=== PATIENT | male | born 1955 | race Caucasian/White ===

== ENCOUNTER 2017-04-13 20:23 | Inpatient (IN) | payer OTHER ==
[~2017-04-13] VITALS: Ht 182.9 cm; Wt 76.2 kg
[~2017-04-13 20:23] MED LIST: Propofol 10 mg/mL 20 mL Inj IVPUSH ONE
--- NOTE | 2017-04-13 20:33 | ED.REPORT ---
HPI-Dyspnea / Wheezing Date of Service Apr 13, 2017 ED Provider: Dr. Choi Pt is a 61 year old male with a history of asthma who presents to the ED via EMS with concerns for respiratory distress. He was found struggling to breath, but awake and alert. He was given several albuterol treatments and epinephrine without any improvement. He remained hypoxic, and was placed on 15L of O2 as well as on CPAP. He presents responsive only to pain. Per EMS, he was recently treated for a chest cold. Nursing Notes Stated Complaint: RESPIRATORY DISTRESS Chief Complaint: Respiratory Distress Nursing Notes Reviewed: Yes Allergies: Coded Allergies: No Known Allergies (Unverified , 04/13/17) Scheduled PRN Albuterol Neb Soln (Albuterol Neb Soln) 2.5 Mg/3 Ml Vial.neb 2.5 MG INHALATION Q4H PRN PRN For Dyspepsia or Heartburn Fluticasone Propionate (Flonase Allergy Relief) 50 Mcg/Actuation [place].susp 9.9 ML NS DIRECTED PRN PRN For Congestion General Time Seen by MD: 20:32 Chief Complaint Shortness of breath Hx Obtained From: EMS Arrived By: Ambulance Sudden in Onset?: Yes Onset Occurred: Just prior to arrival Symptom Duration: Since onset Location: : None Similar Sx Previous: Yes Past Medical History Past Medical History Asthma Review of Systems Constitutional: Denies: Chills, Fever, Malaise, Weakness - generalized Respiratory: Reports: Non-productive cough, Shortness of breath, Wheezing Cardiovascular: Denies: Chest pain, Syncope Musculoskeletal: Denies: Back pain, Extremity pain, Neck pain Complete sys rev & neg: except as marked. Physical Exam Initial Vital Signs Vital Signs (First) Date Time Temp Pulse Resp B/P Pulse Ox O2 Delivery O2 Flow Rate FiO2 04/13/17 20:52 111 22 128/87 99 Room Air 04/13/17 20:52 15 See paper chart Initial VS: Reviewed, Vital signs abnormal Alertness: Positive: Disoriented Neck: Atraumatic, Supple, No meningismus Cardiovascular: Heart rate NL, Regular rhythm Interpretation & Diagnostics Interpretation & Diagnostics: pH: 6.96 pCO2: 105 pO2: 404 Bicarb: 22.5 Lab Results Interpretation Result Diagram: 04/13/17202504/13/172025 Test 04/13/17 20:26 White Blood Count 7.5th/mm3 (3.8-10.1) Red Blood Count 5.04mil/mm3 (4.40-5.80) Hemoglobin 15.3g/dL (13.8-17.2) Hematocrit 46.6% (41.0-50.0) Mean Corpuscular Volume 92.5fL (81-100) Mean Corpuscular Hemoglobin 30.4pg (27.0-35.0) Mean Corpuscular Hemoglobin Concent 32.8% (32.0-37.0) Red Cell Distribution Width 13.2% (12.3-15.4) Platelet Count 169bil/L (150-400) Neutrophils (%) (Auto) 32.7% (40-74) Lymphocytes (%) (Auto) 49.5% (14-46) Monocytes (%) (Auto) 5.5% (4-12) Eosinophils (%) (Auto) 11.8% (0-5) Basophils (%) (Auto) 0.4% (0-3) Hold Purple Top Tube Received (Received) Hold Blue Top Tube Received (Received) Sodium Level 139mEq/L (134-144) Potassium Level 4.4mEq/L (3.5-5.2) Chloride Level 104mEq/L (97-108) Carbon Dioxide Level 21mmol/L (18-29) Blood Urea Nitrogen 17mg/dL (8-27) Creatinine 0.74mg/dL (0.76-1.27) Estimat Glomerular Filtration Rate 115mL/min (>59) Glucose Level 172mg/dL (60-99) Lactic Acid Level 2.2mmol/L (0.4-2.0) Calcium Level 9.4mg/dL (8.5-10.1) Total Bilirubin 0.4mg/dL (0.0-1.2) Aspartate Amino Transf (AST/SGOT) 22U/L (0-50) Alanine Aminotransferase (ALT/SGPT) 18U/L (0-44) Alkaline Phosphatase 78U/L (25-160) Troponin T 0.010ug/L (0.0-0.011) Pro-B-Type Natriuretic Peptide 62.58pg/mL (0-210) Total Protein 7.6g/dL (6.4-8.4) Albumin 4.5g/dL (3.4-5.0) Procalcitonin 0.03ng/mL (0.00-0.08) Hold Red Top Tube Received (Received) Hold [place] Top Tube Received (Received) Hold [place] Top Tube Received (Received) Lab Results Interpretation: Markedly abnormal ABG ECG Interpretation ECG Interpretation: SR - 95 Borderline prolonged KS interval Probable left atrial enlargement Nonspecific intraventricular conduction delay Inferior infarct, acute Time: 20:25 Interpreted by: ED physician X-Ray Chest Interpretation Chest Xray Interpretation: IMPRESSION: 1. Mild atypical pneumonia. Dictated by: Anabella Hazel M.D. on 04/13/2017 at 20:50 View: Portable, 1 view Interpretation / Wet Read by: Interpret - Radiologist Procedures Intubation Intubation Procedure: Patient was initially intubated with Mac laryngoscope, but it was immediately recognized that it was an esophageal intubation and repeat intubation was done immediately with the glide scope Time: 20:15 Procedure Performed by: ED physician Consent / Setup / Site Prep: Consent from spouse (spouse told paramedics that intubation was okay if necessary), No consent - emergent, Time-out performed, Oxygen administered, Pulse oximeter applied, house shorer applied , Hand hygiene observed Patient Position: Sniff position Blade / ET Tube / Route: Mac (unsuccessful esophageal intubation immediately noted), Lynx scope (verified esophageal intubation and then reintubated expeditiously), ET tube cuffed, Route: oral Neuromuscular Agent: Succinylcholine (100 mg IV) ET Confirmation: Direct visualization, BS equal, End tidal CO2 device, CXR, Rising O2 sat Secured / Marked: ET tube device Complications: None Post-Procedure: Condition improved, Tolerated procedure well, Patient stable Re-Eval/Medical Decision Med Decision/Clinical Course 61-year-old male in acute respiratory failure secondary to status asthmaticus after receiving multiple nebulizers and CPAP by the ambulance. He was unresponsive upon arrival. Intubation was done with succinylcholine and no other sedation. He was placed on a ventilator. His sensorium improved and then he required propofol sedation. Chest x-ray showed good tube position and evidence of atypical pneumonia per the radiologist. Blood cultures were done. He was given Solu-Medrol, magnesium, and further nebulizer treatments. His ABG shortly after intubation showed a pH of 6.9 and a PCO2 of 105. He was given an amp of bicarbonate followed by a drip of sodium acetate. The case was discussed with Dr. Felix the patient will be admitted to the CCU. Source of Hx: Old records Re-Evaluation/Progress : Time of Eval: 21:12 Re-Evaluation/Progress Note: Pt family is informed of the pt's status and the need to admit him at this time. They understand and agree, all questions are addressed. Consultation : Referral / Consult Name: GavinMariano garcíaen Edgardo Consulted With: Hospitalist Call Returned at: 21:12 Manager E Learning: Will see patient, Agrees with plan, Accepts admit Counseled Regarding: Diagnosis, Lab results, Need for admission Discharge & Departure Impression: Primary Impression: Acute respiratory failure Respiratory failure complication: hypercapnia Qualified Code: J96.02 - Acute respiratory failure with hypercapnia Additional Impressions: Status asthmaticus Asthma severity: severe persistent Qualified Code: J45.52 - Severe persistent asthma with status asthmaticus Atypical pneumonia Disposition: ADMITTED TO HOSPITAL Discharge Condition All VS Reviewed: Yes Condition: Stable Crit Care Except Billable Proc Time Spent: 30-74 minutes (60 minutes) Services Performed: Patient management by me, Time spent at bedside, Reviewing test results, Reviewing imaging, Discussing patient care, Documentation in record, Time with fam/surrogate Scribe Attestation Portions of this note were transcribed by Sarah Galarza. I, Dr. Crowley personally performed the history, physical exam and medical decision-making; I reviewed and confirmed the accuracy of the information in the transcribed note. Signed by: Karen Hua, 04/13/2017 2173 Patrick Choi MD Apr 13, 2017 20:33 EMILIA GALARZA Apr 13, 2017 20:42
[2017-04-13] MEDS ORDERED: Magnesium Sulf 2 Gm/50mL Water 2 GM in IV Premix 1 EACH IV ONE (20:35)
[2017-04-13] MEDS ORDERED: MethylprednisoLONE Sodium Succinate 62.5 mg/mL 2 mL Inj IVPUSH ONE (20:35)
[2017-04-13] MEDS ORDERED: Albuterol 2.5 mg/3 mL Inhalation Solution NEB ONE (20:35)
[2017-04-13] MEDS ORDERED: Albuterol-Ipratropium 3 mL Inhalation Solution NEB ONE (20:35)
[2017-04-13] MEDS: Propofol Inj 1,000,000 MCG in IV Premix 1 EACH IV SCH ×2 (20:38→23:41)
[2017-04-13] MEDS ORDERED: Propofol 10,000 mCg/mL 100 mL Inj ONE (20:40)
[2017-04-13] MEDS ORDERED: Succinylcholine Chloride 20 mg/mL 5 mL Inj IVPUSH ONE ×2 (20:40→21:57)
[2017-04-13 20:41] LABS: BASOPHILS % (AUTO) 0.4 % (0-3); EOSINOPHILS % (AUTO) 11.8 % (0-5); MONOCYTES % (AUTO) 5.5 % (4-12); Mean Corpuscular Hemoglobin 30.4 pg (27.0-35.0); Mean Corpuscular Volume 92.5 fL (81-100); NEUTROPHILS % (AUTO) 32.7 % (40-74); Platelet Count 169 bil/L (150-400)
[2017-04-13] MEDS ORDERED: Propofol 10 mg/mL 20 mL Inj IVPUSH ONE ×2 (20:45→21:15)
[2017-04-13 20:52] VITALS: BP_SYST 128; BP_SYST 197; BP_DIAS 118; BP_DIAS 87; PULSE 111; PULSE 142; RESP 22; RESP 40; O2SAT 70; O2SAT 99
--- NOTE | 2017-04-13 20:52 | DRSVH ---
PROCEDURE: X-RAY CHEST ONE VIEW, PORTABLE ([id number]) INDICATIONS: asthma, resp failure, ETT placement TECHNIQUE: One view of the chest was acquired. COMPARISON: None. FINDINGS: Surgical changes and devices: ETT is present, tip of which is in expected location. Lungs and pleura: No pleural effusions or pneumothorax. Mild patchy bilateral perihilar opacity. Mediastinum: Mediastinal contours appear normal. Heart size is normal. Bones and chest wall: No suspicious bony lesions. Overlying soft tissues appear unremarkable. IMPRESSION: 1. Mild atypical pneumonia. Dictated by: Anabella Hazel M.D. on 04/13/2017 at 20:50 Approved by: Anabella Hazel M.D. on 04/13/2017 at 20:51
[2017-04-13 21:00] VITALS: O2SAT 100
[2017-04-13 21:05] LABS: TROPONIN T 0.01 ug/L (0.0-0.011)
[2017-04-13] MEDS ORDERED: ALBU2.5V4 INHALATION (21:05)
[2017-04-13] MEDS ORDERED: FLUT9.9S NS (21:05)
[2017-04-13] MEDS ORDERED: Azithromycin Inj 500 MG in Dextrose 5% w/Vial Mate 250 ML IV ONE (21:05)
[2017-04-13] MEDS ORDERED: cefTRIAXone Inj 2,000 MG in Dextrose 5% Minibag Plus 50 ML IV ONE (21:05)
--- NOTE | 2017-04-13 21:05 | ABG ---
DateTimeAnalyzed 20:59:00 -_ pH ____6.961 - 7.350 7.450 pCO2 105 -mmHg 35.0 45.0 pO2 405 -mmHg 69.0 116 HCO3- ___22.5__ -mmol/L 22.0 26.0 ABE __-13.6__ -mmol/L -2.0 2.0 tHb ___14.8__ -g/dL O2Hb ___98.0__ -% COHb ____0.0__ -% MetHb ____1.0__ -% sO2 ___98.7__ -% 25.0 FIO2 ___50.0__ -% Drawn By LT - Date/Time Notified____ 21:05:00 -_ Notified By LT - Notified Whom DR LEIBRAND - B 758 -mmHg tO2 ___21.3__ -Vol% Justice test _Positive -
[2017-04-13] MEDS ORDERED: Sodium Bicarb (50 mEq) 8.4% 1 mEq/mL 50 mL Syringe IVPUSH ONE (21:15)
[2017-04-13] MEDS ORDERED: Albuterol 1.25 mg/3 mL Inhalation Solution NEB PRN (21:45)
[2017-04-13] MEDS ORDERED: Propofol 10,000 mCg/mL 20 mL Inj IV ONE (21:57)
[2017-04-13 21:59] VITALS: BP 141/95; PULSE 114; RESP 22; O2SAT 99
[2017-04-13 22:00] VITALS: BP 108/82; O2SAT 99
--- NOTE | 2017-04-13 22:00 | NUR ---
Admit to CCU Pt admitted to CCU room 2010 from ED. He is intubated and extremely restless/agitated on vent. Tele shows ST 100s-110s. SpO2 high 90s on vent settings, although lungs are coarse throughout and tight/wheezy. OG and Tinsley inserted per CCU protocol. Nebulizers, ABG, and sedation to help with airway management. is at bedside and took home pt belongings. She had all questions answered. Will continue to monitor. Care ongoing
[2017-04-13] MEDS: fentaNYL 2,500 mCg/250 mL 2,500 MCG in IV Premix 1 EACH IV SCH (22:29)
[2017-04-13 22:30] VITALS: BP 108/88; PULSE 106; RESP 20; O2SAT 100
[2017-04-13] MEDS ORDERED: Albuterol 2.5 mg/3 mL Inhalation Solution NEB PRN (22:45)
--- NOTE | 2017-04-13 23:26 | ABG ---
DateTimeAnalyzed 23:19:00 -_ pH ____7.308 - 7.350 7.450 pCO2 ___37.5__ -mmHg 35.0 45.0 pO2 149 -mmHg 69.0 116 HCO3- ___18.3__ -mmol/L 22.0 26.0 ABE ___-7.0__ -mmol/L -2.0 2.0 tHb ___14.8__ -g/dL O2Hb ___96.8__ -% COHb ____0.6__ -% MetHb ____1.0__ -% sO2 ___98.4__ -% 25.0 FIO2 ___40.0__ -% PEEP ____5.0__ -cmH2O Set_RR ___20.0__ -b/min Vt __550.0__ -L Drawn By TLA - Date/Time Notified____ 23:26:00 -_ Spontaneous_RR ___20.0__ -b/min Oxygen Device 1 VENTILATOR - Notified By TLA - Notified Whom Sun RN - B 758 -mmHg tO2 ___20.4__ -Vol% Justice test _Positive -
--- NOTE | 2017-04-13 23:54 | NUR ---
ASSIST INTUBATION. PT HAS A 8.0 TUBE SECURED AT 25@TEETH. BS BILAT AND TUBE PLACEMENT CONFIRMED WITH XRAY AND ETCO2 INDICATOR
[2017-04-14] VITALS (17 sets, daily range): BP systolic 89–116; BP diastolic 49–77; PULSE 78–109; RESP 16–20; O2SAT 91–100
[2017-04-14] MEDS: Albuterol-Ipratropium 3 mL Inhalation Solution NEB SCH ×9 (00:01→17:53)
[2017-04-14] MEDS: Chlorhexidine 0.12% 15 mL Oral Solution MT SCH ×7 (01:02→23:38)
--- NOTE | 2017-04-14 01:11 | PCM.HPMED ---
Subjective Date of Service Apr 13, 2017 Primary Provider: Admitting Physician: Chloe Felix DO Primary Care Physician: Nadya Burns Attending Physician: Chloe Felix DO Admit Status: From the Emergency Department Chief Complaint: Respiratory distress History of Present Illness: Pt is a 61 year old male with a history of asthma who presents to the ED via EMS in respiratory distress. Per his , he had complained of coughing, wheezing, and shortness of breath over the last 3-4 days associated with a recent cold. She states that his coughing and wheezing worsened over the last few days, and today he began to have worsening shortness of breath. This afternoon, he suddenly told her "I can't breathe", and began to decompensate, at which point EMS was contacted. He was found struggling to breathe, but awake and alert. He was given several albuterol nebulizer treatments and epinephrine en route without any improvement. He remained hypoxic, and was placed on 15L of O2 as well as on CPAP while en route. He was found to be unresponsive on arrival , and was intubated. ABG on arrival showed pH of 6.9 and a PCO2 of 105. He was given an amp of bicarbonate followed by a drip of sodium acetate. CXR showed mild patchy bilateral perihilar opacity suspicious for atypical pneumonia. Temp was 36.2, HR 114, RR up to 40, BP 141/95, and O2 sat 99 on the ventilator. Review of Systems: Comprehensive review of systems conducted and was negative except for the pertinent positives listed above. 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 Agitated and coughing on the ventilator, trying to get out of bed and uncooperative. Head: Normocephalic, atraumatic. External ears normal. Eyes: PERRLA, EOMI. Anicteric sclerae. Mouth: Mouth normal, Mucous membranes moist/pink Neck: Neck supple with full range of motion. Chest& Lungs: Diffuse expiratory wheezing bilaterally Cardiovascular: Tachycardic, Normal S1, Normal S2, No murmurs/rubs/gallops Abdomen: Non-tender, Non-distended, No masses, Normoactive bowel tones, Soft Musculoskeletal: Normal range of motion Extremities: No cyanosis/clubbing/edema bilaterally Neurological: Agitated and uncooperative. Lab and Diagnostics Result Diagram: 04/13/17202504/13/172025 Assessment & Plan Pt is a 61 year old male with a history of asthma who presents to the ED via EMS in respiratory distress, and was intubated in the ED. Admitted for status asthmaticus. Acute hypercapnic respiratory failure. Present on admission. Resolving. - Initial ABG: pH 6.96, pCO2 105, bicarb 22.5, pO2 405. Secondary to status asthmaticus. - Repeat ABG after sedation and intubation: pH 7.308, pCO2 37.5, pO2 149, bicarb 18.3. - Mechanical ventilation with decreased I:E ratio. - Continue propofol and fentanyl gtt for sedation Acute status asthmaticus. Present on admission. - Pt presents with severe asthma exacerbation refractory to beta agonist treatment and BiPAP, intubated on admission. Likely secondary to community acquired pneumonia. Received Mg sulfate in ED. - Continue mechanical ventilation - Duoneb q4h - Albuterol neb q2h PRN - Solu Medrol 80 mg q8h Acute sepsis. Present on admission. - Secondary to CAP. Temp 36, HR 142, RR 40 on admission. - NS @ 100 ml/hr - Treat underlying pneumonia - Trend lactic acid Acute respiratory acidosis. Present on admission. Resolving. - ABG as above. Pt received 1 amp of sodium bicarb. Resolved with mechanical ventilation. - Will repeat ABG in AM. Lactic acidosis, acute. Present on admission. - Lactic acid 2.2 on admission. Secondary to infection and respiratory distress. - Trend lactic acid q2h until normal Community acquired pneumonia, acute. Present on admission. - CXR showed mild patchy bilateral perihilar opacity. - Ceftriaxone and azithromycin IV - Strep pneumo and Legionella urine antigens - Sputum and blood cultures pending - MRSA screen Hyperglycemia, acute. Present on admission. - Pt has no prior history of diabetes. BG 172 on admission. - A1c ordered. - Recheck BG in AM with CMP - Bowel regimen as needed - Antiemetic as needed - Famotidine for GI prophylaxis Patient is admitted under inpatient status with expected length of stay greater than 2 midnights due to severity of presenting symptoms, risk of adverse event, and complexity of treatment plan. GI Prophylaxis: H2 carlo VTE Prophylaxis: Sub-Q Heparin (Unfractionated) Resuscitation Status: CPR: Attempt Resuscitation Attending Statement The patient was seen and examined together with house staff on 04/13/2017 and I agree with the history, exam and plan as outlined in the note above. Fitz William Apr 13, 2017 22:52 Chloe Felix DO Apr 14, 2017 04:21
--- NOTE | 2017-04-14 01:11 | ABG ---
DateTimeAnalyzed 01:04:00 -_ pH ____7.400 - 7.350 7.450 pCO2 ___30.6__ -mmHg 35.0 45.0 pO2 133 -mmHg 69.0 116 HCO3- ___18.6__ -mmol/L 22.0 26.0 ABE ___-4.6__ -mmol/L -2.0 2.0 tHb ___14.7__ -g/dL O2Hb ___97.3__ -% COHb ____0.7__ -% MetHb ____0.8__ -% sO2 ___98.8__ -% 25.0 FIO2 ___40.0__ -% PEEP ____5.0__ -cmH2O Set_RR ___20.0__ -b/min Vt __550.0__ -L Drawn By TLA - Date/Time Notified____ 01:11:00 -_ Spontaneous_RR ___20.0__ -b/min Oxygen Device 1 VENTILATOR - Notified By TLA - Notified Whom Radha-RN - B 758 -mmHg tO2 ___20.3__ -Vol% Justice test _Positive -
[2017-04-14] MEDS ORDERED: Albuterol-Ipratropium 3 mL Inhalation Solution NEB SCH (02:30)
[2017-04-14] MEDS: Propofol Inj 1,000,000 MCG in IV Premix 1 EACH IV SCH ×6 (03:10→23:37)
[2017-04-14] MEDS: 0.9% Sodium Chloride 1,000 ML IV SCH ×3 (03:11→16:13)
[2017-04-14] MEDS: Albuterol 2.5 mg/3 mL Inhalation Solution NEB PRN ×4 (03:33→16:02)
[2017-04-14] MEDS ORDERED: Albuterol 2.5 mg/3 mL Inhalation Solution NEB PRN (06:05)
[2017-04-14] MEDS ORDERED: Albuterol 2.5 mg/3 mL Inhalation Solution NEB ONE (06:08)
[2017-04-14] MEDS ORDERED: MethylprednisoLONE Sodium Succinate 40 mg/mL Inj IVPUSH SCH ×2 (06:24→20:30)
[2017-04-14 07:20] LABS: BASOPHILS % (AUTO) 0 % (0-3); EOSINOPHILS % (AUTO) 0 % (0-5); MONOCYTES % (AUTO) 2.2 % (4-12); Mean Corpuscular Hemoglobin 30.2 pg (27.0-35.0); Mean Corpuscular Volume 90.7 fL (81-100); NEUTROPHILS % (AUTO) 93.7 % (40-74); Platelet Count 204 bil/L (150-400)
[2017-04-14] MEDS ORDERED: Pantoprazole 4 mg/mL 10 mL Inj IVPUSH SCH (07:30)
[2017-04-14] MEDS: Famotidine Inj 20 MG in IV Premix 1 EACH IV SCH ×2 (07:52→20:10)
[2017-04-14] MEDS: Heparin 5,000 Unit/mL Inj SUBQ SCH ×2 (07:52→16:15)
[2017-04-14] MEDS ORDERED: Budesonide 0.5 mg/2 mL Inhalation Solution NEB SCH ×2 (09:00→21:00)
--- NOTE | 2017-04-14 09:06 | NUR ---
NUTRITION ASSESSMENT Assess: 61 YO M admitted to CCU for acute respiratory failure with asthma exacerbation secondary to pneumonia. Pt currently intubated. Pt has been NPO X 1 day. PMHX: Asthma. DIET: NPO. LABS: Cr 0.74, Glu 177 MEDICATIONS: Reviewed. Solu-medrol, Fentanyl, Propofol. GI: No BM noted. SKIN: No issues noted. ANTHROPOMETRICS: Wt: 82.2 kg, BMI 24.6 kg/m2, Admit wt: 82.2 kg. ESTIMATED NEEDS: VENT Calories: 6906-8091 kcal/day (20-25 kcal/kg BW) Protein: 123-148 g/day (1.5-1.8 g/kg BW) NUTRITION DIAGNOSIS: 1) Inadequate oral intake related to decreased ability to consume sufficient energy as evidenced by NPO/VENT status. INTERVENTION: 1) Will await plan of care decisions. If pt remains intubated, recommend initiating nutrition support in the next 24-48 hours. MONITOR/EVALUATE: NPO/Vent status, nutrition support, POC, labs, GI/nutrition status. Follow per high nutrition risk guidelines.
[2017-04-14 09:19] LABS: APPEARANCE,URINE HAZY (CLEAR,HAZY); COLOR,URINE STRAW (YELLOW); OCCULT BLOOD,URINE TRACE (NEGATIVE); PH,URINE 5.5 (5.0-8.0); UROBILINOGEN,URINE NORMAL (NORMAL)
--- NOTE | 2017-04-14 09:19 | CONS ---
[address] [address] CONSULTATION REPORT PATIENT: PAPO BEVERLY : 1955 MR#: [id number] ADMIT: 04/13/2017 JOB ID: [id number] DATE OF SERVICE: 04/14/2017 REQUESTING PHYSICIAN: Fitz William DO REASON FOR CONSULTATION: Status asthmaticus. HISTORY OF PRESENT ILLNESS: The patient is a 61-year-old male with a history of asthma who according to his had been complaining of some shortness of breath, cough, and wheezing for 3-4 days prior to admission. The afternoon of admission he complained of a marked increase in shortness of breath. Paramedics were called and he was found to be struggling to breathe, but awake and alert. Given epinephrine and nebulizer without improvement. Noted to be hypoxic treated with supplemental oxygen and subsequently CPAP. Upon arrival in the emergency department. He was unresponsive and intubated. No other history is available with that history being taken from chart notes. REVIEW OF SYSTEMS: Unable to obtain as the patient is currently intubated and sedated on the ventilator. ALLERGIES: None known. MEDICATIONS: Include p.r.n. albuterol and nasal Flonase. 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 Smoking history: None. PHYSICAL EXAMINATION: Currently temperature is 37.3. Pulse mid 70s. Respiratory rate 18. Blood pressure 112/68. O2 sat on FiO2 30%, PEEP of 6 is 100%. I and O shows 0.9 L in, 1 L out. General appearance: Sedated on ventilator. Pupils about 1-2 mm with the patient receiving both fentanyl and propofol. With stimulation does open his eyes. Seems to look towards examiner though makes no attempt at response. Conjunctivae are pink. Nose and throat could not be examined. Chest decreased breath sounds bilaterally. There are diffuse inspiratory and expiratory wheezes with a tidal volume of 550, rate of 18, FiO2 0.3, and a PEEP of 6. Peak inspiratory pressure 33, plateau is 18. PEEP is set at 6, measured at 8 to 9. Heart regular rhythm. Heart tones normal. Abdomen is soft. A few bowel tones noted. Extremities: No clubbing, cyanosis. No pretibial edema. Skin no rash. Chest x-ray shows the endotracheal tube in good position. There are few patchy ill-defined opacities. Most recent arterial blood gases on an FiO2 of 40%, PEEP of 5, respiratory rate of 20, with tidal volume of 550 shows a pO2 of 133, pCO2 of 30, pH of 7.40. LABORATORY DATA: White count of 8600 with 93 polymorphonuclears, no bands, 4 lymphs, 2 monocytes. Hemoglobin 14. Platelet count 204,000. Lab on admission showed a sodium 139, potassium 4.4, chloride 104, CO2 21, BUN 17, creatinine 0.7. Glucose 172. Lactic acid 2.2. Calcium 9.4 with an albumin of 4.5. Total bilirubin 0.4. AST 22, ALT 18, alkaline phos 78. Troponin T is 0.01. ProBNP is 62. Sputum studies are pending. Urine antigen is pending. ASSESSMENT: 1. Asthma. The patient is doing reasonably well. Has a mild degree of autoPEEP suggesting air trapping, however his ventilation is currently at 10.8 L. Ventilation is normal and in fact, we are overventilating the patient a bit. He is receiving Solu-Medrol and q.4 hour DuoNeb. Certainly the DuoNeb can be increased. Can start on inhaled steroids as well as the parenteral steroids and see how he does. Apparently has made significant strides over the last few hours. Apparently has a strong anxiety component and family has suggested he may need to be extubated while he is still sedated. That will make life somewhat difficult with asthmatic who has just been intubated. The patient is auto-PEEPing to some extent. We can drop his tidal volume a bit maybe drop his rate a bit, increase his inspiratory flow a bit and see how we do. The auto-PEEP is not particularly high though makes the work of breathing a little more difficult once spontaneous respiration resumes. 2. Possible upper respiratory tract infection. has described cold-like symptoms. I have not been able to speak to her, but will a get a few more details. However, might need to evaluate that a bit more carefully. Currently receiving azithromycin and ceftriaxone. Do not know that the latter is needed, pending sputum cultures. Will get a respiratory viral panel to see where we are with regard to the viral infection. PLAN: 1. Respiratory viral panel. 2. Increase nebulized albuterol to q.2 hours utilizing nebulized ipratropium q.4. 3. Budesonide nebulized 0.5 mg now and q.12. 4. Continue parenteral steroids. 5. Vent changes to minimize auto-PEEP. 6. Will need to speak with nursing regarding his anxiety component to see if we can taper his medications and hopefully assess for extubation. TIME SPENT: Time spent so far in critical care 50 minutes.
--- NOTE | 2017-04-14 11:11 | DRSVH ---
PROCEDURE: X-RAY CHEST ONE VIEW, PORTABLE ([id number]) INDICATIONS: RESP. DISTRESS TECHNIQUE: One view of the chest was acquired. COMPARISON: [facility], CR, XR CHEST 1VW (PORTABLE), 04/13/2017, 20:25. [facility], CR, XR CHEST 1VW (PORTABLE), 04/14/2017, 6:19. FINDINGS: Surgical changes and devices: Endotracheal and nasogastric tubes appear similar in position, with the tip of the nasogastric tube not included on the current study. Lungs and pleura: No pleural effusions or pneumothorax. Lungs are clear with resolution of the patc hy opacities seen on the prior 04/13/17 study. Mediastinum: Mediastinal contours appear normal. Heart size is normal. Bones and chest wall: No suspicious bony lesions. Overlying soft tissues appear unremarkable. IMPRESSION: 1. Resolution of patchy opacities seen on the 04/10/17 study which may have reflected pulmonary edema . No acute consolidation. Dictated by: Torres Barrow M.D. on 04/14/2017 at 11:05 Approved by: Torres Barrow M.D. on 04/14/2017 at 11:09
[2017-04-14] MEDS ORDERED: Sodium Chloride LOK Flush 10 mL Syringe IVFLUSH PRN ×2 (11:25)
[2017-04-14] MEDS ORDERED: Cisatracurium Inj 200,000 MCG in 0.9% Sodium Chloride 100 ML, Pharmacy To Mix 1 EA IV ONE (11:25)
--- NOTE | 2017-04-14 11:33 | NUR ---
Social Work Note: Brief Note/Multidisciplinary Rounds Data& Assessment: Pt was discussed in AM rounds today, per MD pt requires intubation and remains on the vent. Cl Briseno is a 61 year old male admitted on 04/13/2017 for acute respiratory failure with pneumonia. Pt has [employer] out of state insurance coverage. SW to follow up with pt regarding initial assessment and discharge planning when appropriate. No MD orders identified at this time. SW to continue to follow. Plan: Pt remains on the vent. SW to follow up with pt regarding initial assessment and discharge planning when appropriate. No MD orders identified at this time. SW to continue to follow. ELEAZAR Dupree
[2017-04-14] MEDS ORDERED: Norepinephrine 8,000 mCg/250 mL NS Premix IV ONE (11:37)
[2017-04-14] MEDS: Cisatracurium 200,000 mCg/100 mL NS IV SCH ×4 (11:47→23:36)
[2017-04-14] MEDS: cefTRIAXone Inj 1,000 MG in Dextrose 5% Minibag Plus 50 ML IV SCH ×2 (11:48→23:38)
[2017-04-14] MEDS: Norepineph 8,000 mCg/250 mL NS 8,000 MCG in IV Premix 1 EACH IV SCH (12:00)
[2017-04-14 12:19] LABS: Magnesium 2.2 mg/dL (1.6-2.6); Phosphorus 1.9 mg/dL (2.5-4.9)
--- NOTE | 2017-04-14 12:38 | DRSVH ---
PROCEDURE: X-RAY CHEST ONE VIEW, PORTABLE ([id number]) INDICATIONS: INTUBATED. TECHNIQUE: One view of the chest was acquired. COMPARISON: [facility], CR, XR CHEST 1VW (PORTABLE), 04/13/2017, 20:25. FINDINGS: Surgical Changes and Devices: ETT present projected over 4.8 cm above the vlad. Nasogastric tube has been placed tip traversing the GE junction. Lungs and Pleura: No pleural effusions or pneumothorax. Lungs are clear. Mediastinum: Mediastinal contours appear normal. Heart size is normal. Bones and Chest Wall: No suspicious bony lesions. The overlying soft tissues appear unremarkable. IMPRESSION: 1. Interval placement of nasogastric tube, otherwise, no acute cardiopulmonary process. Dictated by: Maximiliano CHICAS Interpreted: Reynaldo Rios MD on 04/14/2017 at 9:49 Transcribed by: SULTANA on 04/14/2017 at 15:38 Approved by: Reynaldo Rios M.D. on 04/14/2017 at 16:58
[2017-04-14] MEDS: LORazepam 100 mg/100 mL NS 100 MG in IV Premix 100 EACH IV SCH (13:21)
--- NOTE | 2017-04-14 13:36 | ABG ---
DateTimeAnalyzed 13:27:08 -_ pH ____7.155 - pCO2 ___69.1__ -mmHg pO2 ___69.2__ -mmHg HCO3- ___24.3__ -mmol/L 22.0 26.0 ABE ___-4.6__ -mmol/L tHb ___12.9__ -g/dL O2Hb ___89.0__ -% COHb ____0.8__ -% 1.5 MetHb ____0.9__ -% sO2 ___90.6__ -% FIO2 ___55.0__ -% Drawn By rn - Date/Time Notified____ 13:36:00 -_ Notified By btl - Notified Whom ___Dr. Kendregan - K+ ____4.8__ -mmol/L tO2 ___16.2__ -Vol% Justice test N/A -
--- NOTE | 2017-04-14 14:32 | PROG NOTE ---
[address] [address] PROGRESS NOTE PATIENT: PAPO BEVERLY : 1955 MR#: [id number] ADMIT: 04/13/2017 JOB ID: [id number] DATE: 04/14/2017 PROBLEM: Status asthmaticus. SUBJECTIVE: Called emergently because of marked increase in airway pressures. The tube was thought to be advanced, about 2 cm after turning. Repositioning of the endotracheal tube did not result in any improvement in the airways. Pressure continued to rise. Called to evaluate the patient. OBJECTIVE: Blood pressure initially was 80s over 50s. Dropped to as low as 54/42. Pulse which had been running in the 60s was in the mid 90s. O2 sat was 84%. Chest showed markedly decreased breath sounds. There were some mild inspiratory wheezes. There was all almost no expiratory sound. Heart: Regular rhythm. Heart tones normal. Abdomen soft. Ventilator with tidal volume of 550 was running in the low 40s. It kept increasing. Expiratory tidal volume was in the mid 100s. Patient given nebulized bronchodilators without effect. Peak pressures continued to rise. Tidal volume dropped to about 450. Peak airway pressure was 49. Plateau was 22. PEEP was initially set at five and was 8 or 9 this morning. Up well over 20 at this point. Blood pressure dropped. Patient given a liter of saline. Blood pressure christ to 1/3 over 53. Tidal volume dropped to 340. Rate dropped to 12. Still with some expiratory fluttering of airflow. Measured PEEP dropped to 12 with the patient paralyzed. He had been fighting the ventilator with taking deeper breaths, apparent expiratory collapse of the airway. With paralysis, the airway improved somewhat. No longer collapsing on exhalation. No longer auto-PEEPing. With PEEP set at 12, no auto PEEP noted. Tidal volume slowly increased to 370. Now getting expiratory tidal volumes of about 370. Subsequently increased to 390 with set PEEP at 12, measured PEEP at about 14. Oxygenation improved from 84 to 97, with an FiO2 increased from 0.3-0.55. Hemodynamics improved, though still with a peak inspiratory pressure of 44, plateau 22. Patient started on q.1 nebulized albuterol until better IV venous access obtained, in which case, we will probably start continuous nebulized albuterol. Steroids raised to 500 mg daily of Solu-Medrol. PLAN: 1. Albuterol 5 mg q.1 h. If not improved after PICC line placed, will start continuous nebulization 50 mg an hour. 2. Solu-Medrol IV push 125 mg q.6. 3. Vent change to tidal volume of 390, rate of 12, PEEP of 12, FiO2 0.55. 4. Placement of PICC line for better IV access and for increased drips. 5. IV cisatracurium. 6. If sedation not adequate, will add Ativan in order not to drop his pressure so much, which is likely due to auto PEEP and propofol. 7. Venous gases after PICC line placed. 8. Norepinephrine if needed to maintain a MAP of 65. 9. Continue IV antibiotics. 10. Check a stat magnesium, phosphorus. Additional time spent, 1 hour 12 minutes. informed of marked change in status.
[2017-04-14] MEDS: MethylprednisoLONE Sodium Succinate 62.5 mg/mL 2 mL Inj IVPUSH SCH ×2 (14:58→20:10)
--- NOTE | 2017-04-14 16:24 | PCM.PNMED ---
Subjective Date of Service Apr 14, 2017 Subjective Nurse reports that patient agitated overnight on ventilator with ST in the 100s to 110s. ABG at 23:00 showed pH 7.3, CO2: 37.5, O2: 149, HCO3: 18.3. Placed on Fentanyl 1,000,000mcg and Propofol 2,500mcg and tolerating well. Complete ROS unable to be complete as patient is on ventilator. Exam Vital Signs Vital Sign - Last Date Time Temp Pulse Resp B/P Pulse Ox O2 Delivery O2 Flow Rate FiO2 04/14/17 15:55 107 89/51 96 55 04/14/17 12:30 Ventilator 04/14/17 12:30 36.5 16 04/13/17 20:52 15 Intake and Output 04/13/17 04/13/17 04/14/17 Cumulative From/Thru 15:00 23:00 07:00 04/13/17 20:52 - 04/13/17 22:30 Intake Total 1000 ml 1000 ml Balance 1000 ml 1000 ml Intake IV Total 1000 ml 1000 ml # Voids 1 1 Exam Constitutional: Sedated, ventilated, will open eyes to voice Heart: Sinus tachycardia, no murmurs, no edema Lungs: Patient on ventilator, diffuse wheeze throughout ABD; Soft, bowel sounds present Skin: Warm, dry Psych: unable to assess as patient is sedated. IVs and Medications IV Fluids 3L NS at 100ml/hr Propofol 50mcg/kg/min Fentanyl 12.5m/hr Norepinepherine 7.7ml/hr Lorazepam 100mg 100ml @1ml/hr Medications Reviewed: Medications were reviewed in detail Medications Propofol 50mcg/kg/min Fentanyl 12.5m/hr Norepinepherine 7.7ml/hr Lorazepam 100mg 100ml @1ml/hr Lab and Diagnostics Item Value Date Time Red Blood Count 4.63 mil/mm3 04/14/17 07 Mean Corpuscular Volume 90.7 fL 04/14/17 07 Mean Corpuscular Hemoglobin 30.2 pg 04/14/17 07 Mean Corpuscular Hemoglobin Concent 33.3 % 04/14/17 07 Red Cell Distribution Width 13.2 % 04/14/17 07 Neutrophils (%) (Auto) 93.7 % H 04/14/17 07 Lymphocytes (%) (Auto) 4.0 % L 04/14/17 07 Monocytes (%) (Auto) 2.2 % L 04/14/17 07 Lactic Acid Level 1.9 mmol/L 04/14/17 0815 Phosphorus Level 1.9 mg/dL L 04/14/17 07 Magnesium Level 2.2 mg/dL 04/14/17 07 Glucose Level 177 mg/dL H 04/14/17 07 Estimat Glomerular Filtration Rate 115 mL/min 04/14/17 07 Total Bilirubin 0.3 mg/dL 04/14/17 07 Aspartate Amino Transf (AST/SGOT) 22 U/L 04/14/17 07 Calcium Level 8.7 mg/dL 04/14/17 07 Alanine Aminotransferase (ALT/SGPT) 17 U/L 04/14/17 07 Alkaline Phosphatase 69 U/L 04/14/17 07 Total Protein 6.5 g/dL 04/14/17 07 Albumin 3.9 g/dL 04/14/17 07 Urine Legionella pneumophilia Ag Negative 04/14/17 0845 Result Diagram: 04/14/17 0704/[id number] Microbiology PCR negative MRSA negative Urine Strep Antigen Negative X-Rays, CTs and MRIs PROCEDURE: X-RAY CHEST ONE VIEW, PORTABLE ([id number]) IMPRESSION: 1. Resolution of patchy opacities seen on the 04/10/17 study which may have reflected pulmonary edema. No acute consolidation. Dictated by: Torres Barrow M.D. on 04/14/2017 at 11:05 Approved by: Torres Barrow M.D. on 04/14/2017 at 11:09 12-lead ECG Sinus Tachycardia with nonspecific intraventricular conduction delay. Assessment & Plan Pt is a 61 year old male with a history of asthma who presents to the ED via EMS in respiratory distress, and was intubated in the ED. Admitted for status asthmaticus. Acute hypercapnic respiratory failure. Present on admission. Resolving. - Initial ABG: pH 6.96, pCO2 105, bicarb 22.5, pO2 405. Secondary to status asthmaticus. - ABG @13:27: pH 7.155, CO2: 69.1; O2: 69.2; bicarb: 24.3 - Mechanical ventilation with decreased I:E ratio. Ventilator settings as of 17:44: FiO2: 70; PEEP: 14; Rate: 16; TV: 330; Peak : 41; Plateau: 23; Auto PEEP 4. - Continue propofol and fentanyl gtt for sedation Acute status asthmaticus. Present on admission. - Pt presents with severe asthma exacerbation refractory to beta agonist treatment and BiPAP, intubated on admission. Likely secondary to community acquired pneumonia. Received Mg sulfate in ED. - Continue mechanical ventilation - Duoneb q4h - Albuterol neb q2h PRN - Solu Medrol 80 mg q8h Acute sepsis. Present on admission. - Secondary to CAP. Temp 36, HR 142, RR 40 on admission. - NS @ 100 ml/hr - Treat underlying pneumonia - Trend lactic acid Acute respiratory acidosis. Present on admission. Resolving. - ABG as above. Pt received 1 amp of sodium bicarb. Resolved with mechanical ventilation. - Will repeat ABG in AM. Lactic acidosis, acute. Present on admission. - Lactic acid 2.2 on admission. Most recent 1.9, down from 2.2 on admission. Secondary to infection and respiratory distress. - Trend lactic acid q2h. If AM lactic acid is normalized, stop trending. Community acquired pneumonia, acute. Present on admission. - CXR showed mild patchy bilateral perihilar opacity. - Ceftriaxone 1g IV Q12H - Abx day 1 - azithromycin 500mg IV Q24H - Abx day1 - Strep pneumo and Legionella urine antigens - Sputum and blood cultures pending - MRSA screen negative Hyperglycemia, acute. Present on admission. - Pt has no prior history of diabetes. BG 172 on admission. - A1c ordered. - Recheck BG in AM with CMP - Bowel regimen as needed - Antiemetic as needed - Famotidine for GI prophylaxis Patient is admitted under inpatient status with expected length of stay greater than 2 midnights due to severity of presenting symptoms, risk of adverse event, and complexity of treatment plan. GI Prophylaxis: H2 carlo VTE Prophylaxis: Sub-Q Heparin (Unfractionated) VTE Mechanical Devices: Intermittant Pneumatic CD Resuscitation Status: CPR: Attempt Resuscitation Attending Statement The patient was seen and examined together with Dr. Carter on 04/15/17 and I agree with the history, exam and plan as outlined in the note above. Coleman Carter DO Apr 14, 2017 16:24 April Ramírez DO Apr 19, 2017 13:21
--- NOTE | 2017-04-14 16:58 | DRSVH ---
PROCEDURE: X-RAY PICC LINE PLACEMENT BY NURSE ([id number]) INDICATIONS: IV access COMPARISON: None. FINDINGS: PICC was placed by the intravenous therapy team from the right side. Fluoroscopic spot fi lm demonstrates tip projected over the lower SVC. IMPRESSION: Tip of PICC projected over the lower SVC . Dictated by: Maximiliano CHICAS Interpreted: Reynaldo Rios MD on 04/14/2017 at 13:43 Approved by: Reynaldo Rios M.D. on 04/14/2017 at 16:56
[2017-04-14] MEDS: fentaNYL 2,500 mCg/250 mL 2,500 MCG in IV Premix 1 EACH IV SCH (17:25)
--- NOTE | 2017-04-14 17:48 | NUR ---
P: Severe Respiratory Distress I: Pt had episodes of peak pressures 54 and greater. Nimbex gtt on at 3 mcqs. Fentanyl 125 mcqs and propofol 50 mcqs. Ativan 2mg/hr and pt BIS 40-50. Train of four 1:4. Dr. Brooks and RT Alek Javier at bedside most of the day. Peep 16. 1.5 liters bolus NS given for BP. Norepinephrine at bedside to start gtt if needed. Rt PICC placed. Albuterol stopped and pt's Peak pressures dropped to 38-40 unknown cause. Pt not tolerating turning at all and CLRT on as much as possible. at bedside and updated on pt's condition and plan of care. Afebrile. NS now 100cc/hr. Tinsley patent and drained 450cc. OGT LCS 150cc green output. MRSA swab and Viral PCR sent. UA sent as well. E: Guarded. S: Restraints removed once pt more stable and nimbex infusing. Frequent rounding.
--- NOTE | 2017-04-14 19:45 | ABG ---
DateTimeAnalyzed 19:37:32 -_ pH ____7.103 - pCO2 ___75.6__ -mmHg pO2 ___79.1__ -mmHg HCO3- ___23.6__ -mmol/L 22.0 26.0 ABE ___-6.2__ -mmol/L tHb ___13.3__ -g/dL O2Hb ___93.6__ -% COHb ____0.7__ -% 1.5 MetHb ____0.5__ -% sO2 ___94.7__ -% FIO2 ___21.0__ -% PEEP ___14.0__ -cmH2O Set_RR 16 -b/min Vt __330.0__ -L Drawn By RN - Date/Time Notified____ 19:45:00 -_ Spontaneous_RR 16 -b/min Oxygen Device 1 VENTILATOR - Notified By MD - Notified Whom RN C.FELECIA - K+ ____5.7__ -mmol/L tO2 ___17.6__ -Vol% Justice test N/A -
[2017-04-14] MEDS ORDERED: Epinephrine Racemic 2.25% 0.5 mL Inhalation Solution NEB PRN (21:00)
[2017-04-14] MEDS: Azithromycin Inj 500 MG in Dextrose 5% w/Vial Mate 250 ML IV SCH (23:38)
[2017-04-15] VITALS (13 sets, daily range): BP systolic 97–111; BP diastolic 50–58; PULSE 62–93; RESP 16; O2SAT 95–98
--- NOTE | 2017-04-15 00:12 | ABG ---
DateTimeAnalyzed 00:05:00 -_ pH ____7.121 - 7.350 7.450 pCO2 ___70.5__ -mmHg 35.0 45.0 pO2 236 -mmHg 69.0 116 HCO3- ___22.0__ -mmol/L 22.0 26.0 ABE ___-8.5__ -mmol/L -2.0 2.0 tHb ___13.4__ -g/dL O2Hb ___97.5__ -% COHb ____0.6__ -% MetHb ____0.6__ -% sO2 ___98.7__ -% 25.0 FIO2 ___21.0__ -% PEEP ___14.0__ -cmH2O Set_RR ___16.0__ -b/min Vt __330.0__ -L Drawn By MD - Date/Time Notified____ 00:11:00 -_ Spontaneous_RR ___16.0__ -b/min Oxygen Device 1 VENTILATOR - Notified By MD - Notified Whom RN C.FELECIA - B 757 -mmHg tO2 ___18.9__ -Vol% Justice test N/A -
[2017-04-15] MEDS: Heparin 5,000 Unit/mL Inj SUBQ SCH ×4 (00:34→23:42)
[2017-04-15] MEDS: MethylprednisoLONE Sodium Succinate 62.5 mg/mL 2 mL Inj IVPUSH SCH ×4 (02:37→19:37)
[2017-04-15] MEDS: Propofol Inj 1,000,000 MCG in IV Premix 1 EACH IV SCH ×3 (03:23→19:59)
[2017-04-15] MEDS: Chlorhexidine 0.12% 15 mL Oral Solution MT SCH ×6 (03:23→23:42)
--- NOTE | 2017-04-15 04:18 | ABG ---
DateTimeAnalyzed 04:10:27 -_ pH ____7.206 - 7.350 7.450 pCO2 ___58.7__ -mmHg 35.0 45.0 pO2 144 -mmHg 69.0 116 HCO3- ___23.2__ -mmol/L 22.0 26.0 ABE ___-4.7__ -mmol/L tHb ___12.6__ -g/dL O2Hb ___98.8__ -% COHb ____1.5__ -% 1.5 MetHb ____0.1__ -% FIO2 ___21.0__ -% PEEP ___14.0__ -cmH2O Set_RR 16 -b/min Vt __400.0__ -L Drawn By MD - Date/Time Notified____ 04:17:00 -_ Spontaneous_RR 16 -b/min Oxygen Device 1 VENTILATOR - Notified By MD - Notified Whom RN C.FELECIA - K+ ____5.1__ -mmol/L Justice test N/A -
[2017-04-15 04:31] LABS: BASOPHILS % (AUTO) 0 % (0-3); EOSINOPHILS % (AUTO) 0 % (0-5); MONOCYTES % (AUTO) 2.7 % (4-12); Mean Corpuscular Hemoglobin 30.3 pg (27.0-35.0); Mean Corpuscular Volume 97.1 fL (81-100); Platelet Count 177 bil/L (150-400)
[2017-04-15 04:57] LABS: Magnesium 2.4 mg/dL (1.6-2.6); Phosphorus 3.2 mg/dL (2.5-4.9)
--- NOTE | 2017-04-15 06:46 | PCM.PNMED ---
Subjective Date of Service Apr 15, 2017 Subjective Nursing reports that patient does not tolerate turning. Patient still on Nimbex 3mcgs and Fentanyl 125mcg. When Albuterol was stopped, peak pressures dropped to 38-40. Tinsley drained 450cc of green output overnight. Patient sedated, paralyzed and on ventilator when I was in the room. Patient's was in the room. Exam Vital Signs Vital Sign - Last Date Time Temp Pulse Resp B/P Pulse Ox O2 Delivery O2 Flow Rate FiO2 04/15/17 05:26 36.8 84 16 111/58 98 Mechanical Ventilator 50 04/13/17 20:52 15 Intake and Output 04/14/17 04/14/17 04/15/17 Cumulative From/Thru 15:00 23:00 07:00 04/13/17 20:52 - 04/15/17 06:07 Intake Total 977 ml 2852 ml 2402 ml 7231 ml Output Total 1000 ml 600 ml 1250 ml 2850 ml Balance -23 ml 2252 ml 1152 ml 4381 ml Intake IV Total 977 ml 2852 ml 2402 ml 7231 ml Output Urine Total 950 ml 450 ml 1200 ml 2600 ml Gastric Drainage Total 50 ml 150 ml 50 ml 250 ml # Voids 1 # Bowel Movements 0 0 0 Exam Constitutional: Patient sedated and on ventilation. No acute distress Head: normocephalic and atraumatic Heart: regular rate and rhythm. No lower extremity edema bilaterally Lungs: Patient on ventilator. Inspiratory and expiratory wheezes throughout. No rales or rhonchi. Abdomen: Faint bowel sounds present. Soft. No ascites Skin: Warm, dry. No rash Psych: Unable to assess secondary to sedation. IVs and Medications IV Fluids NS 1L 100ml/hr Medications Reviewed: Medications were reviewed in detail Medications High Risk Meds include: Azithromycin Ceftriaxone Propofol Norepinepherine Fentanyl Lorazepam Lab and Diagnostics Item Value Date Time Red Blood Count 4.13 mil/mm3 L 04/15/17 0350 Mean Corpuscular Volume 97.1 fL 04/15/17 0350 Mean Corpuscular Hemoglobin 30.3 pg 04/15/17 0350 Mean Corpuscular Hemoglobin Concent 31.2 % L 04/15/17 0350 Red Cell Distribution Width 13.5 % 04/15/17 0350 Neutrophils (%) (Auto) 94.0 % H 04/15/17 0350 Lymphocytes (%) (Auto) 3.1 % L 04/15/17349 Monocytes (%) (Auto) 2.7 % L 04/15/17349 Estimat Glomerular Filtration Rate 69 mL/min 04/15/17349 Calcium Level 8.3 mg/dL L 04/15/17349 Magnesium Level 2.4 mg/dL 04/15/17349 Phosphorus Level 3.2 mg/dL 04/15/17349 Total Bilirubin 0.2 mg/dL 04/15/17349 Aspartate Amino Transf (AST/SGOT) 20 U/L 04/15/17349 Alanine Aminotransferase (ALT/SGPT) 16 U/L 04/15/17349 Alkaline Phosphatase 62 U/L 04/15/17349 Total Protein 6.2 g/dL L 04/15/17349 Procalcitonin 0.39 ng/mL H 04/15/17349 Result Diagram: 04/15/1734904/15/17349 Microbiology PCR negative MRSA negative Urine Strep Antigen Negative X-Rays, CTs and MRIs PROCEDURE: X-RAY CHEST ONE VIEW, PORTABLE ([id number]) - Images viewed IMPRESSION: 1. Resolution of patchy opacities seen on the 04/10/17 study which may have reflected pulmonary edema. No acute consolidation. Dictated by: Torres Barrow M.D. on 04/14/2017 at 11:05 Approved by: Torres Barrow M.D. on 04/14/2017 at 11:09 12-lead ECG Sinus Tachycardia with nonspecific intraventricular conduction delay. Assessment & Plan Pt is a 61 year old male with a history of asthma who presents to the ED via EMS in respiratory distress, and was intubated in the ED. Admitted for status asthmaticus. Acute hypercapnic respiratory failure. Present on admission. Resolving. - Initial ABG: pH 6.96, pCO2 105, bicarb 22.5, pO2 405. Secondary to status asthmaticus. - ABG @04:10 pH: 7.2; pCO2 58.7; pO2 144; bicarb 23.2 - Mechanical ventilation with decreased I:E ratio. - Continue propofol and fentanyl gtt for sedation Acute status asthmaticus. Present on admission. - Pt presents with severe asthma exacerbation refractory to beta agonist treatment and BiPAP, intubated on admission. Likely secondary to community acquired pneumonia. Received Mg sulfate in ED. - Continue mechanical ventilation - Duoneb q4h - Albuterol neb q2h PRN - Continue Solu Medrol 80 mg q8h Acute sepsis. Present on admission. - Secondary to CAP. Temp 36, HR 142, RR 40 on admission. - NS @ 100 ml/hr - Treat underlying pneumonia - patient receiving vancomycin, clindamycin, and meropenem. - Trend lactic acid Acute respiratory acidosis. Present on admission. Resolving. - ABG as above. Pt received 1 amp of sodium bicarb. Resolved with mechanical ventilation. - Will repeat ABG in AM. Lactic acidosis, acute. Present on admission. - Lactic acid 2.2 on admission. Most recent 1.9, down from 2.2 on admission. Secondary to infection and respiratory distress. - Trend lactic acid q2h. If AM lactic acid is normalized, stop trending. Community acquired pneumonia, acute. Present on admission. - CXR showed mild patchy bilateral perihilar opacity. - Ceftriaxone 1g IV Q12H - Abx day 1 - azithromycin 500mg IV Q24H - Abx day1 - Strep pneumo and Legionella urine antigens - Sputum and blood cultures pending - MRSA screen negative Hyperglycemia, acute. Present on admission. - Pt has no prior history of diabetes. BG 172 on admission. - A1c ordered. - Recheck BG in AM with CMP - Bowel regimen as needed - Antiemetic as needed - Famotidine for GI prophylaxis Patient is admitted under inpatient status with expected length of stay greater than 2 midnights due to severity of presenting symptoms, risk of adverse event, and complexity of treatment plan. GI Prophylaxis: H2 carlo VTE Prophylaxis: Sub-Q Heparin (Unfractionated) VTE Mechanical Devices: Intermittant Pneumatic CD Resuscitation Status: CPR: Attempt Resuscitation Attending Statement The patient was seen and examined together with Dr. Carter on 04/15/17 and I agree with the history, exam and plan as outlined in the note above. Coleman Carter DO Apr 15, 2017 06:46 April Ramírez DO Apr 18, 2017 17:11
[2017-04-15] MEDS ORDERED: Glucose 40% Oral Gel 15 Gm Tube PO PRN (08:15)
[2017-04-15] MEDS: Famotidine Inj 20 MG in IV Premix 1 EACH IV SCH ×2 (08:15→19:37)
--- NOTE | 2017-04-15 10:30 | NUR ---
NUTRITION FOLLOW-UP: Assess: 61 YO M admitted to CCU for acute respiratory failure with asthma exacerbation secondary to pneumonia. Pt currently intubated. Pt has been NPO X 2 days. Currently requiring nimbex. PMHX: Asthma. DIET: NPO. LABS: K 5.4, Glu 215, Ca 8.3, Alb 3.4, A1C 5.9 MEDICATIONS: Reviewed. Solu-medrol, Fentanyl, nimbex, Propofol @ 18ml/hr providing 475kcal/day GI: No BM noted. SKIN: No issues noted. ANTHROPOMETRICS: Wt: 86.1 kg, BMI 25.7 kg/m2, Admit wt: 82.2 kg. ESTIMATED NEEDS: VENT Calories: 7939-9922 kcal/day (20-25 kcal/kg BW) Protein: 120-145 g/day (1.5-1.8 g/kg BW) NUTRITION DIAGNOSIS: 1) Inadequate oral intake related to decreased ability to consume sufficient energy as evidenced by NPO/VENT status. --PERSISTS INTERVENTION: 1) If pt remains intubated and NPO, recommend start TF of pulmocare at 10ml/hr. Pt is currently on nimbex so recommend keep TF at trophic rate for at least 24hrs to establish tolerance. If TF is tolerated well, recommend advanced TF by 10ml q 12 hrs until reach goal rate of 50ml/hr to provide 1650kcal (2125kcal w/propofol) and 68g pro 2) Adjust goal rate based on daily propofol 3) Once TF at goal rate, recommend add 5 packets of prosource/day to better meet protein needs. 4) If BG levels continue to be high, will consider using Glucerna TF formula MONITOR/EVALUATE: NPO/Vent status, nutrition support, POC, labs, GI/nutrition status. Follow per high nutrition risk guidelines.
[2017-04-15] MEDS: Norepineph 8,000 mCg/250 mL NS 8,000 MCG in IV Premix 1 EACH IV SCH (12:00)
[2017-04-15] MEDS ORDERED: Insulin LISPRO 300 Unit/3 mL Inj SUBQ SCH (12:00)
--- NOTE | 2017-04-15 12:04 | DRSVH ---
PROCEDURE: X-RAY CHEST ONE VIEW, PORTABLE ([id number]) INDICATIONS: intubated TECHNIQUE: One view of the chest was acquired. COMPARISON: [facility], CR, XR CHEST 1VW (PORTABLE), 04/13/2017, 20:25. [facility], CR, XR CHEST 1VW (PORTABLE), 04/14/2017, 10:38. FINDINGS: Surgical changes and devices: ETT tip projects 6.7 cm above the vlad. A right PICC tube tip projec rizwana over the lower SVC. Nasogastric tube tip traverses the GE junction. Lungs and pleura: No pleural effusions or pneumothorax. Lungs are clear. Mediastinum: Mediastinal contours appear normal. Heart size is normal. Bones and chest wall: No suspicious bony lesions. Overlying soft tissues appear unremarkable. IMPRESSION: Support lines and tubes as above. No acute cardiopulmonary disease. Dictated by: Maximiliano Burns [facility] Interpreted: Yair Wyman MD on 04/15/2017 at 10:29 Approved by: Yair Wyman M.D. on 04/15/2017 at 12:01
--- NOTE | 2017-04-15 12:05 | PROG NOTE ---
[address] [address] PROGRESS NOTE PATIENT: PAPO BEVERLY : 1955 MR#: [id number] ADMIT: 04/13/2017 JOB ID: [id number] DATE: 04/15/2017 PROBLEM: Status asthmaticus. SUBJECTIVE: None. OBJECTIVE: Temperature 36.7, pulse 83-93, respiratory rate 16 with ventilator set at 16. Blood pressure 101/50 to 111/58. O2 sat on FiO2 50%, PEEP of 16 is 96%. I and O shows 3.8 L in, 1.6 L out. General appearance sedated heavily on paralytic. Eyes: Conjunctivae are pink. Pupils 1-2 mm. Chest moderately decreased breath sounds bilaterally. Fair air entry both sides. There are mild inspiratory extract expiratory wheezes throughout the right lung as well as the left upper lung field. There is a short inspiratory high-pitched squeaking sound as well as a similar sound on exhalation in the left lower lung field with without the presence of bronchovesicular breath sounds. Heart regular rhythm. Heart tones normal. Abdomen is soft, quiet. Extremities: No pretibial edema. Skin: No rash. LABORATORY DATA: White count of 13,100 with 94 polymorphonuclears, no bands, 3 lymphocytes, 2 monocytes. Hemoglobin at 12.5 slowly decreasing. Platelet count 177,000 relatively stable. Sodium 136, potassium 5.4, chloride 106. CO2 is 20. BUN 19. Creatinine 1.1. Glucose 215, recheck is 157. Calcium is 8.3 with an albumin of 3.4, phosphorus 3.2. Magnesium 2.4. Total bilirubin 0.2 AST 20, ALT 16, alkaline phos 62. Procalcitonin mildly elevated from 0.03-0.39 over 36 hours. Urine for Legionella antigen is negative. Respiratory viral panel by PCR is negative. Nasal swab for MRSA is negative. Urine for Strep antigen is negative. Sputum Gram stain shows rare polys. There is a few mixed pineda. Growing only normal pineda at present. Chest x-ray shows relatively clear lung whitaker. Endotracheal tube is 6.7 cm above the main vlad. Arterial blood gases on an FiO2 of 50%, PEEP of 14, tidal volume of 400, rate of 16 shows a pO2 of 144, pCO2 of 58, pH 7.20. ASSESSMENT: Status asthmaticus. It has become clear that any inhaled medication causes severe bronchospasm with marked increase in peak pressures without much change in plateau pressures. Auto-PEEP is better and in fact, we have been able to raise the tidal volume a bit with only minimal auto-PEEP. Currently PEEP is set at 14, measured maybe 16 or 17. Oxygenation is fine. Moderate to severe respiratory acidemia. PLAN: Will be to continue with IV steroids until the airways stabilize somewhat. Seemed a little more stable today than yesterday. Discussed IV theophylline but decided to pursue the steroids for the moment as we seemed to be making some progress. Potassium is a bit high. Not quite sure why. He is not receiving any potassium containing fluids or medications. Steroid acidosis may be playing a role, though. Will be rechecking his potassium later today. Endotracheal tube is a bit high. Will advance it at about 2 cm. Hopefully, will not result in any severe bronchospasm. Received a fair amount of fluid yesterday bordering on 4 L. Will decrease the fluid regimen. Currently with the IV fluids and drips he is getting about 150 mL an hour and will try to cut down on that if we can. Skyler spent in critical care: 50 minutes MTDD
[2017-04-15] MEDS: cefTRIAXone Inj 1,000 MG in Dextrose 5% Minibag Plus 50 ML IV SCH ×2 (12:08→23:13)
[2017-04-15] MEDS: 0.9% Sodium Chloride 1,000 ML IV SCH ×2 (12:41→17:03)
[2017-04-15] MEDS: fentaNYL 2,500 mCg/250 mL 2,500 MCG in IV Premix 1 EACH IV SCH (13:42)
[2017-04-15] MEDS: LORazepam 100 mg/100 mL NS 100 MG in IV Premix 100 EACH IV SCH ×2 (14:33→15:17)
[2017-04-15] MEDS: Cisatracurium 200,000 mCg/100 mL NS IV SCH ×2 (14:34)
--- NOTE | 2017-04-15 18:12 | NUR ---
P: Respiratory Distress I: Pt tolerating ventilation better today. Keeping pt sedated as much as possible to keep from him having bronchospasms. Nimbex 1.5 mcqs/kg/min. Fentanyl 125mcqs/hr. Propofol down to 25 mcqs/kg/hr. Ativan 1mg/hr. Afebrile. Blood sugars 159-142 and aware and holding insulin at this time. NS 100cc/hr. Train of four now 3:4, was 4:4 with nimbex at 1mcq and pt not tolerating it well. Tinsley 1050cc output. OGT LCS 150cc of thick green fluid. Pt unable to tolerate Q 2 turns and CLRT on . and pt's son's at bedside and was updated by on pt's condition and plan of care. Son's can have information and form on the front of the chart with a code word for telephone information. NSR. E: Guarded, but slightly more stable today then yesterday S: Nimbex on and no restraints needed. Frequent rounding.
[2017-04-15] MEDS: Azithromycin Inj 500 MG in Dextrose 5% w/Vial Mate 250 ML IV SCH (23:42)
[2017-04-16] VITALS (12 sets, daily range): BP systolic 100–120; BP diastolic 54–64; PULSE 53–60; RESP 16; O2SAT 94–97
[2017-04-16] MEDS: Propofol Inj 1,000,000 MCG in IV Premix 1 EACH IV SCH ×5 (00:33→23:57)
[2017-04-16] MEDS: Cisatracurium 200,000 mCg/100 mL NS IV SCH ×8 (00:33→19:43)
[2017-04-16] MEDS: 0.9% Sodium Chloride 1,000 ML IV SCH ×3 (00:34→23:57)
[2017-04-16] MEDS: MethylprednisoLONE Sodium Succinate 62.5 mg/mL 2 mL Inj IVPUSH SCH ×4 (02:00→19:49)
[2017-04-16] MEDS: Chlorhexidine 0.12% 15 mL Oral Solution MT SCH ×6 (03:58→23:57)
--- NOTE | 2017-04-16 04:12 | ABG ---
DateTimeAnalyzed 04:03:24 -_ pH ____7.285 - 7.350 7.450 pCO2 ___55.5__ -mmHg 35.0 45.0 pO2 ___90.6__ -mmHg 69.0 116 HCO3- ___26.3__ -mmol/L 22.0 26.0 ABE ___-0.5__ -mmol/L tHb ___11.7__ -g/dL O2Hb ___96.9__ -% COHb ____1.6__ -% 1.5 MetHb ____0.0__ -% sO2 ___98.5__ -% FIO2 ___40.0__ -% PEEP ___14.0__ -cmH2O Set_RR 16 -b/min Vt __400.0__ -L Drawn By MD - Date/Time Notified____ 04:12:00 -_ Spontaneous_RR 16 -b/min Oxygen Device 1 VENTILATOR - Notified By MD - Notified Whom RN J.COBOS - K+ ____4.9__ -mmol/L tO2 ___16.1__ -Vol% Justice test N/A -
--- NOTE | 2017-04-16 06:11 | NUR ---
Cardiac/Resp Patient stable this shift, remains on vent and ventilating well, BP stable and O2 sats in the upper 90's, HR SB-NSR, Remains on Nimbex, Propofol, Fentanyl and Ativan, no broncospastic coughing at all after suctioning, stable and uneventful shift, tolerating CLRT rotation, 50ml out OGT and 750ml urine output, no distress noted, will continue to monitor, updated yesterday evening, patients 2 sons visiting. Addendum: 04/16/17 at 0617 by LORELEI COBOS RN Amended: Links added.
[2017-04-16] MEDS: Famotidine Inj 20 MG in IV Premix 1 EACH IV SCH ×2 (07:46→19:44)
[2017-04-16] MEDS: Heparin 5,000 Unit/mL Inj SUBQ SCH ×2 (07:46→15:27)
[2017-04-16 08:23] LABS: Mean Corpuscular Hemoglobin 30.9 pg (27.0-35.0); Mean Corpuscular Volume 97.6 fL (81-100)
[2017-04-16 08:24] LABS: BASOPHILS % (AUTO) 0 % (0-3); EOSINOPHILS % (AUTO) 0 % (0-5); MONOCYTES % (AUTO) 3.1 % (4-12); NEUTROPHILS % (AUTO) 94.3 % (40-74); Platelet Count 143 bil/L (150-400)
[2017-04-16] MEDS: fentaNYL 2,500 mCg/250 mL 2,500 MCG in IV Premix 1 EACH IV SCH (09:28)
--- NOTE | 2017-04-16 10:22 | NUR ---
NUTRITION FOLLOW-UP: Assess: 61 YO M admitted to CCU for acute respiratory failure with asthma exacerbation secondary to pneumonia. Pt currently intubated. Pt has been NPO X 3 days. Currently requiring nimbex. Plan is to decrease nimbex today. Received verbal during rounds to start TF. Pt has not had a BM since admit. PMHX: Asthma. DIET: NPO. LABS: Cl 109, Glu 172, Ca 8.3, Alb 3.1 MEDICATIONS: Reviewed. Solu-medrol, Fentanyl, nimbex, Propofol @ 15ml/hr providing 396kcal/day GI: No BM noted. SKIN: No issues noted. ANTHROPOMETRICS: Wt: 87.9 kg, BMI 26.3kg/m2, Admit wt: 82.2 kg. ESTIMATED NEEDS: VENT Calories: 0723-5504 kcal/day (20-25 kcal/kg BW) Protein: 120-145 g/day (1.5-1.8 g/kg BW) NUTRITION DIAGNOSIS: 1) Inadequate oral intake related to decreased ability to consume sufficient energy as evidenced by NPO/VENT status. --PERSISTS INTERVENTION: 1) Recommend start TF of pulmocare at 10ml/hr. If TF is tolerated well, recommend advanced TF by 10ml q 12 hrs until reach goal rate of 50ml/hr to provide 1650kcal (2046kcal w/propofol) and 68g pro ( 100% kcal and 56% pro needs) 2) Adjust goal rate based on daily propofol 3) Once TF at goal rate, recommend add 5 packets of prosource/day to better meet protein needs. 4) If BG levels continue to be high, will consider using Glucerna TF formula MONITOR/EVALUATE: NPO/Vent status, TF start/suzan, BM, POC, labs, GI/nutrition status. Follow per high nutrition risk guidelines. Addendum: 04/17/17 at [address] TF on hold due to respiratory status. Recommend re-start TF when medically appropriate. Will continue to monitor per high nutrition risk guidelines.
[2017-04-16] MEDS ORDERED: Albuterol HFA 60 Puff 8 Gm Inhaler INHALATION ONE (10:25)
[2017-04-16] MEDS: Norepineph 8,000 mCg/250 mL NS 8,000 MCG in IV Premix 1 EACH IV SCH (12:00)
--- NOTE | 2017-04-16 12:16 | PROG NOTE ---
[address] [address] PROGRESS NOTE PATIENT: PAPO BEVERLY : 1955 MR#: [id number] ADMIT: 04/13/2017 JOB ID: [id number] DATE: 04/16/2017 PULMONARY CRITICAL CARE FOLLOWUP NOTE: PROBLEM: Status asthmaticus. SUBJECTIVE: None. OBJECTIVE: Temperature 36.7. Pulse 57-62. Respiratory rate 16. Blood pressure 115/56. O2 sat on FiO2 40%, PEEP of 14, measured at 17 is 97%. I and O shows 3.9 L in, 2.4 L out. General appearance: Sedated paralyzed on the ventilator. Eyes: Pupils pinpoint. Chest: Moderately to markedly decreased breath sounds. Diffuse inspiratory and expiratory wheezes. With a tidal volume of 400, PEEP of 14 though measured at 17, peak inspiratory pressure 36, plateau 24. Heart: Regular rhythm. Heart tones normal. Abdomen: Soft. Extremities: No pretibial edema. LABORATORY DATA: Shows a white count of 9100 with 94 polymorphonuclears, two lymphocytes, three monocytes. Hemoglobin 11.8. Platelet count 143,000. This is slowly decreasing. Sodium 141, potassium 5, chloride 109, CO2 is 22, BUN 27. Creatinine 0.8, improved from a value of 1.15 yesterday. Calcium 8.3, with an albumin of 3.1. Procalcitonin 0.22, down from 0.4. Total bilirubin, transaminases, and alkaline phosphatase normal. Chest x-ray shows no particular abnormalities. Endotracheal tube remains 6.7 cm above the vlad in spite of advancing it 2 cm yesterday. Lungs are clear. Arterial blood gases on FiO2 of 0.4, tidal volume of 400, PEEP of 14 (measured at 17), rate of 16, shows a pO2 of 90, pCO2 of 55, pH 7.28. After discussion with the RT, pharmacy, medical teams, and the family, it was decided to try one puff of albuterol via an inhaler. This was given. Within minutes peak pressure had dropped to 33. Currently about an hour after a one puff the peak inspiratory pressure is 31. Plateau 22. PEEP is 14 measured at 14. ASSESSMENT: Status asthmaticus. Doing better. Still with auto PEEP and decreased breath sounds indicative of significant bronchospasm. Also has quite a large space ventilation with a minute ventilation of a bit over 6 L with a CO2 of 58. Oxygenation somewhat improved. Did tolerate the albuterol inhaler. Will continue this modality, increasing as he tolerates it. Start decreasing the paralytic. 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 This is day four. Can start trophic tube feedings. No evidence of pulmonary infection. Can discontinue the antibiotics. indicates that the patient's nebulizer that is usually crystal clean was rather filthy when she saw it. She is not sure whether he was using it in this condition but at the time of the paramedics arrival on Friday the mouthpiece was quite dirty. This might have lead to a respiratory tract infection precipitating the problem. One would also wonder about the sudden change in behavior if normally the nebulizer is pristine. PLAN: 1. Will give albuterol on a p.r.n. basis for the moment. 2. Will discontinue cisatracurium later today. 3. Discontinue antibiotics. 4. Pulmocare via OG tube at 10 mL an hour with water flushes 20 mL q.4 h. Discussed the overall findings and plan with the patient's family. TIME: Time spent so far in critical care 60 minutes.
--- NOTE | 2017-04-16 15:45 | NUR ---
Social Work Note: Initial Assessment/Multidisciplinary Rounds Data& Assessment: EMR Reviewed. Pt was discussed in AM rounds today, per MD pt is not medically ready for discharge at this time. Pt remains on the vent. SW met with pt at bedside to collect initial assessment information, SW role explained and discharge planning checklist provided. Cl Briseno is a 61 year old male admitted on 04/13/2017 for acute respiratory failure and atypical pneumonia. Pt required intubation. Pt is uninsured, pt working with [employer] to see if pt might qualify for Medicaid, SW provided pt with financial examiner application. Pt PCP is Nadya MERINO and normally uses a nebulizer and inhalers for his asthma at baseline. Pt otherwise is independent at baseline and does not require DME for ambulation. 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 Pt lives in [place] with his spouse and drives normally. Pt does not have HH or SNF hx. Pt does not have LTC insurance or VA benefits. Pt does not have DPOA/AD paperwork. Pt very distressed over pt current condition. SW to follow up with pt regarding DPOA/AD paperwork if pt condition improves. Pt denies any needs at this time. SW to continue to follow for pt prognosis, MD orders and if any needs for pt or pt family should arise. Plan: Pt remains on the vent. Prognosis is unclear at this time. Pt denies any needs at this time. SW to continue to follow for pt medial progression and if any needs for pt or pt family should arise. ELEAZAR Dupree Addendum: 04/16/17 at 1557 by VAN COLEMAN Amended: Links added.
--- NOTE | 2017-04-16 16:17 | NUR ---
Paralytics, Sedation.. Has done well on vent and tolerated Albuterol doses without any reactions. Has been able to suzan having peep decreased and no desats noted. Has had nimbex weaned to off as of 1609 and has had Ativan weaned to off also. Pt remains sedate with no distress noted. Will start tube feeds now that pt is off paralytics. and sons have been at the bedside and are updated on status and plan of care.
--- NOTE | 2017-04-16 17:02 | NUR ---
Ventilation.. noted to have increasing peak pressures off paralytics. Dr Brooks and residents at the bedside. Pt had Nimbex restarted and Ativan gtt resumed and peak pressures are decreasing after these measures and an Albuterol dose. Tube feeds held per MD order.
--- NOTE | 2017-04-16 17:04 | PCM.PNMED ---
Subjective Date of Service Apr 16, 2017 Subjective Nursing reports no acute events overnight. Resting comfortably in bed on ventilator. Remains on Nimbex, Propofol, Fentanyl and Ativan for sedation and paralysis. Patient resting comfortably. Ventilator settings include FiO2 40%, PEEP 14, Rate of 16 and TV of 400. Exam Vital Signs Vital Sign - Last Date Time Temp Pulse Resp B/P Pulse Ox O2 Delivery O2 Flow Rate FiO2 04/16/17 16:00 36.9 56 16 120/59 97 Mechanical Ventilator 40 04/13/17 20:52 15 Intake and Output 04/15/17 04/15/17 04/16/17 Cumulative From/Thru 15:00 23:00 07:00 04/13/17 20:52 - 04/16/17 05:56 Intake Total 1566 ml 1940 ml 46146 ml Output Total 1200 ml 800 ml 4850 ml Balance 366 ml 1140 ml 5887 ml Intake IV Total 1566 ml 1940 ml 82696 ml Output Urine Total 1050 ml 750 ml 4400 ml Gastric Drainage Total 150 ml 50 ml 450 ml # Voids 1 # Bowel Movements 0 0 Exam Constitutional: Sedated, In no acute distress Head: Normocephalic and atraumatic Eyes: no scleral icterus, pink conjunctiva Heart: Regular rate (60bpm) regular rhythm. No murmurs. No peripheral edema Lungs: Ventilated. Diffuse expiratory wheeze throughout improved from yesterday. No rales or rhonchi. ABD: Soft. Bowel sounds present throughout. Musculoskeletal. Appropriate muscle tone. No gross deformity. Skin: warm, dry, no rashes.. Psych: unable to assess IVs and Medications IV Fluids 2L NS given in the last 24 hours Medications Reviewed: Medications were reviewed in detail Medications Fentanyl Propofol Heparin Lorazepam Norepinephrine Lab and Diagnostics Item Value Date Time Red Blood Count 3.82 mil/mm3 L 04/16/17636 Mean Corpuscular Volume 97.6 fL 04/16/17636 Mean Corpuscular Hemoglobin 30.9 pg 04/16/17636 Mean Corpuscular Hemoglobin Concent 31.6 % L 04/16/17636 Red Cell Distribution Width 13.7 % 04/16/17636 Neutrophils (%) (Auto) 94.3 % H 04/16/17636 Lymphocytes (%) (Auto) 2.5 % L 7/26/17 0637 Monocytes (%) (Auto) 3.1 % L 04/16/17 06 Eosinophils (%) (Auto) 0 % 04/16/17636 Basophils (%) (Auto) 0 % 04/16/17 06 Estimat Glomerular Filtration Rate 103 mL/min 04/16/17 06 Lactic Acid Level 1.5 mmol/L 04/16/17636 Calcium Level 8.3 mg/dL L 04/16/17636 Total Bilirubin 0.2 mg/dL 04/16/17636 Aspartate Amino Transf (AST/SGOT) 11 U/L 04/16/17 06 Alanine Aminotransferase (ALT/SGPT) 11 U/L 04/16/17 06 Alkaline Phosphatase 50 U/L 04/16/17636 Total Protein 5.6 g/dL L 04/16/17 06 Albumin 3.1 g/dL L 04/16/17 06 Procalcitonin 0.22 ng/mL H 04/16/17636 Result Diagram: 04/16/1763604/16/17636 Microbiology PCR negative MRSA negative Urine Strep Antigen Negative X-Rays, CTs and MRIs PROCEDURE: X-RAY CHEST ONE VIEW, PORTABLE ([id number]) - Images viewed IMPRESSION: 1. Resolution of patchy opacities seen on the 04/10/17 study which may have reflected pulmonary edema. No acute consolidation. Dictated by: Torres Barrow M.D. on 04/14/2017 at 11:05 Approved by: Torres Barrow M.D. on 04/14/2017 at 11:09 12-lead ECG Sinus Tachycardia with nonspecific intraventricular conduction delay. Assessment & Plan Pt is a 61 year old male with a history of asthma who presents to the ED via EMS in respiratory distress, and was intubated in the ED. Admitted for status asthmaticus. Acute hypercapnic respiratory failure. Present on admission. Resolving. - Initial ABG: pH 6.96, pCO2 105, bicarb 22.5, pO2 405. Secondary to status asthmaticus. - ABG @04:03 (04/16) pH 7.285, pCO2 55.5, pO2 90.6, bicarb 26.3 - Mechanical ventilation with decreased I:E ratio. - Continue propofol and fentanyl gtt for sedation Acute status asthmaticus. Present on admission. (Active) - Pt presents with severe asthma exacerbation refractory to beta agonist treatment and BiPAP, intubated on admission. Likely secondary to community acquired pneumonia. Received Mg sulfate in ED. - Continue mechanical ventilation - Duoneb q4h currently held as this causes bronchospasms - Albuterol inhaler 2 puffs q4h - Start Aminophylline - Continue Solu Medrol 125 mg q6h Acute sepsis. Present on admission. (Resolved) - Secondary to CAP. Temp 36, HR 142, RR 40 on admission. - Discontinued NS @ 100 ml/hr - Treat underlying pneumonia - patient received Ceftrioxone and Azithromycin now discontinued - Trend lactic acid Acute respiratory acidosis. Present on admission. Resolving. - ABG as above. Resolved with mechanical ventilation. - Will continue to monitor Lactic acidosis, acute. Present on admission. (Resolved) - Lactic acid 2.2 on admission. Most recent 1.5, down from 1.9 on admission. Secondary to infection and respiratory distress. - Continue to monitor as needed or if patient spikes a temp. Community acquired pneumonia, acute. Present on admission. (Resolved) - CXR showed mild patchy bilateral perihilar opacity. - Ceftriaxone 1g IV Q12H discontinued - azithromycin 500mg IV Q24H discontinued - Strep pneumo and Legionella urine antigens - Sputum and blood cultures pending - MRSA screen negative Hyperglycemia, acute. Present on admission. - Pt has no prior history of diabetes. BG 172 on admission. - Increase Lantus 10U - A1c 5.7 - Recheck BG in AM with CMP - Bowel regimen as needed - Antiemetic as needed - Famotidine for GI prophylaxis Patient is still showing signs of severe status asthmaticus. Patient has shown some minimal improvement however still remains very tenuous. GI Prophylaxis: H2 carlo VTE Prophylaxis: Sub-Q Heparin (Unfractionated) VTE Mechanical Devices: Intermittant Pneumatic CD Resuscitation Status: CPR: Attempt Resuscitation Attending Statement The patient was seen and examined together with Dr. Carter on 04/16/2017 and I have added additional information to the note above. Coleman Carter DO Apr 16, 2017 17:04 April Ramírez DO Apr 17, 2017 12:46
--- NOTE | 2017-04-16 17:48 | ABG ---
DateTimeAnalyzed 17:41:00 -_ pH ____7.228 - pCO2 ___66.4__ -mmHg pO2 ___53.0__ -mmHg HCO3- ___26.7__ -mmol/L ABE ___-1.7__ -mmol/L tHb ___12.3__ -g/dL O2Hb ___82.7__ -% COHb ____0.8__ -% MetHb ____1.1__ -% sO2 ___84.3__ -% FIO2 ___40.0__ -% PEEP ___15.0__ -cmH2O Set_RR ___15.0__ -b/min Vt __360.0__ -L Drawn By as - Date/Time Notified____ 17:47:00 -_ Spontaneous_RR ___15.0__ -b/min Oxygen Device 1 VENTILATOR - Notified By ams - Notified Whom Omaira Paresh, RN -___ B 759 -mmHg tO2 ___14.3__ -Vol% Justice test N/A -
[2017-04-16] MEDS ORDERED: Insulin GLARgine 100 Unit/mL Syringe SUBQ SCH ×2 (21:00)
[2017-04-16] MEDS: LORazepam 100 mg/100 mL NS 100 MG in IV Premix 100 EACH IV SCH (23:58)
[2017-04-17] VITALS (12 sets, daily range): BP systolic 115–156; BP diastolic 59–88; PULSE 54–89; RESP 14–16; O2SAT 92–97
[2017-04-17] MEDS: Heparin 5,000 Unit/mL Inj SUBQ SCH ×3 (00:10→17:25)
[2017-04-17] MEDS: MethylprednisoLONE Sodium Succinate 62.5 mg/mL 2 mL Inj IVPUSH SCH ×4 (02:22→20:16)
[2017-04-17] MEDS: Chlorhexidine 0.12% 15 mL Oral Solution MT SCH ×5 (04:13→20:14)
[2017-04-17 05:26] LABS: Mean Corpuscular Hemoglobin 30.2 pg (27.0-35.0); Mean Corpuscular Volume 97.1 fL (81-100)
--- NOTE | 2017-04-17 05:35 | NUR ---
Resp/Cardiac/Ventilator Patient remains on mechanical ventilator. Paralyzed on Nimbex and sedated on Propofol and Fentanyl, patient not tolerating care and peak pressures increased to 48 when partial bath done, increased Nimbex to 2 and then down to 1.75, BIS 30-40 and TOF 2/4, patients sats decreased and FIO2 increased to 50% for 2 hours, peak pressures finally decreased to the high 30's after an hour or so, 200ml out OGT on LCS, 850ml urine output, Ativan off this shift, will continue to monitor, no distress noted this AM. Addendum: 04/17/17 at 0544 by LORELEI COBOS RN Amended: Links added.
[2017-04-17] MEDS ORDERED: Insulin GLARgine 100 Unit/mL Syringe SUBQ ONE (07:05)
[2017-04-17] MEDS: Propofol Inj 1,000,000 MCG in IV Premix 1 EACH IV SCH (07:34)
[2017-04-17] MEDS: Famotidine Inj 20 MG in IV Premix 1 EACH IV SCH ×2 (07:35→20:13)
[2017-04-17] MEDS: fentaNYL 2,500 mCg/250 mL 2,500 MCG in IV Premix 1 EACH IV SCH (07:35)
[2017-04-17] MEDS: 0.9% Sodium Chloride 1,000 ML IV SCH ×2 (07:55→20:10)
[2017-04-17] MEDS ORDERED: LORazepam 100 mg/100 mL NS 100 MG in IV Premix 100 EACH IV SCH (08:29)
[2017-04-17] MEDS ORDERED: Furosemide 10 mg/mL 2 mL Inj IVPUSH ONE (08:30)
[2017-04-17] MEDS ORDERED: Glucose 40% Oral Gel 15 Gm Tube PO PRN (08:35)
--- NOTE | 2017-04-17 09:45 | ABG ---
DateTimeAnalyzed 09:39:00 -_ pH ____7.288 - pCO2 ___59.0__ -mmHg pO2 ___52.2__ -mmHg HCO3- ___27.4__ -mmol/L ABE ____0.2__ -mmol/L tHb ___12.2__ -g/dL O2Hb ___82.3__ -% COHb ____1.0__ -% MetHb ____0.8__ -% sO2 ___83.8__ -% FIO2 ___40.0__ -% PEEP ___15.0__ -cmH2O Set_RR ___16.0__ -b/min Vt __400.0__ -L Drawn By as - Date/Time Notified____ 09:44:00 -_ Spontaneous_RR ___16.0__ -b/min Oxygen Device 1 VENTILATOR - Notified By ams - Notified Whom dr kendregan - B 761 -mmHg tO2 ___14.1__ -Vol% Justice test N/A -
--- NOTE | 2017-04-17 10:44 | DRSVH ---
PROCEDURE: X-RAY CHEST ONE VIEW, PORTABLE ([id number]) INDICATIONS: intubated, asthma exacerbation TECHNIQUE: One view of the chest was acquired. COMPARISON: [facility], CR, XR CHEST 1VW (PORTABLE), 04/15/2017, 9:02. FINDINGS: Surgical changes and devices: Endotracheal tube, right PICC line and enteric tube are unchanged Lungs and pleura: No pleural effusions or pneumothorax. There is mild improvement in central airway thickening and diffuse/hazy groundglass opacities since 04/15/17. No new focal consolidation is seen Mediastinum: Mediastinal contours appear normal. Heart size is normal. Bones and chest wall: No suspicious bony lesions. Overlying soft tissues appear unremarkable. IMPRESSION: Stable support equipment. Improved mild diffuse ground glass opacities since 04/15/17 suggesting improved atelectasis/aspiration , or pulmonary edema. Please correlate clinically. No new focal consolidation. Dictated by: Jose Aparicio MD. on 04/17/2017 at 10:26 Approved by: Jose Aparicio M.D. on 04/17/2017 at 10:42
[2017-04-17] MEDS ORDERED: DEXTROSE 5% IV ONE (11:35)
[2017-04-17] MEDS ORDERED: AMINOPHYLLINE IV ONE (11:35)
[2017-04-17] MEDS ORDERED: Insulin LISPRO 300 Unit/3 mL Inj SUBQ SCH (12:00)
[2017-04-17] MEDS: Norepineph 8,000 mCg/250 mL NS 8,000 MCG in IV Premix 1 EACH IV SCH (12:00)
[2017-04-17] MEDS: DEXTROSE 5% IV SCH (12:07)
[2017-04-17] MEDS: AMINOPHYLLINE IV SCH (12:07)
[2017-04-17] MEDS ORDERED: Albuterol HFA 60 Puff 8 Gm Inhaler INHALATION SCH (12:30)
[2017-04-17] MEDS: Insulin Human REGular 300 Unit/3 mL Inj SUBQ SCH ×2 (13:37→20:25)
[2017-04-17] MEDS: Albuterol HFA 60 Puff 8 Gm Inhaler INHALATION SCH ×3 (15:34→23:35)
--- NOTE | 2017-04-17 16:24 | PROG NOTE ---
[address] [address] PROGRESS NOTE PATIENT: PAPO BEVERLY : 1955 MR#: [id number] ADMIT: 04/13/2017 JOB ID: [id number] DATE: 04/17/2017 PULMONARY CRITICAL CARE FOLLOWUP NOTE: PROBLEM: Status asthmaticus. SUBJECTIVE: None. OBJECTIVE: Temperature 37, pulse 51, respiratory rate 16, blood pressure 124/70, O2 saturation on FiO2 of 40% PEEP of 14 is 97 (PEEP set at 14, measured at 17). General appearance: Sedated, on paralytics. Eyes: Conjunctivae are pink. Nose and throat could not be examined. Chest: Markedly decreased breath sounds bilaterally. There are scattered short inspiratory and expiratory wheezes throughout both lung whitaker. Peak inspiratory pressure 44, plateau 24. PEEP is set at 14, measured at 17. Heart: Regular rhythm. Heart tones normal. Abdomen: Soft. A few bowel tones noted. Extremities: No pretibial edema. LABORATORY DATA: Shows a white count of 8,800 without a differential. Hemoglobin is stable at 12.4. Platelet count stable at 146,000. Sodium 143, potassium 5.4, chloride 109, CO2 is 27, BUN 34, creatinine 0.7, calcium 8.4. Albumin 3.3. Total bilirubin 0.2, AST 9, ALT 10, alkaline phosphatase 49. Chest x-ray shows slight decrease in airway thickening and decrease in ill-defined multifocal pulmonary opacities. The patient was switched from propofol to Ativan, as Ativan seemed to work better for him. Paralysis was continued. He was given 20 mg of IV Lasix. Subsequently arterial blood gases were obtained. A mixed venous gas showed a pH of 7.28, pCO2 of 59, O2 sat of 82.3% on FiO2 of 400, rate of 16, PEEP of 15, FiO2 of 0.4. Subsequently was given 2 puffs of albuterol which he tolerated well with peak pressures falling, and actually were falling with the institution of Ativan. Subsequently started on a theophylline drip. Later in the afternoon, as he tolerated the 2 puffs of albuterol well, he was given 4 puffs of albuterol which again he tolerated well. With the discontinuation of the propofol and institution of Ativan his heart rate christ from 51 to 87. Blood pressure christ from 124/70 to 156/83. With the Lasix he diuresed to approximately 2 L. ASSESSMENT: Status asthmaticus. Doing better. Currently receiving high-dose steroids and, along with the paralytics, I am sure we are going to have problems with critical illness myopathy/neuropathy. However, this was the only way to treat his asthma. Now it seems that we are able to use inhaled bronchodilators, not nebulized bronchodilators however. Also have him on aminophylline. Unfortunately theophylline levels are a send out and we may not have access to levels. We will therefore check a level at about 15 hours after start and see if we can get a level in any kind of reasonable time. With the diuresis the patients potassium dropped from 5.4 to 4.4 as well. PLAN: 1. Albuterol 4 puffs via inhaler q.4 hours. 2. Aminophylline infusion. 3. Ativan infusion. 4. Continue IV steroids. TIME: Time spent in critical care 70 minutes.
--- NOTE | 2017-04-17 16:47 | PCM.PNMED ---
Subjective Date of Service Apr 17, 2017 Subjective Nursing reports that patient is still on Nimbex, propofol, and Fentanyl. Not tolerating movement. Otherwise no acute events overnight. Patient sedated and paralyzed. Patient on mechanical ventilation with FiO2 40% , PEEP 15, Rate 16, TV 400. No changes from yesterday. ROS unable to be completed due sedation. Exam Vital Signs Vital Sign - Last Date Time Temp Pulse Resp B/P Pulse Ox O2 Delivery O2 Flow Rate FiO2 04/17/17 12:30 37.0 89 14 144/88 96 Mechanical Ventilator 40 04/13/17 20:52 15 Intake and Output 04/16/17 04/16/17 04/17/17 Cumulative From/Thru 15:00 23:00 07:00 04/13/17 20:52 - 04/17/17 04:23 Intake Total 1627 ml 1445 ml 60152 ml Output Total 875 ml 900 ml 6625 ml Balance 752 ml 545 ml 7184 ml Intake IV Total 1627 ml 1445 ml 93907 ml Output Urine Total 825 ml 700 ml 5925 ml Gastric Drainage Total 50 ml 200 ml 700 ml # Voids 1 # Bowel Movements 0 0 Exam Constitutional: Sedated, paralyzed, and on mechanical ventilation Head: normocephalic and atraumatic Eyes: no scleral icterus, pink conjunctiva Heart: Bradycardic on exam. Regular rhythm. No peripheral edema. 3/4 Radial pulses bilaterally. Lungs: Diffuse wheezes throughout, improved from yesterday's exam, No rales or rhonchi. ABD: Soft. Bowel sounds present throughout. Musculoskeletal: Appropriate muscle tone. Skin: warm, Dry, No rashes Psych: Unable to assess, patient sedated. IVs and Medications IV Fluids 3L NS given in the last 24 hours. Medications Reviewed: Medications were reviewed in detail Medications Propofol Nimbex Norepinephrine Lorazepam Cisatracurium Lab and Diagnostics Item Value Date Time Sodium Level 143 mEq/L 04/17/17514 Potassium Level 5.4 mEq/L H 04/17/17514 Chloride Level 109 mEq/L H 04/17/17 05 Carbon Dioxide Level 27 mmol/L 04/17/17514 Blood Urea Nitrogen 34 mg/dL H 04/17/17514 Creatinine 0.75 mg/dL L 04/17/17514 Glucose Level 176 mg/dL H 04/17/17514 Item Value Date Time Red Blood Count 4.11 mil/mm3 L 04/17/17514 Mean Corpuscular Volume 97.1 fL 04/17/17514 Mean Corpuscular Hemoglobin 30.2 pg 04/17/17514 Mean Corpuscular Hemoglobin Concent 31.1 % L 04/17/17514 Red Cell Distribution Width 13.4 % 04/17/17514 Platelet Count 146 melissa/L L 04/17/17514 Estimat Glomerular Filtration Rate 113 mL/min 04/17/17514 Calcium Level 8.4 mg/dL L 04/17/17514 Total Bilirubin 0.2 mg/dL 04/17/17514 Aspartate Amino Transf (AST/SGOT) 9 U/L 04/17/17514 Alanine Aminotransferase (ALT/SGPT) 10 U/L 04/17/17514 Alkaline Phosphatase 49 U/L 04/17/17514 Total Protein 5.4 g/dL L 04/17/17514 Albumin 3.3 g/dL L 04/17/17514 Result Diagram: 04/17/1751404/17/17 1340 Microbiology PCR negative MRSA negative Urine Strep Antigen Negative X-Rays, CTs and MRIs PROCEDURE: X-RAY CHEST ONE VIEW, PORTABLE ([id number]) - Images viewed IMPRESSION: 1. Resolution of patchy opacities seen on the 04/10/17 study which may have reflected pulmonary edema. No acute consolidation. Dictated by: Torres Barrow M.D. on 04/14/2017 at 11:05 Approved by: Torres Barrow M.D. on 04/14/2017 at 11:09 12-lead ECG Sinus Tachycardia with nonspecific intraventricular conduction delay. Assessment & Plan Pt is a 61 year old male with a history of asthma who presents to the ED via EMS in respiratory distress, and was intubated in the ED. Admitted for status asthmaticus. Acute hypercapnic respiratory failure. Present on admission. Resolving. - Initial ABG: pH 6.96, pCO2 105, bicarb 22.5, pO2 405. Secondary to status asthmaticus. - ABG @09:39 (04/17) pH 7.2, pCO2 59, pO2 52.2, bicarb 27.4 - Mechanical ventilation with decreased I:E ratio. FiO2: 40%, PEEP 15, Rate 16 , TV 400 - Continue propofol and fentanyl gtt for sedation Acute status asthmaticus. Present on admission. Active - Pt presents with severe asthma exacerbation refractory to beta agonist treatment and BiPAP, intubated on admission. Likely secondary to community acquired pneumonia. Received Mg sulfate in ED. - Continue mechanical ventilation - Duoneb q4h currently held as this causes bronchospasms - Albuterol inhaler 2 puffs q4h - Continue Aminophylline - Continue Solu Medrol 125 mg q6h Acute respiratory acidosis. Present on admission. Active - ABG as above. Likely secondary to asthma as above. - Will continue to monitor Acute sepsis. Present on admission. Resolved - Secondary to CAP. Temp 36, HR 142, RR 40 on admission. - NS @ 100 ml/hr - Treat underlying pneumonia - patient received Ceftrioxone and Azithromycin now discontinued - Trend lactic acid Lactic acidosis, acute. Present on admission. Resolved - Lactic acid 2.2 on admission. Most recent 1.5 - Continue to monitor as needed or if patient spikes a temp. Community acquired pneumonia, acute. Present on admission. Resolved - CXR showed mild patchy bilateral perihilar opacity. - Ceftriaxone 1g IV Q12H discontinued - azithromycin 500mg IV Q24H discontinued - Strep pneumo and Legionella urine antigens negative - Sputum and blood cultures no growth after 2 days - MRSA screen negative Hyperglycemia, acute. Present on admission. - Pt has no prior history of diabetes. BG 172 on admission. - Increase Lantus 10U QHS - A1c 5.7 - Recheck BG in AM with CMP Diet: - TPN started 04/17 - Bowel regimen as needed - Antiemetic as needed - Famotidine for GI prophylaxis Disposition: Patient is still showing signs of severe status asthmaticus. We have started TPN therapy. Length of stay is uncertain, patient remains in serious medical condition, and requires continued mechanical ventilation with no definitive end date in sight. GI Prophylaxis: H2 carlo VTE Prophylaxis: Sub-Q Heparin (Unfractionated) VTE Mechanical Devices: Intermittant Pneumatic CD Resuscitation Status: CPR: Attempt Resuscitation Attending Statement The patient was seen and examined together with Dr. Carter on 04/17/17 and I have added additional information to the note above. Coleman Carter DO Apr 17, 2017 16:46 April Ramírez DO Apr 17, 2017 20:49
--- NOTE | 2017-04-17 17:50 | NUR ---
P: Respiratory Distress I: Pt remains on Ventilator with peep of 14 with sats stable at this time. Albuterol puffs started and tolerating it well. BIS at one point up to 51 and pt moving just slightly. Train of 4 1:4. Nimbex gtt 1.5mcqs/kg/min. Fentanyl 125mcqs/hr and Ativan at 3mg/hr. NS now TKO. Lasix 20 mg IV given and Tinsley output 2010cc. OGT LCS with 250cc output. Theophylline gtt started with bolus and 20cc/hr. Level ordered fro tomorrow. Afebrile. Pt does not tolerate turning or movement and CLRT on to assist with skin care. NSR. BP higher since propofol dc'd. BIS 39-51. updated on plan of care and pt's condition. E: Slightly Improved. S: Frequent rounding. No restraints needed due to Nimbex.
[2017-04-17] MEDS: Cisatracurium 200,000 mCg/100 mL NS IV SCH ×2 (20:14)
[2017-04-17] MEDS ORDERED: Insulin GLARgine 100 Unit/mL Syringe SUBQ SCH ×2 (21:00)
[2017-04-18] VITALS (12 sets, daily range): BP systolic 135–156; BP diastolic 78–88; PULSE 80–93; RESP 16–22; O2SAT 93–97
[2017-04-18] MEDS: Chlorhexidine 0.12% 15 mL Oral Solution MT SCH ×6 (00:01→19:59)
[2017-04-18] MEDS: fentaNYL 2,500 mCg/250 mL 2,500 MCG in IV Premix 1 EACH IV SCH ×2 (01:38→18:38)
[2017-04-18] MEDS: MethylprednisoLONE Sodium Succinate 62.5 mg/mL 2 mL Inj IVPUSH SCH ×3 (02:46→19:59)
[2017-04-18] MEDS: Insulin Human REGular 300 Unit/3 mL Inj SUBQ SCH ×4 (02:48→20:01)
[2017-04-18 02:54] LABS: Mean Corpuscular Volume 94.5 fL (81-100)
[2017-04-18] MEDS: Albuterol HFA 60 Puff 8 Gm Inhaler INHALATION SCH ×7 (03:57→20:55)
--- NOTE | 2017-04-18 06:05 | NUR ---
Resp/Neuro/Cardiac Patient remains intubated and on mechanical vent, did very well this shift and tolerated being titrated off Nimbex, Nimbex turned off at 0122 and restraints reapplied, Ativan titrated down from 3mg/hr to 1mg/hr, and Fentanyl now at 100mcg/hr, peak pressures on vent are dwom from the mid 30's to 27 at this time, PEEP at 12 this AM patient tries to open eyes to voice and moves hands a little, BIS 74 at this time, resting calm and no anxiety noted, riding the vent at 16 and HR NSR 80's, SBP stable and averaging in the 140-150's, uneventful shift, updated at 2355 last night and stated she will be in early this AM, will continue to monitor. No distress noted. Addendum: 04/18/17 at 0611 by LORELEI COBOS RN Amended: Links added.
[2017-04-18] MEDS ORDERED: Furosemide 10 mg/mL 2 mL Inj IVPUSH ONE (07:20)
[2017-04-18] MEDS: Famotidine Inj 20 MG in IV Premix 1 EACH IV SCH ×2 (08:13→19:59)
[2017-04-18] MEDS: Heparin 5,000 Unit/mL Inj SUBQ SCH ×3 (08:16→16:05)
[2017-04-18] MEDS: 0.9% Sodium Chloride 1,000 ML IV SCH ×2 (08:27→16:00)
[2017-04-18] MEDS: Cisatracurium 200,000 mCg/100 mL NS IV SCH ×4 (09:53→23:46)
[2017-04-18] MEDS ORDERED: LORAZEPAM IV PRN (10:16)
[2017-04-18] MEDS ORDERED: SODIUM CHLORIDE PHA MIX 0.9% IV PRN (10:16)
[2017-04-18] MEDS: Norepineph 8,000 mCg/250 mL NS 8,000 MCG in IV Premix 1 EACH IV SCH (12:00)
[2017-04-18] MEDS: AMINOPHYLLINE IV SCH (12:27)
[2017-04-18] MEDS: DEXTROSE 5% IV SCH (12:27)
--- NOTE | 2017-04-18 13:56 | PCM.PNMED ---
Subjective Date of Service Apr 18, 2017 Subjective Nursing reports that patient had no acute events overnight . Titrating off of Nimbex, and off at 01:22. Restraints have been reapplied for patient safety. Ativan titrated from 3mg/hr to 1mg/hr, Fentanyl now at 100mcg/hr. Patient has been opening eyes and wiggling fingers. Patient seen and examined laying in bed with mechanical ventilation. Will open eyes spontaneously. Patient continued on mechanical ventilation. ROS unable to be complete due to mechanical ventilation. Exam Vital Signs Vital Sign - Last Date Time Temp Pulse Resp B/P Pulse Ox O2 Delivery O2 Flow Rate FiO2 04/18/17 12:05 Ventilator 04/18/17 12:05 37.2 92 18 138/83 93 40 04/13/17 20:52 15 Intake and Output 04/17/17 04/17/17 04/18/17 Cumulative From/Thru 15:00 23:00 07:00 04/13/17 20:52 - 04/18/17 06:01 Intake Total 1012 ml 677 ml 43279 ml Output Total 2300 ml 1100 ml 81334 ml Balance -1288 ml -423 ml 5473 ml Intake Oral 0 ml 0 ml IV Total 1012 ml 677 ml 45138 ml Output Urine Total 2050 ml 1000 ml 8975 ml Gastric Drainage Total 250 ml 100 ml 1050 ml # Voids 1 # Bowel Movements 0 0 Exam Constitutional: Opens eyes to voice. Ventilated. In no acute distress. Head: normocephalic and atraumatic Eyes: no scleral icterus, pink conjunctiva Heart: regular rate and rhythm. no peripheral edema. Lungs: Mechanically ventillated. Wheezing throughout, improved from yesterday' s exam. No rales or rhonchi. ABD: soft. Bowel sounds present throughout. Musculoskeletal: Appropriate muscle tone. Skin. Warm, dry. No rash Psych: unable to assess. IVs and Medications IV Fluids 1L NS given in the last 24 hours. Medications Reviewed: Medications were reviewed in detail Medications High Risk medications include: Propofol Fentanyl Cisatracurium Norepinephrine Loreazepam Aminophylline Lab and Diagnostics Item Value Date Time Red Blood Count 4.33 mil/mm3 L 04/18/17234 Mean Corpuscular Volume 94.5 fL 04/18/17234 Mean Corpuscular Hemoglobin 30.0 pg 04/18/17 0235 Mean Corpuscular Hemoglobin Concent 31.8 % L 04/18/17234 Red Cell Distribution Width 12.8 % 04/18/17234 Estimat Glomerular Filtration Rate 110 mL/min 04/18/17234 Calcium Level 8.9 mg/dL 04/18/17234 Total Bilirubin 0.3 mg/dL 04/18/17234 Aspartate Amino Transf (AST/SGOT) 9 U/L 04/18/17234 Alanine Aminotransferase (ALT/SGPT) 10 U/L 04/18/17234 Alkaline Phosphatase 52 U/L 04/18/17234 Total Protein 5.8 g/dL L 04/18/17234 Albumin 3.6 g/dL 04/18/17234 Result Diagram: 04/18/1723404/18/17234 Microbiology PCR negative MRSA negative Urine Strep Antigen Negative X-Rays, CTs and MRIs PROCEDURE: X-RAY CHEST ONE VIEW, PORTABLE ([id number]) - Images viewed IMPRESSION: 1. Resolution of patchy opacities seen on the 04/10/17 study which may have reflected pulmonary edema. No acute consolidation. Dictated by: Torres Barrow M.D. on 04/14/2017 at 11:05 Approved by: Torres Barrow M.D. on 04/14/2017 at 11:09 12-lead ECG Sinus Tachycardia with nonspecific intraventricular conduction delay. Assessment & Plan Pt is a 61 year old male with a history of asthma who presents to the ED via EMS in respiratory distress, and was intubated in the ED. Admitted for status asthmaticus to the CCU. Acute hypercapnic respiratory failure. Present on admission. Resolving. - Initial ABG: pH 6.96, pCO2 105, bicarb 22.5, pO2 405. Secondary to status asthmaticus. - Mechanical ventilation with decreased I:E ratio. FiO2: 40%, PEEP 12, R16, TV 550 pPeak 35, pMean: 17. - Continue propofol and fentanyl gtt for sedation - continue Lorazepam IV for agitation while on ventilation. Acute status asthmaticus. Present on admission. Active - Pt presents with severe asthma exacerbation refractory to beta agonist treatment and BiPAP, intubated on admission. Likely secondary to community acquired pneumonia. Received Mg sulfate in ED. - Continue mechanical ventilation - Duoneb q4h currently held as this causes bronchospasms - Albuterol inhaler 4 puffs q2h - Continue Aminophylline - Continue Solu Medrol 125 mg q6h Acute respiratory acidosis. Present on admission. Active - Will continue to monitor Acute sepsis. Present on admission. Resolved - Secondary to CAP. Temp 36, HR 142, RR 40 on admission. - NS @ 100 ml/hr -lactic acid 1.5 on 04/16 Lactic acidosis, acute. Present on admission. Resolved - Continue to monitor as needed or if patient spikes a temp. Community acquired pneumonia, acute. Present on admission. Resolved - WBC count has been within normal limits since 04/16 and no longer requiring antibiotics. -CXR showed mild patchy bilateral perihilar opacity. - Strep pneumo and Legionella urine antigens negative - Sputum and blood cultures no growth after 2 days - MRSA screen negative Hyperglycemia, acute. Present on admission. - Pt has no prior history of diabetes. BG 172 on admission. - Increase Lantus from 10U to 20U QHS - A1c 5.7 - Recheck BG in AM with CMP Diet: - TPN started 04/17 - Monitoring CMP, AM Mg - Bowel regimen as needed - Antiemetic as needed - Famotidine for GI prophylaxis Disposition: Patient is still showing signs of severe status asthmaticus. We have started TPN therapy. Length of stay is uncertain, patient remains in serious medical condition, and although improving, still requires continued mechanical ventilation with no definitive end date in sight. GI Prophylaxis: H2 carlo VTE Prophylaxis: Sub-Q Heparin (Unfractionated) VTE Mechanical Devices: Intermittant Pneumatic CD Resuscitation Status: CPR: Attempt Resuscitation Attending Statement The patient was seen and examined together with Dr. Carter on 04/18/17 and I agree with the history, exam and plan as outlined in the note above. Coleman Carter DO Apr 18, 2017 13:56 April Ramírez DO Apr 18, 2017 17:40
--- NOTE | 2017-04-18 14:14 | NUR ---
NUTRITION FOLLOW-UP: Assess: 61 YO male admitted to CCU with acute respiratory failure with asthma exacerbation secondary to pneumonia. Pt remains intubated, NPO x 5 D d/t respiratory issues. Nimbex discontinued today. Pulmonology initiated enteral feeding at trophic rate this afternoon. PMHX: Asthma. DIET: NPO. LABS:Na 147, CO2 31, BUN 39, Glu 184. MEDICATIONS: Reviewed. Solu-medrol, Fentanyl, Lasix, Norepi, Insulin. GI: No BM noted x 5 D. SKIN: No issues noted. ANTHROPOMETRICS: Wt: 87.8 kg, BMI 26.0 kg/m2, Admit wt: 82.2 kg. ESTIMATED NEEDS: VENT Calories: 5031-4690 kcal/day (20-25 kcal/kg BW) Protein: 120-145 g/day (1.5-1.8 g/kg BW) NUTRITION DIAGNOSIS: 1) Inadequate oral intake related to decreased ability to consume sufficient energy as evidenced by NPO/VENT status - PERSISTS WITH ENTERAL FEEDING AT TROPHIC RATE. INTERVENTION: 1) Pulmocare enteral formula initiated at 10 mL/hr this afternoon. Once tolerance established, recommend advance 10 ml every 12 hr. to goal rate 50ml/hr to provide 1650kcal, 68g pro ( 100% kcal and 56% pro needs) 2) Advance goal rate once it is determined propofol will not be restarted. 3) Once enteral feeding tolerance established, will add Prosource liquid protein to better meet protein needs. 4) If BG levels continue to be high, will consider using Glucerna TF formula MONITOR/EVALUATE: NPO/Vent status, enteral feeding tolerance / advance, BM, POC, labs, GI/nutrition status. Follow per high nutrition risk guidelines.
[2017-04-18] MEDS: LORazepam 100 mg/100 mL Drip IV PRN ×2 (14:34)
--- NOTE | 2017-04-18 16:03 | PCM.PNMED ---
Subjective Date of Service Apr 18, 2017 Subjective Patient remains sedated and mechanically ventilated without acute events overnight. Able to wean off Cisatracurium. Current drips: fentanyl 100mcg/hr and lorazepam 3mg/hr. Exam Vital Signs Vital Sign - Last Date Time Temp Pulse Resp B/P Pulse Ox O2 Delivery O2 Flow Rate FiO2 04/18/17 12:05 Ventilator 04/18/17 12:05 37.2 92 18 138/83 93 40 04/13/17 20:52 15 Intake and Output 04/17/17 04/17/17 04/18/17 Cumulative From/Thru 15:00 23:00 07:00 04/13/17 20:52 - 04/18/17 06:01 Intake Total 1012 ml 677 ml 07186 ml Output Total 2300 ml 1100 ml 61761 ml Balance -1288 ml -423 ml 5473 ml Intake Oral 0 ml 0 ml IV Total 1012 ml 677 ml 95642 ml Output Urine Total 2050 ml 1000 ml 8975 ml Gastric Drainage Total 250 ml 100 ml 1050 ml # Voids 1 # Bowel Movements 0 0 Exam General: Sedated and mechanically intubated. ETT in place. HEENT: Normocephalic, atraumatic. Pupils equal, round, and reactive to light. Moist mucosa. Cardiovascular: Regular rate and rhythm with no murmurs, rubs, or gallops appreciated Pulmonary: Symmetric chest rise with equal air entry and decreased breath sounds bilaterally. Scattered wheezes throughout, improved compared to yesterday. Abdomen: Soft, decreased bowel tones Skin: Normal temperature, turgor, and texture Neurological: Sedated. IVs and Medications Medications Reviewed: Medications were reviewed in detail Lab and Diagnostics Laboratory Tests Test 04/17/17 13:40 04/18/17 02:35 04/18/17 05:15 Potassium Level 4.4mEq/L (3.5-5.2) 4.5mEq/L (3.5-5.2) White Blood Count 6.6th/mm3 (3.8-10.1) Red Blood Count 4.33mil/mm3 (4.40-5.80) Hemoglobin 13.0g/dL (13.8-17.2) Hematocrit 40.9% (41.0-50.0) Mean Corpuscular Volume 94.5fL (81-100) Mean Corpuscular Hemoglobin 30.0pg (27.0-35.0) Mean Corpuscular Hemoglobin Concent 31.8% (32.0-37.0) Red Cell Distribution Width 12.8% (12.3-15.4) Platelet Count 143bil/L (150-400) Sodium Level 147mEq/L (134-144) Chloride Level 107mEq/L (97-108) Carbon Dioxide Level 31mmol/L (18-29) Blood Urea Nitrogen 39mg/dL (8-27) Creatinine 0.77mg/dL (0.76-1.27) Estimat Glomerular Filtration Rate 110mL/min (>59) Glucose Level 184mg/dL (60-99) Calcium Level 8.9mg/dL (8.5-10.1) Total Bilirubin 0.3mg/dL (0.0-1.2) Aspartate Amino Transf (AST/SGOT) 9U/L (0-50) Alanine Aminotransferase (ALT/SGPT) 10U/L (0-44) Alkaline Phosphatase 52U/L (25-160) Total Protein 5.8g/dL (6.4-8.4) Albumin 3.6g/dL (3.4-5.0) Microbiology 04/13/17 Blood Culture - No growth at 2 days; culture examined... 04/14/17 Respiratory PCR 04/14/17 Streptococcus pneumoniae Ag Screen -Negative 04/13/17 Sputum Culture - MODERATE NORMAL MOLLY PRESENT Result Diagram: 04/18/17 0235 04/18/17 0235 X-Rays, CTs and MRIs (04/17/17) X-RAY CHEST ONE VIEW, PORTABLE IMPRESSION: Stable support equipment. Improved mild diffuse ground glass opacities since 04/15/17 suggesting improved atelectasis/aspiration, or pulmonary edema. Please correlate clinically. No new focal consolidation. Dictated and approved by: Jsoe Aparicio MD. on 04/17/2017 at 10:26 Additional Diagnostics DateTimeAnalyzed 09:39:00 -_ pH ____7.288 - pCO2 ___59.0__ -mmHg pO2 ___52.2__ -mmHg HCO3- ___27.4__ -mmol/L ABE ____0.2__ -mmol/L tHb ___12.2__ -g/dL O2Hb ___82.3__ -% COHb ____1.0__ -% MetHb ____0.8__ -% sO2 ___83.8__ -% FIO2 ___40.0__ -% PEEP ___15.0__ -cmH2O Set_RR ___16.0__ -b/min Vt __400.0__ -L Drawn By as - Date/Time Notified____ 09:44:00 -_ Spontaneous_RR ___16.0__ -b/min Oxygen Device 1 VENTILATOR - Notified By ams - Notified Whom dr kendregan - B 761 -mmHg tO2 ___14.1__ -Vol% Justice test N/A - Assessment & Plan 61 year old male who presented to the ED on 04/13 in respiratory distress and admitted for status asthmaticus. Patient is off paralytics and tolerating the Albuterol inhaler at 4 puffs every four hours with bronchospasm noted only when patient moved for routine care after attempting to titrate down on the Ativan as well. These episodes were relieved when Ativan maintained at 3mg/hr. He appears less anxious and oxygenation improving. Tidal volume increased to 550 with a respiratory rate of 18. FiO2 maintained at 40% and Peep decreased to 12. 1. Albuterol 4 puffs via inhaler Q2 hours 2. Continue Aminophylline infusion, theophylline levels are a send out. 3. Decrease IV methylprednisolone to 125mg Q12 hours 4. Continue ativan and fentanyl 5. Furosemide again today, 20mg IV . GI Prophylaxis: H2 carlo VTE Prophylaxis: Sub-Q Heparin (Unfractionated) VTE Mechanical Devices: Intermittant Pneumatic CD Resuscitation Status: CPR: Attempt Resuscitation Attending Statement The patient was seen and examined together with Dr. Michaels on 04/18/2017 and I have added additional information to the note above. Time spent in critical care: 58 minutes Arabella Michaels DO Apr 18, 2017 13:07 Ronni Brooks MD Apr 20, 2017 14:31
--- NOTE | 2017-04-18 17:47 | NUR ---
Sedation/ventilator Ativan decreased from 2mg/h to1mg/h infusion after about 45min patient started to double stack his breathing with oxygen saturation decreasing to 90-91% without any other changes-. Consulted with MD-Ativan drip resumed at 2mg/h infusion in addition fentanyl drip increased to 130mcg/h from 100mcg/h. patient responded well and was able to relax with oxygen saturation increasing to 93-96%. Ventilator changes by MD with TV increased to 550- patient tolerated change well. Turning Patient tolerated some turned in bed to the right and to the left. Turning was alternated with continues rotation in bed- oxygen saturation remained stable, no increase in agitation was noted. Patient had some small to moderate amount of off white to ten colored thick to thin ET secretions aspirated while coughing. The amount of ET recreations were increased after turning- continue turning/rotation. Lasix 20mg IV total urine output through Tinsley cath was 2350ml- consulted with MD continue primary IV fluids at TKO rate.
[2017-04-18] MEDS: Propofol Inj 1,000,000 MCG in IV Premix 1 EACH IV SCH (20:38)
[2017-04-18] MEDS ORDERED: Insulin GLARgine 100 Unit/mL Syringe SUBQ SCH (21:00)
[2017-04-18] MEDS: Albuterol HFA 200 Puff Inhaler (Vent Pts Only) INHALATION PRN (23:15)
[2017-04-19] VITALS (14 sets, daily range): BP systolic 128–157; BP diastolic 73–85; PULSE 87–94; RESP 15–22; O2SAT 94–99
[2017-04-19] MEDS: Heparin 5,000 Unit/mL Inj SUBQ SCH ×3 (00:16→15:33)
[2017-04-19] MEDS: Chlorhexidine 0.12% 15 mL Oral Solution MT SCH ×6 (00:16→20:12)
[2017-04-19] MEDS: Albuterol HFA 200 Puff Inhaler (Vent Pts Only) INHALATION PRN ×6 (01:19→20:17)
[2017-04-19] MEDS: 0.9% Sodium Chloride 1,000 ML IV SCH (02:10)
[2017-04-19] MEDS: Insulin Human REGular 300 Unit/3 mL Inj SUBQ SCH ×4 (04:32→20:21)
[2017-04-19 05:25] LABS: Mean Corpuscular Hemoglobin 30.2 pg (27.0-35.0); Mean Corpuscular Volume 93.5 fL (81-100)
[2017-04-19 05:54] LABS: Magnesium 2.4 mg/dL (1.6-2.6)
[2017-04-19] MEDS ORDERED: Insulin GLARgine 100 Unit/mL Syringe SUBQ ONE (07:25)
[2017-04-19] MEDS: Famotidine Inj 20 MG in IV Premix 1 EACH IV SCH ×2 (08:00→20:20)
[2017-04-19] MEDS: MethylprednisoLONE Sodium Succinate 62.5 mg/mL 2 mL Inj IVPUSH SCH ×2 (08:00→20:12)
--- NOTE | 2017-04-19 08:28 | PCM.PNMED ---
Subjective Date of Service Apr 19, 2017 Subjective Nursing reports no acute events overnight. Patient seen and examined laying in bed, sedated. Aminophylline IV, Lorazepam IV, and Fentanyl IV running. Mechanical Ventilation settings: FiO2 40%, PEEP 12 , R16, TV550. ROS unable to be assessed secondary to sedation. Day nursing reports that she smelled alcohol on 's breath today and yesterday, concern for patient going through possible alcohol withdrawal during his time here. Patient has been responding well to Ativan. Exam Vital Signs Vital Sign - Last Date Time Temp Pulse Resp B/P Pulse Ox O2 Delivery O2 Flow Rate FiO2 04/19/17 07:36 88 128/81 97 40 04/19/17 07:24 37.3 17 Mechanical Ventilator 04/13/17 20:52 15 Intake and Output 04/18/17 04/18/17 04/19/17 Cumulative From/Thru 15:00 23:00 07:00 04/13/17 20:52 - 04/19/17 06:28 Intake Total 659 ml 827 ml 53337 ml Output Total 2550 ml 1350 ml 72443 ml Balance -1891 ml -523 ml 3059 ml Intake Oral 0 ml IV Total 579 ml 757 ml 73425 ml Tube Irrigant 80 ml 70 ml 150 ml Output Urine Total 2350 ml 1100 ml 68028 ml Gastric Drainage Total 200 ml 250 ml 1500 ml # Voids 1 # Bowel Movements 0 Exam Constitutional: Sedated and Mechanically Ventilated. In no acute distress Head: normocephalic and atraumatic Eyes: pink conjunctiva, no scleral icterus Heart: Regular Rate and rhythm. No peripheral edema. 3/4 radial pulses bilaterally. Lungs: Diffuse wheeze throughout, improved from yesterday's examination. No rales or rhonchi. Mechanically Ventilated. ABD: soft. bowel sounds present throughout Musculoskeletal: Appropriate muscle tone. Skin: warm, dry, no rashes. Psych: unable to assess secondary to sedation IVs and Medications Medications Reviewed: Medications were reviewed in detail Medications High Risk Medications: Aminophylline Lorazepam Fentanyl Lab and Diagnostics Item Value Date Time Red Blood Count 4.30 mil/mm3 L 04/19/17 05 Mean Corpuscular Volume 93.5 fL 04/19/17 05 Mean Corpuscular Hemoglobin 30.2 pg 04/19/17519 Mean Corpuscular Hemoglobin Concent 32.3 % 04/19/17 05 Red Cell Distribution Width 12.7 % 04/19/17 05 Estimat Glomerular Filtration Rate 108 mL/min 04/19/17 05 Calcium Level 8.8 mg/dL 04/19/17 05 Magnesium Level 2.4 mg/dL 04/19/17 05 Total Bilirubin 0.7 mg/dL 04/19/17 05 Aspartate Amino Transf (AST/SGOT) 16 U/L 04/19/17 05 Alanine Aminotransferase (ALT/SGPT) 13 U/L 04/19/17 05 Alkaline Phosphatase 50 U/L 04/19/17 05 Albumin 3.5 g/dL 04/19/17519 Total Protein 5.6 g/dL L 04/19/17519 Theophylline Level 14.0 ug/mL Rx 04/18/17 0515 Result Diagram: 04/19/1751904/19/17519 Microbiology PCR negative MRSA negative Urine Strep Antigen Negative X-Rays, CTs and MRIs (04/17/17) X-RAY CHEST ONE VIEW, PORTABLE IMPRESSION: Stable support equipment. Improved mild diffuse ground glass opacities since 04/15/17 suggesting improved atelectasis/aspiration, or pulmonary edema. Please correlate clinically. No new focal consolidation. Dictated and approved by: Jose Aparicio MD. on 04/17/2017 at 10:26 12-lead ECG Sinus Tachycardia with nonspecific intraventricular conduction delay. Additional Diagnostics DateTimeAnalyzed 09:39:00 -_ pH ____7.288 - pCO2 ___59.0__ -mmHg pO2 ___52.2__ -mmHg HCO3- ___27.4__ -mmol/L ABE ____0.2__ -mmol/L tHb ___12.2__ -g/dL O2Hb ___82.3__ -% COHb ____1.0__ -% MetHb ____0.8__ -% sO2 ___83.8__ -% FIO2 ___40.0__ -% PEEP ___15.0__ -cmH2O Set_RR ___16.0__ -b/min Vt __400.0__ -L Drawn By as - Date/Time Notified____ 09:44:00 -_ Spontaneous_RR ___16.0__ -b/min Oxygen Device 1 VENTILATOR - Notified By ams - Notified Whom dr morales - B 761 -mmHg tO2 ___14.1__ -Vol% Justice test N/A - Assessment & Plan Pt is a 61 year old male with a history of asthma who presents to the ED via EMS in respiratory distress, and was intubated in the ED. Admitted for status asthmaticus to the CCU. Acute hypercapnic respiratory failure. Present on admission. Resolving. - Initial ABG: pH 6.96, pCO2 105, bicarb 22.5, pO2 405. Secondary to status asthmaticus. - ABG today 04/19/17: pH 7.47, pCO2 46.2, bicarb 33.5, pO2 78.2 - Mechanical ventilation with decreased I:E ratio. FiO2: 40%, PEEP 12, R16, TV 550 pPeak 35, pMean: 17. - Continue fentanyl gtt for sedation. Propofol held as patient's condition is improving. - Continue Lorazepam IV for agitation while on ventilation. Acute status asthmaticus. Present on admission. Active - Pt presents with severe asthma exacerbation refractory to beta agonist treatment and BiPAP, intubated on admission. - Continue mechanical ventilation: settings as above - Duoneb q4h currently held as this causes bronchospasms - Albuterol inhaler 4 puffs q2h - Continue Aminophylline - Continue Solu Medrol 125 mg q6h Acute respiratory acidosis. Present on admission. Active - Will continue to monitor Acute sepsis. Present on admission. Resolved - Secondary to CAP. Temp 36, HR 142, RR 40 on admission. - NS @ 100 ml/hr -lactic acid 1.5 on 04/16 Lactic acidosis, acute. Present on admission. Resolved - Continue to monitor as needed or if patient spikes a temp. Community acquired pneumonia, acute. Present on admission. Resolved - WBC count has been within normal limits since 04/16 and no longer requiring antibiotics. -CXR showed mild patchy bilateral perihilar opacity. - Strep pneumo and Legionella urine antigens negative - Sputum and blood cultures no growth after 2 days - MRSA screen negative Hyperglycemia, acute. Present on admission. - Pt has no prior history of diabetes. BG 172 on admission. - Continue Lantus 20U QHS - A1c 5.7 - Recheck BG in AM with CMP Diet: - TPN started 04/17 - Monitoring CMP, AM Mg - Bowel regimen as needed - Antiemetic as needed - Famotidine for GI prophylaxis Disposition: Patient is still showing signs of severe status asthmaticus. We have started TPN therapy. Length of stay is uncertain, patient remains in serious medical condition, and although improving, still requires continued mechanical ventilation with no definitive end date in sight. GI Prophylaxis: H2 carlo VTE Prophylaxis: Sub-Q Heparin (Unfractionated) VTE Mechanical Devices: Intermittant Pneumatic CD Resuscitation Status: CPR: Attempt Resuscitation Attending Statement The patient was seen and examined together with Dr. Carter on 04/19/17 and I have added additional information to the note above. Coleman Carter DO Apr 19, 2017 08:28 April Ramírez DO Apr 19, 2017 16:39
--- NOTE | 2017-04-19 08:55 | ABG ---
DateTimeAnalyzed 08:48:00 -_ pH ____7.473 - 7.350 7.450 pCO2 ___46.2__ -mmHg 35.0 45.0 pO2 ___78.2__ -mmHg 69.0 116 HCO3- ___33.5__ -mmol/L 22.0 26.0 ABE ____8.9__ -mmol/L -2.0 2.0 tHb ___12.9__ -g/dL O2Hb ___94.6__ -% COHb ____1.0__ -% MetHb ____0.9__ -% sO2 ___96.4__ -% 25.0 FIO2 ___40.0__ -% PRVC 550 - PEEP ___12.0__ -cmH2O Set_RR ___16.0__ -b/min Vt __550.0__ -L Drawn By NB - Date/Time Notified____ 08:54:00 -_ Spontaneous_RR ___20.0__ -b/min Oxygen Device 1 VENTILATOR - Notified By NB - Notified Whom ___DR. RYLIE - B 761 -mmHg tO2 ___17.2__ -Vol% Justice test _Positive -
--- NOTE | 2017-04-19 10:30 | NUR ---
NUTRITION FOLLOW-UP: Assess: 61 YO male admitted to CCU with acute respiratory failure with asthma exacerbation secondary to pneumonia. Pt remains intubated, NPO x 6 D d/t respiratory issues. There is concern regarding possible alcohol withdrawal after smelling alcohol on his 's breath yesterday. Dr. Brooks wrote for trophic enteral feeding yesterday; however, nursing reporting that orders were not communicated, and pt. remains NPO. Nursing also reporting abdominal distention this morning and is hesitant to initiate enteral feeding. PMHX: Asthma. DIET: NPO. LABS:Na 148, CO2 32, BUn 42, Glu 181, A1c 5.7. MEDICATIONS: Reviewed. Solu-medrol, Fentanyl, Ativan, Lasix, Insulin. GI: No BM noted x 6 D. SKIN: No issues noted. ANTHROPOMETRICS: Wt: 83.2 kg, BMI 24.0 kg/m2, Admit wt: 82.2 kg. ESTIMATED NEEDS: VENT Calories: 2003-4694 kcal/day (20-25 kcal/kg BW) Protein: 120-145 g/day (1.5-1.8 g/kg BW) NUTRITION DIAGNOSIS: 1) Inadequate oral intake related to decreased ability to consume sufficient energy as evidenced by NPO/VENT status - PERSISTS. INTERVENTION: 1) Once GI tract determined to be functional, recommend initiate Pulmocare enteral formula 10 mL/hr x 24 hr. Once tolerance established, recommend advance 10 ml every 12 hr. to goal rate 50ml/hr to provide 1650kcal, 68g pro ( 100% kcal and 56% pro needs) 2) Advance goal rate once it is determined propofol will not be restarted. 3) Once enteral feeding tolerance established, will add Prosource liquid protein to better meet protein needs. 4) If BG levels continue to be high, will consider using Glucerna TF formula MONITOR/EVALUATE: NPO/Vent status, enteral feeding initiation / tolerance / advance, BM, POC, labs, GI/nutrition status. Follow per high nutrition risk guidelines. Addendum: 04/19/17 at [address] Brooks signed trophic enteral feeding orders this morning; will monitor tolerance / advance.
[2017-04-19] MEDS ORDERED: Methylnaltrexone 12 mg/0.6 mL Inj SUBQ ONE (11:35)
[2017-04-19] MEDS: Dextrose 5% 0.45% NaCl 1,000 ML IV SCH (11:50)
[2017-04-19] MEDS: DEXTROSE 5% IV SCH (12:24)
[2017-04-19] MEDS: AMINOPHYLLINE IV SCH (12:24)
[2017-04-19] MEDS: fentaNYL 2,500 mCg/250 mL 2,500 MCG in IV Premix 1 EACH IV SCH ×2 (12:25→21:16)
--- NOTE | 2017-04-19 13:07 | PROG NOTE ---
[address] [address] PROGRESS NOTE PATIENT: PAPO BEVERLY : 1955 MR#: [id number] ADMIT: 04/13/2017 JOB ID: [id number] DATE: 04/19/2017 PULMONARY CRITICAL CARE FOLLOW UP NOTE: PROBLEMS: 1. Status asthmaticus. 2. Ileus. 3. Hypernatremia. SUBJECTIVE: None. OBJECTIVE: T-max 37.3. Pulse mid 80s. Respiratory rate 16 with ventilator set at 16. Blood pressure 128/81, O2 sat on FiO2 40%, PEEP of 14, measured at 16-17 is 97%. I and O shows 1.3 L in, 3.6 L out. General appearance: The patient sedated on a ventilator. Occasionally takes a spontaneous breath. Eyes: Conjunctivae are pink. Chest: Moderately decreased breath sounds. Diffuse inspiratory and expiratory wheezes. Some scattered squeaking pulmonary adventitial sounds. With a tidal volume of 550, PEEP of 14 measured at 17, peak inspiratory pressure 36, plateau about 22, though somewhat hard to establish. PEEP is set at 14, measured at 16-17. Heart: Regular rhythm. Heart tones normal. Abdomen: Soft. A few bowel tones noted. Extremities: No pretibial edema. LABORATORY DATA: Shows a white count of 7500. Differential not available. Hemoglobin stable at 13. Platelet count falling slowly at 128,000. Sodium 148, potassium 4.6, chloride 106. CO2 is 32. BUN 42, slowly rising. Creatinine 0.78, stable. Glucose 181. Calcium 8.8 with an albumin of 3.5, magnesium normal at 2.4. Total bilirubin 0.7. AST 16, ALT 13, alkaline phos 50. Theophylline level 14. The arterial blood gases on FiO2 of 0.4, PEEP of 12, tidal volume of 550, rate of 16 shows pO2 of 78, a pCO2 of 46, pH of 7.47. ASSESSMENT: 1. Status asthmaticus. Doing a little bit better. With the improved ventilation, he has developed a mild post hypercapnic metabolic alkalosis with a very mild respiratory acidosis resulting in a mild alkalemia. I think part of it is he is getting a bit volume depleted as well with diuresis having taken off 3 L in the past 48 hours. Potassium is normal and in fact has been running high. Suspect that he wants bigger tidal volumes based on the ventilator waveforms. On occasion, initiates a breath. I think with concerns over severe critical illness myopathy and neuropathy due to the high dose steroids as well as prolonged paralytic administration, we might try using IMV approach to start working on his ventilator muscles to see if we can start returning tone. I think he would pretty much fail pressure support trials due to his sedation as well as his myopathy and it would be hard to tell the difference. Therefore, I think a low rate of SIMV with high mandatory rates to almost control his complete ventilation might be helpful. Theophylline level is 14. This is a 12 hour level. Might rise a bit. Will discuss with pharmacy about dropping the infusion from 40 mg an hour to maybe 36 mg an hour to achieve a serum level of 12 mcg/mL. 2. Slight ileus. Has not had a bowel movement in a few days. Will start trophic feeds with Pulmocare. A trial of one dose of methylnaltrexone to see if we can eliminate any opiate-induced ileus. 3. Hypernatremia. Has a mild hypernatremia. Will start replacing with free water in association with trophic tube feedings. Also give him a bit of free water IV replacing maybe a calculate approximately 3 L of free water deficit. That would replace a little over a third of it in the next 24 hours. 4. Prolonged paralysis with marked airway sensitivity. Paralysis has been discontinued for the last two days. Airway hypersensitivity is slowly improving. There is still concern about nebulized medications. Will continue with inhaled medications. Can resume oral care. Also restart turning in his bed as needed. PLAN: 1. Vent change to be SIMV rate of 15, tidal volume of 530, PEEP of 13, pressure support of 15, FiO2 of 0.4. 2. Discuss aminophylline infusion with pharmacy. 3. Start tube feeding. 4. IV fluids consist of D5 half-normal saline at 80 mL an hour. 5. Chest x-ray in the a.m. 6. Morning bloods consist of CBC with diff, CMP, magnesium, phosphorus, procalcitonin, arterial blood gases. 7. Start tube feeding, Pulmocare at 10 mL an hour advancing as tolerated with water 40 mL flushes q.4 hours. 8. Albuterol inhaler. Administration reviewed. 9. Methylnaltrexone 12 mcg subcu today. 10. Resume routine nursing care with rotation. TIME: Time spent so far critical care, 57 minutes.
[2017-04-19] MEDS: Albuterol HFA 200 Puff Inhaler (Vent Pts Only) INHALATION SCH ×4 (13:10→20:18)
[2017-04-19] MEDS: LORazepam 100 mg/100 mL Drip IV PRN ×2 (16:32)
--- NOTE | 2017-04-19 18:06 | NUR ---
Vent/sedation/tube feeds ABG this morning at 0848- please see results in EMR. Ventilator changes per attending scout executive to SIMV mode with 40% FIO2, PEEP OF 13, RR 15 and TV 530- oxygen saturation 95-96% per finger oximetry. Patient was starting to take some berthas independently and over ventilator rate by 1-5 breaths per min- MD aware. Sedation gradual decrease of Ativan drip to 0.5mg/h and Fentanyl drip to 90 mcg/h-BIS at high 40s when relax and up to 80s with repositioning, ROM or at times verbal stimulation. Patient was not opening his eyes or following commands at the time but was making frowning faces during suctioning/oral care. Patient tolerated turning/repositioning well today without significant changes in his vitals and respiratory status. Audible hypoactive bowel sounds today. OG suction was discontinued and patient was placed on 10ml/h Pulmocare tube feeding with 40ml H2O flush q4h- gastric residual after 4h of feeding was 15ml- HOB at all times at 30 degrees or higher if tolerating. Patient has not have a BM since admit to the hospital so far- Relistor SUBQ ordered dose was given to facilitate increase gastric motility- continue assessment.
[2017-04-19] MEDS ORDERED: Insulin GLARgine 100 Unit/mL Syringe SUBQ SCH (21:00)
[2017-04-20] VITALS (12 sets, daily range): BP systolic 139–179; BP diastolic 74–93; PULSE 78–88; RESP 15–17; O2SAT 96–98
[2017-04-20] MEDS: Heparin 5,000 Unit/mL Inj SUBQ SCH ×2 (00:16→08:30)
[2017-04-20] MEDS: Chlorhexidine 0.12% 15 mL Oral Solution MT SCH ×6 (00:17→20:32)
[2017-04-20] MEDS: Dextrose 5% 0.45% NaCl 1,000 ML IV SCH (00:17)
[2017-04-20] MEDS: Insulin Human REGular 300 Unit/3 mL Inj SUBQ SCH ×4 (01:43→20:30)
[2017-04-20] MEDS: Albuterol HFA 200 Puff Inhaler (Vent Pts Only) INHALATION SCH ×8 (03:05→23:21)
--- NOTE | 2017-04-20 05:03 | ABG ---
DateTimeAnalyzed 04:57:00 -_ pH ____7.454 - 7.350 7.450 pCO2 ___42.9__ -mmHg 35.0 45.0 pO2 101 -mmHg 69.0 116 HCO3- ___29.7__ -mmol/L 22.0 26.0 ABE ____5.5__ -mmol/L -2.0 2.0 tHb ___13.0__ -g/dL O2Hb ___96.0__ -% COHb ____1.0__ -% MetHb ____1.1__ -% sO2 ___98.1__ -% 25.0 FIO2 ___40.0__ -% PEEP ___13.0__ -cmH2O Set_RR ___16.0__ -b/min Vt __530.0__ -L Drawn By AF - Date/Time Notified____ 05:03:00 -_ Spontaneous_RR ___16.0__ -b/min Oxygen Device 1 VENTILATOR - Notified By AF - B 763 -mmHg tO2 ___17.6__ -Vol% OrderingPhysicianInitials bak - Justice test _Positive -
[2017-04-20 05:15] LABS: BASOPHILS % (AUTO) 0 % (0-3); EOSINOPHILS % (AUTO) 0 % (0-5); MONOCYTES % (AUTO) 6.3 % (4-12); Mean Corpuscular Hemoglobin 30.6 pg (27.0-35.0); Mean Corpuscular Volume 94.7 fL (81-100); NEUTROPHILS % (AUTO) 90.5 % (40-74); Platelet Count 105 bil/L (150-400)
[2017-04-20 06:11] LABS: Magnesium 2.4 mg/dL (1.6-2.6); Phosphorus 2.9 mg/dL (2.5-4.9)
[2017-04-20] MEDS: MethylprednisoLONE Sodium Succinate 62.5 mg/mL 2 mL Inj IVPUSH SCH ×2 (08:24→20:32)
[2017-04-20] MEDS: Famotidine Inj 20 MG in IV Premix 1 EACH IV SCH ×2 (08:24→20:32)
--- NOTE | 2017-04-20 08:52 | DRSVH ---
PROCEDURE: X-RAY CHEST ONE VIEW, PORTABLE ([id number]) INDICATIONS: 61-year-old male with status asthmaticus. TECHNIQUE: One view of the chest was acquired. COMPARISON: [facility], CR, XR CHEST 1VW (PORTABLE), 04/17/2017, 8:46. [facility], CR, XR CHEST 1VW (PORTABLE), 04/15/2017, 9:02. [facility], CR, XR CHEST 1VW (JUAN MANUEL BLE), 04/14/2017, 10:38. FINDINGS: Surgical changes and devices: Endotracheal tube is present, as well as nasogastric tube. Right PICC i s also present, with tip in expected position. Lungs and pleura: No pleural effusions or pneumothorax. Lungs are clear. Mediastinum: Mediastinal contours appear normal. Heart size is normal. Bones and chest wall: No suspicious bony lesions. Overlying soft tissues appear unremarkable. IMPRESSION: Endotracheal tube and nasogastric tube remain in expected positions. No acute pulmonary d isease. Dictated by: Ángel Clinton M.D. on 04/20/2017 at 8:49 Approved by: Ángel Clinton M.D. on 04/20/2017 at 8:50
--- NOTE | 2017-04-20 10:47 | NUR ---
Decreased plt count Gradual decrease in plt count based on daily labs since admit to the unit- consulted with MD KRAUSE Heparin morning dose to be held until reviewed by MD per attending hospitalist verbal order.
--- NOTE | 2017-04-20 11:29 | PCM.PNMED ---
Subjective Date of Service Apr 20, 2017 Subjective Patient remain intubated and sedated without any meaningful response to external stimuli. Patient breath stacking and over-breathing vent with lightened sedation Overnight downward titration of sedation was continued, patient with occasional frown or grimace to uncomfortable stimuli but not following commands or interacting in any meaningful way. Comprehensive ROS unable to be obtained in intubated sedated patient. Exam Vital Signs Vital Sign - Last Date Time Temp Pulse Resp B/P Pulse Ox O2 Delivery O2 Flow Rate FiO2 04/20/17 10:12 84 160/93 97 40 04/20/17 07:45 Ventilator 04/20/17 07:45 37.0 17 Intake and Output 04/19/17 04/19/17 04/20/17 Cumulative From/Thru 15:00 23:00 07:00 04/13/17 20:52 - 04/20/17 06:14 Intake Total 1073 ml 1744 ml 41072 ml Output Total 1300 ml 1200 ml 26011 ml Balance -227 ml 544 ml 3376 ml Intake Oral 0 ml IV Total 938 ml 1488 ml 39276 ml Tube Feeding 55 ml 135 ml 190 ml Tube Irrigant 80 ml 121 ml 351 ml Output Urine Total 1050 ml 1200 ml 52667 ml Gastric Drainage Total 250 ml 1750 ml # Voids 1 # Bowel Movements 0 0 Exam Gen: Intubated sedated patient with no meaningful response to external stimuli\ Neck: Supple, non tender, no JVD, HEENT: ET tube in place, pupils only minimally reactive to light, mucous membranes moist CV: RRR, no murmurs rubs or gallops Resp: Diffuse expiratory wheezing, unchanged from prior exam Abd: soft, no organomegaly, hypoactive bowel sounds throughout Extr: no clubbing cyanosis or edema Skin: No lesions or rashes as best as can be determined, patient desaturates with turns. IVs and Medications IV Fluids D5 NS @ 80 ml hr 800 ml NS delivered with IV meds Medications Reviewed: Medications were reviewed in detail Lab and Diagnostics Item Value Date Time Red Blood Count 4.15 mil/mm3 L 04/20/17 0507 Mean Corpuscular Volume 94.7 fL 04/20/17 0507 Mean Corpuscular Hemoglobin 30.6 pg 04/20/17 0507 Mean Corpuscular Hemoglobin Concent 32.3 % 04/20/17 0507 Red Cell Distribution Width 12.8 % 04/20/17 0507 Neutrophils (%) (Auto) 90.5 % H 04/20/17 0507 Lymphocytes (%) (Auto) 2.8 % L 04/20/17 0507 Monocytes (%) (Auto) 6.3 % 04/20/17 0507 Eosinophils (%) (Auto) 0 % 04/20/17 0507 Basophils (%) (Auto) 0 % 04/20/17 0507 Estimat Glomerular Filtration Rate 115 mL/min 04/20/17 0507 Calcium Level 8.8 mg/dL 04/20/17 0507 Phosphorus Level 2.9 mg/dL 04/20/17 0507 Magnesium Level 2.4 mg/dL 04/20/17 0507 Total Bilirubin 0.7 mg/dL 04/20/17 0507 Aspartate Amino Transf (AST/SGOT) 50 U/L 04/20/17 0507 Alanine Aminotransferase (ALT/SGPT) 57 U/L H 04/20/17 0507 Alkaline Phosphatase 57 U/L 04/20/17 0507 Total Protein 5.8 g/dL L 04/20/17 0507 Albumin 3.5 g/dL 04/20/17 0507 Procalcitonin 0.06 ng/mL 04/20/17 0507 Result Diagram: 04/20/17 05004/20/17 050 Microbiology PCR negative MRSA negative Urine Strep Antigen Negative X-Rays, CTs and MRIs (04/17/17) X-RAY CHEST ONE VIEW, PORTABLE IMPRESSION: Stable support equipment. Improved mild diffuse ground glass opacities since 04/15/17 suggesting improved atelectasis/aspiration, or pulmonary edema. Please correlate clinically. No new focal consolidation. Dictated and approved by: Jose Aparicio MD. on 04/17/2017 at 10:26 X-RAY CHEST ONE VIEW, PORTABLE IMPRESSION: Endotracheal tube and nasogastric tube remain in expected positions. No acute pulmonary disease. Dictated by: Ángel Clinton M.D. on 04/20/2017 at 8:49 Approved by: Ángle Clinton M.D. on 04/20/2017 at 8:50 . 12-lead ECG Sinus Tachycardia with nonspecific intraventricular conduction delay. Additional Diagnostics DateTimeAnalyzed 04:57:00 -_ pH ____7.454 - 7.350 7.450 pCO2 ___42.9__ -mmHg 35.0 45.0 pO2 101 -mmHg 69.0 116 HCO3- ___29.7__ -mmol/L 22.0 26.0 ABE ____5.5__ -mmol/L -2.0 2.0 Assessment & Plan Pt is a 61 year old male with a history of asthma who presents to the ED via EMS in respiratory distress, and was intubated in the ED. Admitted for status asthmaticus to the CCU. Course has been complicated by airways which are non- specifically extremely reactive to all inhaled compounds, which limits therapeutic options. Acute hypercapnic respiratory failure. Present on admission. Resolving. - Initial ABG: pH 6.96, pCO2 105, bicarb 22.5, pO2 405. Secondary to status asthmaticus. - Mechanical ventilation ICE team - Continue fentanyl gtt for sedation. Propofol held as patient's condition is improving. - Continue Lorazepam IV for agitation while on ventilation. Acute status asthmaticus. Present on admission. Active - Pt presents with severe asthma exacerbation refractory to beta agonist treatment and BiPAP, intubated on admission. - Continue mechanical ventilation - Duoneb q4h currently held as this causes bronchospasms - Albuterol inhaler 4 puffs q2h - Continue Aminophylline - Continue Solu Medrol 125 mg q6h Acute respiratory acidosis. Present on admission. Active - Will continue to monitor Acute sepsis. Present on admission. Resolved - Secondary to CAP. Temp 36, HR 142, RR 40 on admission. -D5NS @ 80ml/hr Lactic acidosis, acute. Present on admission. Resolved - Continue to monitor as needed or if patient spikes a temp. Community acquired pneumonia, acute. Present on admission. Resolved - WBC count has been within normal limits since 04/16 and no longer requiring antibiotics. -CXR showed mild patchy bilateral perihilar opacity. - Strep pneumo and Legionella urine antigens negative - Sputum and blood cultures no growth after 2 days - MRSA screen negative Hyperglycemia, acute. Present on admission. - Pt has no prior history of diabetes. BG 172 on admission. - Continue Lantus 20U QHS - A1c 5.7 - Recheck BG in AM with CMP Diet: - TPN started 04/17 - Monitoring CMP, AM Mg - Bowel regimen as needed - Antiemetic as needed - Famotidine for GI prophylaxis Disposition: Patient is still showing signs of severe status asthmaticus. We have started TPN therapy. Length of stay is uncertain, patient remains in serious medical condition, and although improving, still requires continued mechanical ventilation with no definitive end date in sight. Pain Evaluation: Adequate Pain Control GI Prophylaxis: H2 carlo VTE Prophylaxis: Sub-Q Heparin (Unfractionated) VTE Mechanical Devices: Intermittant Pneumatic CD Resuscitation Status: CPR: Attempt Resuscitation Attending Statement The patient was seen and examined together with Dr. Gonzalez on 04/20/17 and I agree with the history, exam and plan as outlined in the note above. Jim Gonzalez DO Apr 20, 2017 11:28 April Ramírez DO Apr 20, 2017 17:32
[2017-04-20] MEDS: fentaNYL 2,500 mCg/250 mL 2,500 MCG in IV Premix 1 EACH IV SCH (12:22)
[2017-04-20] MEDS ORDERED: Dextrose 5% 1,000 ML IV SCH (12:25)
[2017-04-20] MEDS: AMINOPHYLLINE IV SCH (12:34)
[2017-04-20] MEDS: DEXTROSE 5% IV SCH (12:34)
--- NOTE | 2017-04-20 13:13 | PROG NOTE ---
[address] [address] PROGRESS NOTE PATIENT: PAPO BEVERLY : 1955 MR#: [id number] ADMIT: 04/13/2017 JOB ID: [id number] DATE: 04/20/2017 PROBLEM LIST: 1. Status asthmaticus. 2. Hyperglycemia. 3. Hypernatremia. SUBJECTIVE: None. OBJECTIVE: Temperature 37, with T-max being 37.3. Pulse mid 80s. Respiratory rate 15-17 with ventilator set at IMV rate of 15. Blood pressure 156/88. O2 sat on FiO2 40%, PEEP of 13 is 97%. I and O shows 1.9 L in, 2.6 L out. General appearance: Sedated. Chest: Fair breath sounds bilaterally. Diffuse inspiratory and expiratory wheezes With some high-pitched squeaking pulmonary adventitial sounds. Somewhat more so on the left than the right. Unable to obtain pulmonary mechanics due to IMV. Currently pressure support is 15 on spontaneous breaths. Seems to be using the spontaneous breaths to stack on top of ventilator delivered breaths. Flow volume loop shows reasonable flow except on the stacked breaths. Heart: Regular rhythm. Heart tones normal. Abdomen soft. Bowel tones present. Extremities: No pretibial edema. LABORATORY DATA: Shows a white count of 7200 with 90 polymorphonuclears, no bands, 2 lymphocytes, 6 monocytes. Hemoglobin stable at 12.7. Platelet count 105,000 and slowly falling. Sodium 143, potassium 4.7, chloride 104, CO2 is 28, BUN 39 and stable, creatinine 0.7 and stable. Glucose 169. Calcium is 8.8 with albumin 3.5. Phosphorus normal at 2.9. Magnesium normal at 2.4. Total bilirubin 0.7. AST normal at 50, though rising. ALT mildly elevated at 57, again rising. Alkaline phos normal at 57 and stable. Chest x-ray shows lines in good position. No infiltrates. Lungs are clear. ASSESSMENT: 1. Status asthmaticus. Better air flow. Arterial blood gases on SIMV rate of 15, tidal volume of 530, rate of 16, PEEP of 13, pressure support of 15, show a pO2 of 101, pCO2 42, pH 7.45. Some better air entry. Peaks are certainly much lower suggesting that we are doing better with regard to flows. I think we can decrease his steroids given that we have had him on pharmacologic doses for four days now slowly decreasing. Still with rather large doses at 125 mg of Solu-Medrol twice a day. Remains on aminophylline infusion. Tolerating the inhaled bronchodilators fairly well. 2. Decreasing platelet, slight rise in ALT. Chest x-ray is normal. Thrombocytopenia may be first sign of sepsis. I am concerned about the sepsis given that we have had him on 500 mg of Solu-Medrol a day for a number of days and for a few days were unable to give him any suction or routine pulmonary toilet, given his severe airway sensitivity. It is a setup for pulmonary infection. Chest x-ray is normal, however. White count remains normal though with a significant neutrophilia. Has not been on antibiotics for a number of days, initially receiving azithromycin and ceftriaxone, but these were discontinued after three days when all cultures were negative. Will check for HIT, though I tend to doubt it. This would be day seven of heparin. This has been held. More likely DIC. However, that along with the mild elevations of the transaminase is a bit worrisome for infection. May be a line infection. May be fungal as well. 3. Hypernatremia. Hypernatremia has cleared. Sodium 143. We can discontinue the D5 half- normal saline, but he is receiving glargine insulin. Will therefore run D-5-W at a lower rate, increase the tube feeding, and continue to keep up with normal glucose. Fingerstick glucoses have been 117. However, serum glucose this morning was 169. PLAN: 1. Increase Pulmocare 220 mL/h with 40 mL water flushes q.4. 2. Chest x-ray in a.m. 3. Morning bloods consist of CBC with diff, CMP, Fungitell, heparin antibody, magnesium, phosphorus. 4. UA. 5. Awaiting sputum culture with the sputum Gram stain showing many polys. 6. Blood cultures x2. 7. Blood cultures for fungus x2. 8. Discontinue D5 half-normal. 9. D-5-W 20 mL/h x500 mL. 10. Decrease Solu-Medrol to 80 mg slow IV push q.12. 11. Heparin has been withheld. Time spent so far in critical care, 47 minutes.
[2017-04-20 13:31] LABS: APPEARANCE,URINE CLEAR (CLEAR,HAZY); COLOR,URINE STRAW (YELLOW); OCCULT BLOOD,URINE SMALL (NEGATIVE); UROBILINOGEN,URINE NORMAL (NORMAL)
[2017-04-20] MEDS: LORazepam 100 mg/100 mL Drip IV PRN ×2 (16:19)
[2017-04-20] MEDS ORDERED: Insulin GLARgine 100 Unit/mL Syringe SUBQ SCH (21:15)
[2017-04-21] VITALS (12 sets, daily range): BP systolic 110–174; BP diastolic 64–103; PULSE 66–107; RESP 12–20; O2SAT 93–99
[2017-04-21] MEDS: Chlorhexidine 0.12% 15 mL Oral Solution MT SCH ×7 (00:40→23:36)
[2017-04-21] MEDS: Albuterol HFA 200 Puff Inhaler (Vent Pts Only) INHALATION SCH ×6 (02:27→19:51)
[2017-04-21] MEDS: Insulin Human REGular 300 Unit/3 mL Inj SUBQ SCH ×4 (03:40→20:30)
[2017-04-21 03:48] LABS: BASOPHILS % (AUTO) 0 % (0-3); EOSINOPHILS % (AUTO) 0.1 % (0-5); MONOCYTES % (AUTO) 4.8 % (4-12); Mean Corpuscular Hemoglobin 30.1 pg (27.0-35.0); Mean Corpuscular Volume 91.6 fL (81-100); Platelet Count 102 bil/L (150-400)
--- NOTE | 2017-04-21 04:19 | NUR ---
vented/resp status pt on .40 per vent, sats 97-99%, resp rate 15-20/15, ls- decreased, intermittent exp wheezes, sx sml amt of whitish thin sputum per ett, oral care done, hob up, pt opens eyes independently, PERRLA, no movement of arms and legs seen, intermittent cough, ativan gtt at 0.5mg/hr and fentanyl gtt at 70mcg/hr, bis=60's-80's, 1mg bolus of ativan given times one when sbp 190, otherwise yce=208's-150's, no bm, tf per orders with minimal residuals, ogt placement=wnl, hob up, bt present, good uop per f/c, right picc intact, md aware of hs ah=919, lantus decreased from 30 units to 25 units qhs, see ccu flow sheet, plan:resp support,
[2017-04-21 04:27] LABS: Magnesium 2.1 mg/dL (1.6-2.6)
--- NOTE | 2017-04-21 05:42 | ABG ---
DateTimeAnalyzed 05:34:00 -_ pH ____7.461 - 7.350 7.450 pCO2 ___38.4__ -mmHg 35.0 45.0 pO2 ___82.3__ -mmHg 69.0 116 HCO3- ___27.0__ -mmol/L 22.0 26.0 ABE ____3.5__ -mmol/L -2.0 2.0 tHb ___13.4__ -g/dL O2Hb ___95.0__ -% COHb ____1.0__ -% MetHb ____1.0__ -% sO2 ___96.9__ -% 25.0 FIO2 ___40.0__ -% Pressure_Support ___15.0__ -cmH2O PEEP ___13.0__ -cmH2O Set_RR ___15.0__ -b/min Vt __530.0__ -L Drawn By blf - Oxygen Device 2 PRVC/SIMV - Date/Time Notified____ 05:41:00 -_ Spontaneous_RR ___21.0__ -b/min Oxygen Device 1 VENTILATOR - Notified By blf - [facility] -__ B 764 -mmHg tO2 ___18.0__ -Vol% Justice test _Positive -
[2017-04-21] MEDS: Famotidine Inj 20 MG in IV Premix 1 EACH IV SCH (07:40)
[2017-04-21] MEDS: MethylprednisoLONE Sodium Succinate 62.5 mg/mL 2 mL Inj IVPUSH SCH ×2 (07:40→20:45)
--- NOTE | 2017-04-21 10:01 | PCM.PNMED ---
Subjective Date of Service Apr 21, 2017 Subjective Nursing reports no acute events overnight. 1mg Ativan given when spb when up to 190's. Patient responded well and sbp came back down to 150s Patient seen and examined. Opens eyes to voice. at bedside and patient squeezes wifes hand when she speaks to him. Patient currently on ativan gtt at 0.5mg/hr and fentanyl gtt at 70mcg/hr. ROS unable to be assess secondary to mechanical ventilation. Exam Vital Signs Vital Sign - Last Date Time Temp Pulse Resp B/P Pulse Ox O2 Delivery O2 Flow Rate FiO2 04/21/17 08:30 Ventilator 04/21/17 08:30 36.8 107 15 174/103 96 40 Intake and Output 04/20/17 04/20/17 04/21/17 Cumulative From/Thru 15:00 23:00 07:00 04/13/17 20:52 - 04/21/17 06:00 Intake Total 1249 ml 1207 ml 97495 ml Output Total 1100 ml 1250 ml 48479 ml Balance 149 ml -43 ml 3482 ml Intake Oral 0 ml 0 ml IV Total 972 ml 834 ml 20676 ml Tube Feeding 156 ml 253 ml 599 ml Tube Irrigant 121 ml 120 ml 592 ml Output Urine Total 1100 ml 1250 ml 30685 ml Gastric Drainage Total 1750 ml # Voids 1 # Bowel Movements 0 0 0 Exam Constitutional: Patient on mechanical ventilation. Opens eyes to voice. No acute distress. Head: Normocephalic and atraumatic Eyes: Pupils equal round and reactive to light. [place] conjunctiva Heart: Regular rate and rhythm. 3/4 radial pulses. 3/4 dorsalis pedis pulses. No peripheral edema. Lungs: Diffuse expiratory wheeze throughout. No rales or rhonchi. Mechanical ventilation: FiO2 40%, PEEP 13, R16, TV550 ABD. Soft. Bowel sounds present throughout. Musculoskeletal: Appropriate muscle tone. Skin: warm and dry. no rash Psych: unable to asses secondary to mechanical ventilation. IVs and Medications Medications Reviewed: Medications were reviewed in detail Medications High Risk IV Medications: Fentanyl Lorazepam Aminophylline Lab and Diagnostics Item Value Date Time Carbon Dioxide Level 32 mmol/L H 04/19/17 0520 Chloride Level 106 mEq/L 04/19/17 0520 Red Blood Count 4.28 mil/mm3 L 04/21/17 0340 Mean Corpuscular Volume 91.6 fL 04/21/17 034 Mean Corpuscular Hemoglobin 30.1 pg 04/21/17 034 Mean Corpuscular Hemoglobin Concent 32.9 % 04/21/17 034 Red Cell Distribution Width 12.6 % 04/21/17 034 Neutrophils (%) (Auto) 91.0 % H 04/21/17 034 Lymphocytes (%) (Auto) 3.4 % L 04/21/17 034 Monocytes (%) (Auto) 4.8 % 04/21/17 034 Eosinophils (%) (Auto) 0.1 % 04/21/17 034 Basophils (%) (Auto) 0 % 04/21/17339 Estimat Glomerular Filtration Rate 158 mL/min 04/21/17 034 Calcium Level 8.6 mg/dL 04/21/17 034 Phosphorus Level 4.0 mg/dL 04/21/17 034 Magnesium Level 2.1 mg/dL 04/21/17 034 Total Bilirubin 0.8 mg/dL 04/21/17 0340 Aspartate Amino Transf (AST/SGOT) 42 U/L 04/21/17 0340 Alanine Aminotransferase (ALT/SGPT) 69 U/L H 04/21/17 0340 Alkaline Phosphatase 56 U/L 04/21/17 0340 Total Protein 5.7 g/dL L 04/21/17 0340 Albumin 3.3 g/dL L 04/21/17 0340 Theophylline Level 8.4 ug/mL Rx L 04/21/17 0724 Result Diagram: 04/21/17 03404/21/17 034 Microbiology PCR negative MRSA negative Urine Strep Antigen Negative X-Rays, CTs and MRIs (04/17/17) X-RAY CHEST ONE VIEW, PORTABLE IMPRESSION: Stable support equipment. Improved mild diffuse ground glass opacities since 04/15/17 suggesting improved atelectasis/aspiration, or pulmonary edema. Please correlate clinically. No new focal consolidation. Dictated and approved by: Jose Aparicio MD. on 04/17/2017 at 10:26 X-RAY CHEST ONE VIEW, PORTABLE IMPRESSION: Endotracheal tube and nasogastric tube remain in expected positions. No acute pulmonary disease. Dictated by: Ángel Clinton M.D. on 04/20/2017 at 8:49 Approved by: Ángel Clinton M.D. on 04/20/2017 at 8:50 . 12-lead ECG Sinus Tachycardia with nonspecific intraventricular conduction delay. Additional Diagnostics DateTimeAnalyzed 04:57:00 -_ pH ____7.454 - 7.350 7.450 pCO2 ___42.9__ -mmHg 35.0 45.0 pO2 101 -mmHg 69.0 116 HCO3- ___29.7__ -mmol/L 22.0 26.0 ABE ____5.5__ -mmol/L -2.0 2.0 Assessment & Plan Pt is a 61 year old male with a history of asthma who presents to the ED via EMS in respiratory distress, and was intubated in the ED. Admitted for status asthmaticus to the CCU. Course has been complicated by airways which are non- specifically extremely reactive to all inhaled compounds, which limits therapeutic options. Acute hypercapnic respiratory failure. Present on admission. Resolving. - Initial ABG: pH 6.96, pCO2 105, bicarb 22.5, pO2 405. Secondary to status asthmaticus. - Mechanical ventilation ICU team Current settings: FiO2 40%, PEEP 13, R16, TV550 - Continue fentanyl gtt for sedation. Propofol held as patient's condition is improving. - Continue Lorazepam IV for agitation while on ventilation. Acute status asthmaticus. Present on admission. Active - Pt presents with severe asthma exacerbation refractory to beta agonist treatment and BiPAP, intubated on admission. - Continue mechanical ventilation - Duoneb q4h currently held as this causes bronchospasms - Albuterol inhaler 4 puffs q2h - Continue Aminophylline - Continue Solu Medrol currently at 80 mg q6h. ICU team managing. Acute respiratory acidosis. Present on admission. Active - Will continue to monitor Acute sepsis. Present on admission. Resolved - Secondary to CAP. Temp 36, HR 142, RR 40 on admission. -D5NS @ 80ml/hr Lactic acidosis, acute. Present on admission. Resolved - Continue to monitor as needed or if patient spikes a temp. - Lactic Acid on 04/15 was 1.5. Community acquired pneumonia, acute. Present on admission. Resolved - WBC count has been within normal limits since 04/16 and no longer requiring antibiotics. -CXR showed mild patchy bilateral perihilar opacity. - Strep pneumo and Legionella urine antigens negative - Sputum and blood cultures no growth after 2 days - MRSA screen negative - Procalcitonin 04/20 was 0.06 Hyperglycemia, acute. Present on admission. - Pt has no prior history of diabetes. BG 172 on admission. - Continue Lantus 25U QHS - A1c 5.7 - Recheck BG in AM with CMP Diet: - TPN started 04/17 - Monitoring CMP, AM Mg - Bowel regimen as needed - Antiemetic as needed - Famotidine for GI prophylaxis Disposition: Patient is still showing signs of severe status asthmaticus. We have started TPN therapy. Length of stay is uncertain, patient remains in serious medical condition, and although improving, still requires continued mechanical ventilation with no definitive end date in sight. Pain Evaluation: Adequate Pain Control GI Prophylaxis: H2 carlo VTE Prophylaxis: Sub-Q Heparin (Unfractionated) VTE Mechanical Devices: Intermittant Pneumatic CD Resuscitation Status: CPR: Attempt Resuscitation Attending Statement The patient was seen and examined together with Dr. Carter on 04/21/2017 and I agree with the history, exam and plan as outlined in the note above. . Coelman Carter DO Apr 21, 2017 10:01 Cody Gentile MD Apr 21, 2017 14:24
--- NOTE | 2017-04-21 10:16 | NUR ---
NUTRITION FOLLOW-UP: Assess: 61 YO male admitted to CCU with acute respiratory failure with asthma exacerbation secondary to pneumonia. Pt remains intubated, NPO x 8 days. TF currently at 20 ml/hr, plan to advance to goal. PMHX: Asthma. DIET: NPO. LABS: BUN 34, Cr 0.56, Glu 166, ALT 69, Alb 3.3 MEDICATIONS: Reviewed. Solu-medrol, Fentanyl, Insulin. GI: No BM noted x 8 days. SKIN: No issues noted. ANTHROPOMETRICS: Wt: 81.5 kg, BMI 24.4 kg/m2, Admit wt: 82.2 kg. ESTIMATED NEEDS: VENT Calories: 1602-0676 kcal/day (20-25 kcal/kg BW) Protein: 120-145 g/day (1.5-1.8 g/kg BW) Fluids: 7288-5790 ml/day (25-30 ml/kcal) NUTRITION DIAGNOSIS: 1) Inadequate oral intake related to decreased ability to consume sufficient energy as evidenced by NPO/VENT status - PERSISTS. INTERVENTION: 1) Recommend Pulmocare enteral formula at 20 mL/hr, advance 10 ml every 12 hr. to goal rate 55 ml/hr to provide 1815 kcal, 76 g protein ( 100% calorie and 63 % protein needs). Signed orders placed in chart. 2) Once TF tolerated at goal rate, recommend adding 1 packet Prosoucre liquid protein 4X per day to provide a total of 120 g protein; meeting 100% protein needs. 3) If BG levels continue to be high, will consider using Glucerna TF formula MONITOR/EVALUATE: NPO/Vent status, TF tolerance/advance, BM, POC, labs, GI/nutrition status. Follow per high nutrition risk guidelines.
--- NOTE | 2017-04-21 11:10 | PCM.PNMED ---
Subjective Date of Service Apr 21, 2017 PULMONOLOGY/CRITICAL CARE PROGRESS NOTE Subjective Patient remains sedated and mechanically ventilated with no acute events overnight. He continues to show signs of agitation and is over breathing the ventilator at times. He will open his eyes spontaneously but is not following commands. Current drips: fentanyl 70mcg/hr and lorazepam 0.5mg/hr. Hospital/ intubation day #7. Subcutaneous heparin was held 04/20/17 for thrombocytopenia out of concern for HIT. Comprehensive ROS unable to be obtained in intubated sedated patient. Exam Vital Signs Vital Sign - Last Date Time Temp Pulse Resp B/P Pulse Ox O2 Delivery O2 Flow Rate FiO2 04/21/17 08:30 Ventilator 04/21/17 08:30 36.8 107 15 174/103 96 40 Intake and Output 04/20/17 04/20/17 04/21/17 Cumulative From/Thru 15:00 23:00 07:00 04/13/17 20:52 - 04/21/17 06:00 Intake Total 1249 ml 1207 ml 56717 ml Output Total 1100 ml 1250 ml 15389 ml Balance 149 ml -43 ml 3482 ml Intake Oral 0 ml 0 ml IV Total 972 ml 834 ml 77496 ml Tube Feeding 156 ml 253 ml 599 ml Tube Irrigant 121 ml 120 ml 592 ml Output Urine Total 1100 ml 1250 ml 37582 ml Gastric Drainage Total 1750 ml # Voids 1 # Bowel Movements 0 0 0 Exam General: Sedated and mechanically intubated. ETT in place. HEENT: Normocephalic, atraumatic. Pupils equal, round, and reactive to light. Moist mucosa. Cardiovascular: Regular rate and rhythm with no murmurs, rubs, or gallops appreciated Pulmonary: Symmetric chest rise with equal air entry and decreased breath sounds bilaterally. Scattered expiratory wheezes throughout. Abdomen: Soft, decreased bowel tones, non-distended Skin: Normal temperature, turgor, and texture Neurological: Sedated. Opening eyes spontaneously,not able to follow basic commands. IVs and Medications Medications Reviewed: Medications were reviewed in detail Lab and Diagnostics Laboratory Tests Test 04/20/17 12:50 04/20/17 13:08 04/21/17 03:40 04/21/17 07:24 Urine Color Straw (YELLOW) Urine Appearance Clear (CLEAR,HAZY) Urine pH 7.0 (5.0-8.0) Urine Specific [place] 1.015 (1.003-1.035) Urine Protein Negativemg/dL (NEG,TRACE) Urine Glucose (UA) Negativemg/dL (NEGATIVE) Urine Ketones Negativemg/dL (NEGATIVE) Urine Occult Blood Small (NEGATIVE) Urine Nitrite Negative (NEGATIVE) Urine Bilirubin Negative (NEGATIVE) Urine Urobilinogen Normalmg/dL (NORMAL) Urine Leukocyte Esterase Negative (NEGATIVE) Urine RBC 0-2/hpf (0-2) Urine WBC 0-5/hpf (0-5) Urine Epithelial Cells None/hpf (NONE-MOD) Urine Crystals None seen (NONE SEEN) Urine Bacteria None/hpf (NONE-FEW) Urine Hyaline Casts None/lpf (NONE) Urine Granular Casts None seen (NONE SEEN) Urine Waxy Casts None seen (NONE SEEN) Urine Red Blood Cell Casts None seen (NONE SEEN) Urine White Blood Cell Casts None seen (NONE SEEN) Urine Mucus Present (None Seen) Urine Trichomonas None seen (NONE SEEN) Urine Yeast None (NONE SEEN) Urinalysis Comment None Urine Culture Reflexed Not indicated White Blood Count 8.5th/mm3 (3.8-10.1) Red Blood Count 4.28mil/mm3 (4.40-5.80) Hemoglobin 12.9g/dL (13.8-17.2) Hematocrit 39.2% (41.0-50.0) Mean Corpuscular Volume 91.6fL (81-100) Mean Corpuscular Hemoglobin 30.1pg (27.0-35.0) Mean Corpuscular Hemoglobin Concent 32.9% (32.0-37.0) Red Cell Distribution Width 12.6% (12.3-15.4) Platelet Count 102bil/L (150-400) Neutrophils (%) (Auto) 91.0% (40-74) Lymphocytes (%) (Auto) 3.4% (14-46) Monocytes (%) (Auto) 4.8% (4-12) Eosinophils (%) (Auto) 0.1% (0-5) Basophils (%) (Auto) 0% (0-3) Sodium Level 139mEq/L (134-144) Potassium Level 4.7mEq/L (3.5-5.2) Chloride Level 102mEq/L (97-108) Carbon Dioxide Level 27mmol/L (18-29) Blood Urea Nitrogen 34mg/dL (8-27) Creatinine 0.56mg/dL (0.76-1.27) Estimat Glomerular Filtration Rate 158mL/min (>59) Glucose Level 166mg/dL (60-99) Calcium Level 8.6mg/dL (8.5-10.1) Phosphorus Level 4.0mg/dL (2.5-4.9) Magnesium Level 2.1mg/dL (1.6-2.6) Total Bilirubin 0.8mg/dL (0.0-1.2) Aspartate Amino Transf (AST/SGOT) 42U/L (0-50) Alanine Aminotransferase (ALT/SGPT) 69U/L (0-44) Alkaline Phosphatase 56U/L (25-160) Total Protein 5.7g/dL (6.4-8.4) Albumin 3.3g/dL (3.4-5.0) Theophylline Level 8.4ug/mL Rx (10.0-20.0) Result Diagram: 04/21/17 0340 04/21/17 0340 Microbiology 04/13/17 Blood Culture - No growth to date 04/13/17 Sputum Culture- Moderate normal pineda 04/14/17 Respiratory PCR negative 04/14/17 Streptococcus pneumoniae Ag Screen -Negative 04/20/17 Repeat Blood Cultures- pending 04/20/17 Fungal antibodies- pending 04/20/17 Heparin PF4 antibodies -pending X-Rays, CTs and MRIs (04/17/17) X-RAY CHEST ONE VIEW, PORTABLE IMPRESSION: Stable support equipment. Improved mild diffuse ground glass opacities since 04/15/17 suggesting improved atelectasis/aspiration, or pulmonary edema. Please correlate clinically. No new focal consolidation. Dictated and approved by: Jose Aparicio MD. on 04/17/2017 at 10:26 (04/20/17) X-RAY CHEST ONE VIEW, PORTABLE IMPRESSION: Endotracheal tube and nasogastric tube remain in expected positions. No acute pulmonary disease. Dictated by: Ángel Clinton M.D. on 04/20/2017 at 8:49 Approved by: Ángel Clinton M.D. on 04/20/2017 at 8:50 . 12-lead ECG Sinus Tachycardia with nonspecific intraventricular conduction delay. Additional Diagnostics DateTimeAnalyzed 04:57:00 -_ pH ____7.454 - 7.350 7.450 pCO2 ___42.9__ -mmHg 35.0 45.0 pO2 101 -mmHg 69.0 116 HCO3- ___29.7__ -mmol/L 22.0 26.0 ABE ____5.5__ -mmol/L -2.0 2.0 Assessment & Plan 61 year old male with a history of asthma who presented to the ED on 04/13 after he was intubated in the field for respiratory distress and admitted to the CCU for status asthmaticus, refractory to all inhaled medications. Hospital and intubation day #7. Acute hypercapnic respiratory failure. Present on admission. Resolving. - Secondary to status asthmaticus. Patient is tolerating Albuterol inhaler at 4 puffs q3h. Bronchospasm with movement for routine care has improved but patient continues to over breathe the ventilator when he becomes anxious or agitated. Well controlled with lorazepamr, titrated down to 0.5mg, - Current vent settings: Volume control with tidal volume of 550, rate of 15, PEEP of 10, pressure support 12. - Continue fentanyl and stop lorazepam. Start Dexmedetomidine - Albuterol 4 puffs via inhaler Q2 hours - IV methyprednisolone, 80mg q12h - Stop Aminophylline infusion, initial theophylline level within therapeutic range with repeat slightly below. Unlikely providing added benefit at this time. Acute status asthmaticus. Present on admission. Active - Pt presented with severe asthma exacerbation refractory to beta agonist treatment and BiPAP, intubated on admission. - Continue steroids, inhalers and ventilator management as above. Possible community acquired pneumonia, acute. Present on admission. Resolved - Infectious workup thus far unremarkable including negative sputum/blood cultures and negative urine antigens. WBC within normal limits since 04/16. Now with left shift and repeat blood cultures pending as well as fungal antibodies. Pt received ceftriaxone and azithromycin 04/13-04/16. -CXR showed mild patchy bilateral perihilar opacity at time of admission. Repeat chest xrays unimpressive. - Repeat CXR, CBC, procalcitonin and lactic acid in the morning - Will hold off on empiric antibiotics, pending repeat culture results. Hyperglycemia, acute. Present on admission. Active - Likely secondary to stress dose steroids, no prior history of diabetes or hyperglycemia. - Continue management per primary team: Lantus 25Uqhs, subq regular correctional insulin - Bedside glucose checks and repeat CMP in the morning. Acute thrombocytopenia, not present on admission. Active. - Platelets down to 102 from 169 at admission. Heparin held as of yesterday, which was day 7 of heparin. - HIT antibodies, pending. GI Prophylaxis: H2 carlo VTE Mechanical Devices: Intermittant Pneumatic CD Resuscitation Status: CPR: Attempt Resuscitation Arabella Michaels DO Apr 21, 2017 09:38 which was day 7 of heparin. - 4T's score, - Heparin PG4 antibodies, pending. GI Prophylaxis: H2 carlo VTE Mechanical Devices: Intermittant Pneumatic CD Resuscitation Status: CPR: Attempt Resuscitation Arabella Michaels DO Apr 21, 2017 09:38 Arabella Michaels DO Apr 21, 2017 09:38
--- NOTE | 2017-04-21 11:13 | DRSVH ---
PROCEDURE: X-RAY CHEST ONE VIEW, PORTABLE ([id number]) INDICATIONS: fu intubated pt TECHNIQUE: One view of the chest was acquired. COMPARISON: [facility], CR, XR CHEST 1VW (PORTABLE), 04/20/2017, 3:37. FINDINGS: Surgical changes and devices: Stable position of ETT, right PICC and nasogastric tube tip traverses t he GE junction. Lungs and pleura: No pleural effusions or pneumothorax. Lungs are clear. Mediastinum: Mediastinal contours appear normal. Heart size is normal. Bones and chest wall: No suspicious bony lesions. Overlying soft tissues appear unremarkable. IMPRESSION: Stable support lines and tubes no acute cardiopulmonary process identified. Dictated by: Maximiliano Burns RRA Interpreted: Berkley Green MD on 04/21/2017 at 9:47 Approved by: Berkley Green M.D. on 04/21/2017 at 11:11
--- NOTE | 2017-04-21 11:36 | PCM.PNMED ---
Subjective Date of Service Apr 21, 2017 Subjective 61 yo man with history of severe persistent asthma admitted 04/13 in respiratory failure due to status asthmaticus. Initially was difficult to ventilate with high airway pressures requiring paralysis. More recently, his airways resistance has improved and he is tolerating weaning of his sedation and PEEP. Sedated on vent No response to loud voice or touch No critical events over noc Exam Vital Signs Vital Sign - Last Date Time Temp Pulse Resp B/P Pulse Ox O2 Delivery O2 Flow Rate FiO2 04/21/17 08:30 Ventilator 04/21/17 08:30 36.8 107 15 174/103 96 40 Intake and Output 04/20/17 04/20/17 04/21/17 Cumulative From/Thru 15:00 23:00 07:00 04/13/17 20:52 - 04/21/17 06:00 Intake Total 1249 ml 1207 ml 41268 ml Output Total 1100 ml 1250 ml 27536 ml Balance 149 ml -43 ml 3482 ml Intake Oral 0 ml 0 ml IV Total 972 ml 834 ml 36591 ml Tube Feeding 156 ml 253 ml 599 ml Tube Irrigant 121 ml 120 ml 592 ml Output Urine Total 1100 ml 1250 ml 36621 ml Gastric Drainage Total 1750 ml # Voids 1 # Bowel Movements 0 0 0 Exam WDWN man orally intubated in NAD, RASS - 3 Mouth Orally intubated, normal visible mucosa Neck No LEONELA, crepitus, trachea midline Lungs Slightly diminished air movement rare end exp wheezes at Rt base RRR No m/g/r Abd soft, rare BTs Ext Warm, no edema, pulses 2+ all 4 Neuro No spont movements or eye openings. Lab and Diagnostics Result Diagram: 04/21/17 0340 04/21/17 0340 Microbiology 04/13/17 Blood Culture - No growth to date 04/13/17 Sputum Culture- Moderate normal pineda 04/14/17 Respiratory PCR negative 04/14/17 Streptococcus pneumoniae Ag Screen -Negative 04/20/17 Repeat Blood Cultures- pending 04/20/17 Fungal antibodies- pending 04/20/17 Heparin PF4 antibodies -pending X-Rays, CTs and MRIs (04/17/17) X-RAY CHEST ONE VIEW, PORTABLE IMPRESSION: Stable support equipment. Improved mild diffuse ground glass opacities since 04/15/17 suggesting improved atelectasis/aspiration, or pulmonary edema. Please correlate clinically. No new focal consolidation. Dictated and approved by: Jose Aparicio MD. on 04/17/2017 at 10:26 (04/20/17) X-RAY CHEST ONE VIEW, PORTABLE IMPRESSION: Endotracheal tube and nasogastric tube remain in expected positions. No acute pulmonary disease. Dictated by: Ángel Clinton M.D. on 04/20/2017 at 8:49 Approved by: Ángel Clinton M.D. on 04/20/2017 at 8:50 . 12-lead ECG Sinus Tachycardia with nonspecific intraventricular conduction delay. Additional Diagnostics DateTimeAnalyzed 04:57:00 -_ pH ____7.454 - 7.350 7.450 pCO2 ___42.9__ -mmHg 35.0 45.0 pO2 101 -mmHg 69.0 116 HCO3- ___29.7__ -mmol/L 22.0 26.0 ABE ____5.5__ -mmol/L -2.0 2.0 Assessment & Plan 61 year old male with a history of asthma who presented to the ED on 04/13 after he was intubated in the field for respiratory distress and admitted to the CCU for status asthmaticus. IMP Status asthmaticus with acute respiratory failure Now appears to making good progress towards vent liberation with stable P:F and improved mechanics Doubt aminophylline is contributing much to his improvement and will stop this now, Can continue on MARTY and steroids Anxiety Also improved although is still on lorazepam and fentanyl gtts. Will change to dexmedetomidine in anticipation of extubation within next 24 hours Hyperglycemia Improving with decrease in steroids REC DC aminoph gtt Wean lorazepam and replace with precedex Decrease PEEP to 10 and wean q 1 hour until at 5 Change to AC VC mode and decrease rate to 10 Serial labs Primary team to manage hyperglycemia GI Prophylaxis: H2 carlo VTE Prophylaxis: Sub-Q Heparin (Unfractionated) VTE Mechanical Devices: Intermittant Pneumatic CD Resuscitation Status: CPR: Attempt Resuscitation Manuel Rodrigez MD Apr 21, 2017 11:36 - Repeat CXR, CBC, procalcitonin and lactic acid in the morning - Will hold off on empiric antibiotics, pending repeat culture results. Hyperglycemia, acute. Present on admission. Active - Likely secondary to stress dose steroids, no prior history of diabetes or hyperglycemia. - Continue management per primary team: Lantus 25Uqhs, subq regular correctional insulin - Bedside glucose checks and repeat CMP in the morning. Hypertension, not present on admission. Active - Patient without prior history of hypertension per his . Not on antihypertensive medications at baseline. Initially hypotensive which was attributed to systemic inflammatory response secondary to possible pneumonia. Remained hypotensive and bradycardic and propofol discontinued. - BP now 150-170 systolic 90-100 diastolic. Acute thrombocytopenia, not present on admission. Active. - Platelets down to 102 from 169 at admission. Heparin held as of yesterday, which was day 7 of heparin. - 4T's score, - Heparin PG4 antibodies, pending. GI Prophylaxis: H2 carlo VTE Prophylaxis: Sub-Q Heparin (Unfractionated) VTE Mechanical Devices: Intermittant Pneumatic CD Resuscitation Status: CPR: Attempt Resuscitation Manuel Rodrigez MD Apr 21, 2017 11:36
[2017-04-21] MEDS: AMINOPHYLLINE IV SCH (11:38)
[2017-04-21] MEDS: fentaNYL 2,500 mCg/250 mL 2,500 MCG in IV Premix 1 EACH IV SCH (11:38)
[2017-04-21] MEDS: DEXTROSE 5% IV SCH (11:38)
[2017-04-21] MEDS: LORazepam 100 mg/100 mL Drip IV PRN ×2 (12:45)
[2017-04-21] MEDS ORDERED: Dexmedetomidine Inj 400 MCG in 0.9% Sodium Chloride 100 ML IV SCH (14:12)
[2017-04-21] MEDS ORDERED: Dexmedetomidine 400 mCg/100 mL NS Premix IV ONE (14:30)
--- NOTE | 2017-04-21 15:05 | NUR ---
P: Anxiety I: Precedex gtt started 0.5mcqs/kg/min. Ativan gtt on standby. Fentanyl gtt remains at 70mcqs. Weaning down peep pressure with the goal of possible extubation tomorrow. Tube feeding increased to 30cc/hr per new order. Turned Q 2 hours. SCD's on . Shampoo,bath, chlora, shave and linen change completed. Some bolus of ativan and fentanyl needed. Afebrile. NSR/ST and BP elevated when pt anxious. With Precedex gtt HR 74 and BP 116/64. Skin intact and looks good. Peep down from 13 to 9 without difficulty so far. Attempting to get it down to 5 by tomorrow. here this am for rounds and updated on pt's condition and plan of care. E: Stable S: Restraints on for pt safety. Frequent rounding.
[2017-04-21] MEDS: Insulin GLARgine 100 Unit/mL Syringe SUBQ SCH (21:36)
[2017-04-22] VITALS (13 sets, daily range): BP systolic 126–172; BP diastolic 67–96; PULSE 74–103; RESP 13–20; O2SAT 92–98
[2017-04-22] MEDS: Insulin Human REGular 300 Unit/3 mL Inj SUBQ SCH ×4 (02:16→20:30)
[2017-04-22 03:37] LABS: BASOPHILS % (AUTO) 0 % (0-3); EOSINOPHILS % (AUTO) 0 % (0-5); MONOCYTES % (AUTO) 2.2 % (4-12); Mean Corpuscular Hemoglobin 30.3 pg (27.0-35.0); Mean Corpuscular Volume 89.6 fL (81-100); Platelet Count 105 bil/L (150-400)
[2017-04-22] MEDS: Chlorhexidine 0.12% 15 mL Oral Solution MT SCH ×2 (04:18→07:25)
--- NOTE | 2017-04-22 04:19 | NUR ---
weaning sedation/peep fentanyl gtt decreased from 50mcg/hr to 20mcg/hr, precedex decreased from 0.2mcg/kg/hr to 0.1mcg/kg/hr t/o shift, pt opens eyes to command, intermittent leg movement seen but not to command, perrla, vent at .40 fio2 and peep weaned from 8 down to 6 per RT, sats upper 90's, resp rate=12-15/12, ls-decreased bases, sml amt of thick creamy sputum per ett, oral care done, hob up, suzan tf well with minimal residuals, no bm, bt present, abd snt, md aware hs bg=72, order received to give 12 units of lantus instead of 25units, bg at 2330=92 and bg at 3478=796, large uop per f/c, tele- sr, hr 60-80's, bp stable, afebrile, scd's on, continuous rotation on, right picc intact, see ccu flow sheet, plan: wean peep to 5 per orders, anticipate pressure support trial
--- NOTE | 2017-04-22 04:28 | ABG ---
DateTimeAnalyzed 04:22:00 -_ pH ____7.473 - 7.350 7.450 pCO2 ___37.0__ -mmHg 35.0 45.0 pO2 ___97.4__ -mmHg 69.0 116 HCO3- ___26.8__ -mmol/L 22.0 26.0 ABE ____3.6__ -mmol/L -2.0 2.0 tHb ___13.4__ -g/dL O2Hb ___96.1__ -% COHb ____1.0__ -% MetHb ____0.9__ -% sO2 ___98.0__ -% 25.0 FIO2 ___40.0__ -% PEEP ____6.0__ -cmH2O Set_RR ___15.0__ -b/min Vt __550.0__ -L Drawn By AF - Date/Time Notified____ 04:28:00 -_ Spontaneous_RR ___21.0__ -b/min Oxygen Device 1 VENTILATOR - Notified By AF - B 761 -mmHg tO2 ___18.3__ -Vol% Justice test _Positive -
[2017-04-22] MEDS: Albuterol HFA 200 Puff Inhaler (Vent Pts Only) INHALATION SCH ×4 (04:31→10:54)
[2017-04-22 04:50] LABS: Magnesium 2.2 mg/dL (1.6-2.6); Phosphorus 4.7 mg/dL (2.5-4.9)
[2017-04-22] MEDS: Dexmedetomidine 400 mCg/100 mL 400 MCG in IV Premix 1 EACH IV SCH (05:48)
[2017-04-22] MEDS: MethylprednisoLONE Sodium Succinate 62.5 mg/mL 2 mL Inj IVPUSH SCH ×2 (07:24→21:06)
[2017-04-22] MEDS: Pantoprazole 4 mg/mL 10 mL Inj IVPUSH SCH (08:00)
--- NOTE | 2017-04-22 09:28 | PCM.PNMED ---
Subjective Date of Service Apr 22, 2017 PULMONOLOGY/CRITICAL CARE PROGRESS NOTE . Subjective Patient intubated and mechanically ventilated with no acute events overnight. All sedation off this morning for a pressure support trial. He opens his eyes to voice and furrows his brow but he is not following commands. Hospital/ intubation day #8. Subcutaneous heparin was held 04/20/17 for thrombocytopenia out of concern for HIT with antibody results still pending. Exam Vital Signs Vital Sign - Last Date Time Temp Pulse Resp B/P Pulse Ox O2 Delivery O2 Flow Rate FiO2 04/22/17 08:15 88 140/82 98 40 04/22/17 07:13 Ventilator 04/22/17 07:12 37.3 14 Intake and Output 04/21/17 04/21/17 04/22/17 Cumulative From/Thru 15:00 23:00 07:00 04/13/17 20:52 - 04/22/17 05:35 Intake Total 705 ml 845 ml 19765 ml Output Total 1200 ml 1850 ml 02871 ml Balance -495 ml -1005 ml 1982 ml Intake Oral 0 ml IV Total 330 ml 222 ml 10875 ml Tube Feeding 295 ml 443 ml 1337 ml Tube Irrigant 80 ml 180 ml 852 ml Output Urine Total 1200 ml 1850 ml 42920 ml Gastric Drainage Total 1750 ml # Voids 1 # Bowel Movements 0 0 Exam General: Sedated and mechanically intubated. ETT in place. HEENT: Normocephalic, atraumatic. Pupils equal, round, and reactive to light. Moist mucosa. Cardiovascular: Regular rate and rhythm with no murmurs, rubs, or gallops appreciated Pulmonary: Symmetric chest rise with equal air entry, lung sounds are coarse with diffuse mild expiratory wheezing Abdomen: Soft, decreased bowel tones, non-distended Skin: Normal temperature, turgor, and texture Neurological: Sedated. Opens eyes to voice,not able to follow basic commands. IVs and Medications Medications Reviewed: Medications were reviewed in detail Lab and Diagnostics Result Diagram: 04/22/1732904/22/17329 Microbiology 04/13/17 Blood Culture - No growth to date 04/13/17 Sputum Culture- Moderate normal pineda 04/14/17 Respiratory PCR negative 04/14/17 Streptococcus pneumoniae Ag Screen -Negative 04/20/17 Repeat Blood Cultures- pending 04/20/17 Fungal antibodies- pending 04/20/17 Heparin PF4 antibodies -pending X-Rays, CTs and MRIs (04/17/17) X-RAY CHEST ONE VIEW, PORTABLE IMPRESSION: Stable support equipment. Improved mild diffuse ground glass opacities since 04/15/17 suggesting improved atelectasis/aspiration, or pulmonary edema. Please correlate clinically. No new focal consolidation. Dictated and approved by: Jose Aparicio MD. on 04/17/2017 at 10:26 (04/20/17) X-RAY CHEST ONE VIEW, PORTABLE IMPRESSION: Endotracheal tube and nasogastric tube remain in expected positions. No acute pulmonary disease. Dictated by: Ángel Clinton M.D. on 04/20/2017 at 8:49 Approved by: Ángel Clinton M.D. on 04/20/2017 at 8:50 . 12-lead ECG Sinus Tachycardia with nonspecific intraventricular conduction delay. Additional Diagnostics DateTimeAnalyzed 04:57:00 -_ pH ____7.454 - 7.350 7.450 pCO2 ___42.9__ -mmHg 35.0 45.0 pO2 101 -mmHg 69.0 116 HCO3- ___29.7__ -mmol/L 22.0 26.0 ABE ____5.5__ -mmol/L -2.0 2.0 Assessment & Plan 61 year old male with a history of asthma who presented to the ED on 04/13 after he was intubated in the field for respiratory distress and admitted to the CCU for status asthmaticus, refractory to all inhaled medications. Hospital and intubation day #8. Acute hypercapnic respiratory failure. Present on admission. Resolving. - Secondary to status asthmaticus. Patient is tolerating Albuterol inhaler at 8 puffs q4h without bronchospasm. Sedation currently off for pressure support trial with extubation likely this morning when he is more awake. - Aminophylline discontinued on 04/21 - Continue Albuterol 8 puffs via inhaler q4h and IV methylprednisolone, 80mg q12h Acute status asthmaticus. Present on admission. Resolved - Pt presented with severe asthma exacerbation refractory to beta agonist treatment and BiPAP, intubated on admission. - Continue steroids, inhalers and ventilator management as above. Possible community acquired pneumonia, acute. Present on admission. Resolved - Infectious workup thus far unremarkable including negative sputum/blood cultures and negative urine antigens. WBC within normal limits since 04/16. Now with left shift, repeat blood cultures are negative. Fungal antibodies still pending. Pt received ceftriaxone and azithromycin 04/13-04/16. -CXR showed mild patchy bilateral perihilar opacity at time of admission. Repeat chest xrays unimpressive. - Repeat CXR, CBC Hyperglycemia, acute. Present on admission. Active - Likely secondary to stress dose steroids, no prior history of diabetes or hyperglycemia. - Continue management per primary team - Bedside glucose checks and repeat CMP in the morning. Acute thrombocytopenia, not present on admission. Active. - Platelets down to 102 from 169 at admission. Heparin held as of 04/21, which was day 7 of heparin. - HIT antibodies, still pending. - Fondaparinux for DVT prophylaxis Pain Evaluation: Adequate Pain Control GI Prophylaxis: H2 carlo VTE Mechanical Devices: Intermittant Pneumatic CD Resuscitation Status: CPR: Attempt Resuscitation Arabella Michaels DO Apr 22, 2017 09:28 Arabella Michaels DO Apr 22, 2017 09:28
--- NOTE | 2017-04-22 10:31 | DRSVH ---
PROCEDURE: X-RAY CHEST ONE VIEW, PORTABLE ([id number]) INDICATIONS: respiratory failure TECHNIQUE: One view of the chest was acquired. COMPARISON: [facility], CR, XR CHEST 1VW (PORTABLE), 04/20/2017, 3:37. [facility], CR, XR CHEST 1VW (PORTABLE), 04/21/2017, 5:35. FINDINGS: Surgical changes and devices: ETT tip projected 5.7 cm above the vlad. Nasogastric tube traverses the GE junction. Right PICC tip projected over the cavoatrial junction. Lungs and pleura: No pleural effusions or pneumothorax. Lungs are clear. Mediastinum: Mediastinal contours appear normal. Heart size is normal. Bones and chest wall: No suspicious bony lesions. Overlying soft tissues appear unremarkable. IMPRESSION: No acute cardiopulmonary disease. Dictated by: Maximiliano Burns [facility] Interpreted: Lilly Morrison MD on 04/22/2017 at 10:18 Approved by: Lilly Morrison MD, PhD on 04/22/2017 at 10:28
[2017-04-22] MEDS: Albuterol 2.5 mg/3 mL Inhalation Solution NEB SCH ×3 (11:05→22:26)
[2017-04-22] MEDS ORDERED: Albuterol 2.5 mg/3 mL Inhalation Solution NEB PRN (11:05)
[2017-04-22] MEDS ORDERED: Albuterol 2.5 mg/3 mL Inhalation Solution NEB ONE (11:26)
--- NOTE | 2017-04-22 11:54 | PCM.PNMED ---
Subjective Date of Service Apr 22, 2017 Subjective Pt is a 61 year old male with a history of asthma who presents to the ED via EMS in respiratory distress, and was intubated in the ED. Admitted for status asthmaticus to the CCU. Course has been complicated by airways which are non- specifically extremely reactive to all inhaled compounds, which limits therapeutic options. Hospital day 8. Nurse reports no acute events overnight. Patient seen and examined. Opens eyes to voice. is at bedside. Patient has been mechanically ventilated for 8 days. TPN is in place for nutrition. Patient has had good urine output into romero. Patient has not had a bowel movement Exam Vital Signs Vital Sign - Last Date Time Temp Pulse Resp B/P Pulse Ox O2 Delivery O2 Flow Rate FiO2 04/22/17 04:31 68 132/71 97 40 04/22/17 04:00 Ventilator 04/22/17 04:00 37.1 15 Intake and Output 04/21/17 04/21/17 04/22/17 Cumulative From/Thru 15:00 23:00 07:00 04/13/17 20:52 - 04/22/17 05:35 Intake Total 705 ml 845 ml 90151 ml Output Total 1200 ml 1850 ml 46320 ml Balance -495 ml -1005 ml 1982 ml Intake Oral 0 ml IV Total 330 ml 222 ml 19769 ml Tube Feeding 295 ml 443 ml 1337 ml Tube Irrigant 80 ml 180 ml 852 ml Output Urine Total 1200 ml 1850 ml 81313 ml Gastric Drainage Total 1750 ml # Voids 1 # Bowel Movements 0 0 Exam Constitutional: Sedated. Mechanically Ventilated. No acute distress. Head: Normocephalic and atraumatic. Eyes: Pupil equal round and reactive. [place] conjunctiva Heart: IVs and Medications Medications Reviewed: Medications were reviewed in detail Lab and Diagnostics Item Value Date Time Red Blood Count 4.42 mil/mm3 04/22/17 0330 Mean Corpuscular Volume 89.6 fL 04/22/17 0330 Mean Corpuscular Hemoglobin 30.3 pg 04/22/17 0330 Mean Corpuscular Hemoglobin Concent 33.8 % 04/22/17 0330 Red Cell Distribution Width 12.4 % 04/22/17 0330 Neutrophils (%) (Auto) 95.0 % H 04/22/17 0330 Lymphocytes (%) (Auto) 2.2 % L 04/22/17 0330 Monocytes (%) (Auto) 2.2 % L 04/22/17 0330 Estimat Glomerular Filtration Rate 158 mL/min 04/22/17 0330 Calcium Level 8.7 mg/dL 04/22/17 0330 Phosphorus Level 4.7 mg/dL 04/22/17 0330 Magnesium Level 2.2 mg/dL 04/22/17 0330 Total Bilirubin 1.0 mg/dL 04/22/17 0330 Aspartate Amino Transf (AST/SGOT) 47 U/L 04/22/17 0330 Alanine Aminotransferase (ALT/SGPT) 79 U/L H 04/22/17 0330 Alkaline Phosphatase 62 U/L 04/22/17 0330 Total Protein 5.7 g/dL L 04/22/17 0330 Albumin 3.2 g/dL L 04/22/17 0330 Theophylline Level 8.4 ug/mL Rx L 04/21/17 0724 Result Diagram: 04/22/17 0330 04/22/17 0330 Microbiology 04/13/17 Blood Culture - No growth to date 04/13/17 Sputum Culture- Moderate normal pineda 04/14/17 Respiratory PCR negative 04/14/17 Streptococcus pneumoniae Ag Screen -Negative 04/20/17 Repeat Blood Cultures- pending 04/20/17 Fungal antibodies- pending 04/20/17 Heparin PF4 antibodies -pending X-Rays, CTs and MRIs (04/17/17) X-RAY CHEST ONE VIEW, PORTABLE IMPRESSION: Stable support equipment. Improved mild diffuse ground glass opacities since 04/15/17 suggesting improved atelectasis/aspiration, or pulmonary edema. Please correlate clinically. No new focal consolidation. Dictated and approved by: Jose Aparicio MD. on 04/17/2017 at 10:26 (04/20/17) X-RAY CHEST ONE VIEW, PORTABLE IMPRESSION: Endotracheal tube and nasogastric tube remain in expected positions. No acute pulmonary disease. Dictated by: Ángel Clinton M.D. on 04/20/2017 at 8:49 Approved by: Ángel Clinton M.D. on 04/20/2017 at 8:50 . 12-lead ECG Sinus Tachycardia with nonspecific intraventricular conduction delay. Additional Diagnostics DateTimeAnalyzed 04:57:00 -_ pH ____7.454 - 7.350 7.450 pCO2 ___42.9__ -mmHg 35.0 45.0 pO2 101 -mmHg 69.0 116 HCO3- ___29.7__ -mmol/L 22.0 26.0 ABE ____5.5__ -mmol/L -2.0 2.0 Assessment & Plan Pt is a 61 year old male with a history of asthma who presents to the ED via EMS in respiratory distress, and was intubated in the ED. Admitted for status asthmaticus to the CCU. Course has been complicated by airways which are non- specifically extremely reactive to all inhaled compounds, which limits therapeutic options. Patient will be weaned from sedation today for an attempt at extubation later today (04/22) Acute hypercapnic respiratory failure. Present on admission. Resolving. - Initial ABG: pH 6.96, pCO2 105, bicarb 22.5, pO2 405. Secondary to status asthmaticus. - Mechanical ventilation managed by ICU team. Plan for sedation weaning and extubation attempt (04/22) - Stop fentanyl gtt for sedation. - Stop Lorazepam IV during plan for extubation. Acute status asthmaticus. Present on admission. Active - Pt presents with severe asthma exacerbation refractory to beta agonist treatment and BiPAP, intubated on admission. - Attempt weaning mechanical ventilation - Duoneb q4h currently held as this causes bronchospasms - Albuterol inhaler 4 puffs q2h - Stop Aminophylline - Continue Solu Medrol currently at 80 mg q6h. ICU team managing. Acute respiratory acidosis. Present on admission. Improving - Secondary to status asthmaticus. - Will continue to monitor with ABGs Acute sepsis. Present on admission. Resolved - Secondary to CAP. -D5NS @ 80ml/hr Lactic acidosis, acute. Present on admission. Resolved - Likely secondary to pneumonia on presentation. - Continue to monitor as needed or if patient spikes a temp. Community acquired pneumonia, acute. Present on admission. Resolved - no longer requiring antibiotics. -CXR showed mild patchy bilateral perihilar opacity. - Strep pneumo and Legionella urine antigens negative - Sputum and blood cultures no growth after 2 days - MRSA screen negative Hyperglycemia, acute. Present on admission. - Pt has no prior history of diabetes. Likely secondary to high dose steroids. - Continue Lantus 25U QHS - Recheck BG in AM with CMP Diet: - TPN started 04/17 - Monitoring CMP, AM Mg - Bowel regimen as needed - Antiemetic as needed - Famotidine for GI prophylaxis Disposition: Patient is still showing signs of severe status asthmaticus. We have started TPN therapy. Length of stay is uncertain, patient remains in serious medical condition, and although patient extubated and improving, still requires continued medical care with no definitive end date in sight. GI Prophylaxis: H2 carlo VTE Prophylaxis: Sub-Q Heparin (Unfractionated) VTE Mechanical Devices: Intermittant Pneumatic CD Resuscitation Status: CPR: Attempt Resuscitation Attending Statement The patient was seen and examined together with Dr. Carter on 04/22/2017 and I agree with the history, exam and plan as outlined in the note above. . Coleman Carter DO Apr 22, 2017 06:55 Cody Gentile MD Apr 24, 2017 19:06
[2017-04-22] MEDS ORDERED: hydrALAZINE 20 mg/mL Inj IV PRN ×2 (14:55→20:55)
--- NOTE | 2017-04-22 15:09 | NUR ---
Cardiac/cognition/respiratory Hypertensive, 170s/100s. Continues in SR/ST per environmental monitoring technician. Somnolent, opens eyes to verbal stimuli. Unable to verbalize needs or move extremities on command. Lung whitaker decreased. Small amount of white to clear oral secretions with yaunker suction. Sp02 >92% on 4L per NC. MD notified of elevated pressure, scheduled metoprolol and PRN hydralazine ordered. Will continue to monitor.
[2017-04-22] MEDS: MeTOProlol 1 mg/mL 5 mL Inj IVPUSH SCH ×2 (15:10→21:06)
[2017-04-22] MEDS ORDERED: HYDROmorphone 0.5 mg/0.5 mL iSecure Syringe IVPUSH PRN (16:10)
[2017-04-22] MEDS: Insulin GLARgine 100 Unit/mL Syringe SUBQ SCH (21:00)
[2017-04-23] VITALS (15 sets, daily range): BP systolic 114–155; BP diastolic 72–87; PULSE 64–81; RESP 12–18; O2SAT 93–100
[2017-04-23] MEDS: Albuterol 2.5 mg/3 mL Inhalation Solution NEB SCH ×7 (01:36→20:26)
[2017-04-23] MEDS: Insulin Human REGular 300 Unit/3 mL Inj SUBQ SCH ×4 (02:30→19:45)
[2017-04-23] MEDS: MeTOProlol 1 mg/mL 5 mL Inj IVPUSH SCH ×3 (02:42→13:32)
[2017-04-23 05:20] LABS: BASOPHILS % (AUTO) 0 % (0-3); EOSINOPHILS % (AUTO) 0 % (0-5); MONOCYTES % (AUTO) 5.4 % (4-12); Mean Corpuscular Hemoglobin 30.5 pg (27.0-35.0); Mean Corpuscular Volume 88.1 fL (81-100); NEUTROPHILS % (AUTO) 90.2 % (40-74); Platelet Count 141 bil/L (150-400)
[2017-04-23] MEDS: Dexmedetomidine 400 mCg/100 mL 400 MCG in IV Premix 1 EACH IV SCH (05:40)
[2017-04-23] MEDS: Pantoprazole 4 mg/mL 10 mL Inj IVPUSH SCH (07:44)
[2017-04-23] MEDS: MethylprednisoLONE Sodium Succinate 62.5 mg/mL 2 mL Inj IVPUSH SCH (07:44)
--- NOTE | 2017-04-23 08:26 | PCM.PNMED ---
Subjective Date of Service Apr 23, 2017 PULMONOLOGY/CRITICAL CARE PROGRESS NOTE . Subjective Patient is doing well this morning with no acute events overnight. Successfully extubated yesterday (04/22) afternoon. He is lethargic with slurred speech but easily awakened, communicating appropriately and able to follow commands. Denies pain or shortness of breath. Exam Vital Signs Vital Sign - Last Date Time Temp Pulse Resp B/P Pulse Ox O2 Delivery O2 Flow Rate FiO2 04/23/17 07:37 71 16 98 Nasal Cannula 4.00 04/23/17 04:30 36.8 151/87 04/22/17 11:00 40 Intake and Output 04/22/17 04/22/17 04/23/17 Cumulative From/Thru 15:00 23:00 07:00 04/13/17 20:52 - 04/23/17 06:41 Intake Total 192 ml 157 ml 56808 ml Output Total 1300 ml 1700 ml 35570 ml Balance -1108 ml -1543 ml -669 ml Intake Oral 0 ml IV Total 110 ml 157 ml 71174 ml Tube Feeding 42 ml 1379 ml Tube Irrigant 40 ml 892 ml Output Urine Total 1300 ml 1700 ml 51871 ml Gastric Drainage Total 1750 ml # Voids 1 # Bowel Movements 0 Exam General: Awake and appropriately interactive in no acute distress. HEENT: Normocephalic, atraumatic. Pupils equal, round, and reactive to light. Oral mucosa dry. Cardiovascular: Regular rate and rhythm with no murmurs, rubs, or gallops appreciated Pulmonary: Normal respiratory effort with no use of accessory muscles. Nasal cannula in place. Normal respiratory effort coarse lung sounds throughout, mild expiratory wheezes on the left. Abdomen: Soft, decreased bowel tones, non-distended Skin: Normal temperature, turgor, and texture Neurological: Lethargic with slurred speech but communicating appropriately and able to follow commands IVs and Medications Medications Reviewed: Medications were reviewed in detail Lab and Diagnostics Laboratory Tests Test 04/23/17 05:04 White Blood Count 11.8th/mm3 (3.8-10.1) Red Blood Count 4.95mil/mm3 (4.40-5.80) Hemoglobin 15.1g/dL (13.8-17.2) Hematocrit 43.6% (41.0-50.0) Mean Corpuscular Volume 88.1fL (81-100) Mean Corpuscular Hemoglobin 30.5pg (27.0-35.0) Mean Corpuscular Hemoglobin Concent 34.6% (32.0-37.0) Red Cell Distribution Width 12.8% (12.3-15.4) Platelet Count 141bil/L (150-400) Neutrophils (%) (Auto) 90.2% (40-74) Lymphocytes (%) (Auto) 4.1% (14-46) Monocytes (%) (Auto) 5.4% (4-12) Eosinophils (%) (Auto) 0% (0-5) Basophils (%) (Auto) 0% (0-3) Sodium Level 139mEq/L (134-144) Potassium Level 4.3mEq/L (3.5-5.2) Chloride Level 102mEq/L (97-108) Carbon Dioxide Level 23mmol/L (18-29) Blood Urea Nitrogen 32mg/dL (8-27) Creatinine 0.69mg/dL (0.76-1.27) Estimat Glomerular Filtration Rate 124mL/min (>59) Glucose Level 146mg/dL (60-99) Calcium Level 9.1mg/dL (8.5-10.1) Total Bilirubin 0.9mg/dL (0.0-1.2) Aspartate Amino Transf (AST/SGOT) 46U/L (0-50) Alanine Aminotransferase (ALT/SGPT) 76U/L (0-44) Alkaline Phosphatase 69U/L (25-160) Total Protein 6.3g/dL (6.4-8.4) Albumin 3.5g/dL (3.4-5.0) Result Diagram: 04/23/17 0504 04/23/17 0504 Microbiology 04/13/17 Blood Culture - No growth to date 04/14/17 Respiratory PCR negative 04/14/17 Streptococcus pneumoniae Ag Screen -Negative 04/19/17 Sputum Culture- Staphylococcus Aureus; Aspergillus Fumigatus 04/20/17 Repeat Blood Cultures- No growth to date 04/20/17 Fungal antibodies- Negative 04/20/17 Heparin PF4 antibodies -pending X-Rays, CTs and MRIs (04/17/17) X-RAY CHEST ONE VIEW, PORTABLE IMPRESSION: Stable support equipment. Improved mild diffuse ground glass opacities since 04/15/17 suggesting improved atelectasis/aspiration, or pulmonary edema. Please correlate clinically. No new focal consolidation. Dictated and approved by: Jose Aparicio MD. on 04/17/2017 at 10:26 (04/20/17) X-RAY CHEST ONE VIEW, PORTABLE IMPRESSION: Endotracheal tube and nasogastric tube remain in expected positions. No acute pulmonary disease. Dictated by: Ángel Clinton M.D. on 04/20/2017 at 8:49 Approved by: Ángel Clinton M.D. on 04/20/2017 at 8:50 . 12-lead ECG Sinus Tachycardia with nonspecific intraventricular conduction delay. Additional Diagnostics DateTimeAnalyzed 04:57:00 -_ pH ____7.454 - 7.350 7.450 pCO2 ___42.9__ -mmHg 35.0 45.0 pO2 101 -mmHg 69.0 116 HCO3- ___29.7__ -mmol/L 22.0 26.0 ABE ____5.5__ -mmol/L -2.0 2.0 Assessment & Plan 61 year old male with a history of asthma who presented to the ED on 04/13 after he was intubated in the field for respiratory distress and admitted to the CCU for status asthmaticus, refractory to all inhaled medications. Hospital and intubation day #9. Acute hypercapnic respiratory failure. Present on admission. Resolving - Secondary to status asthmaticus. Extubated 04/22. Still requiring 4L nasal cannula oxygen. - Continue Albuterol 8 puffs via inhaler q4h and decrease IV methylprednisolone to 60mg q12h Acute status asthmaticus. Present on admission. Resolved - Pt presented with severe asthma exacerbation refractory to beta agonist treatment and BiPAP, intubated on admission. - Continue Albuterol, supplemental O2 and steroids as above. Hyperglycemia, acute. Present on admission. Improving - Likely secondary to stress dose steroids, no prior history of diabetes or hyperglycemia. - Continue management per primary team - Bedside glucose checks and repeat CMP in the morning. Acute thrombocytopenia, not present on admission. Improving - Platelets down to 102 from 169 at admission. Heparin held as of 04/21, which was day 7 of heparin. - HIT antibodies, still pending. - Fondaparinux for DVT prophylaxis . VTE Mechanical Devices: Intermittant Pneumatic CD Resuscitation Status: CPR: Attempt Resuscitation rAabella Michaels DO Apr 23, 2017 08:03
--- NOTE | 2017-04-23 10:19 | NUR ---
NUTRITION FOLLOW-UP: Assess: 61 YO male admitted to CCU with acute respiratory failure with asthma exacerbation secondary to pneumonia. He was able to be extubated 04/22. TF is now off. Still no BM since admit. ST has not been ordered yet but per MD it will be ordered today. PMHX: Asthma. DIET: NPO. 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 Solu-medrol, Fentanyl, Insulin. GI: No BM noted x 10 days. SKIN: No issues noted. ANTHROPOMETRICS: Wt: 78.8kg, BMI 23.6 kg/m2, Admit wt: 82.2 kg. ESTIMATED NEEDS: Calories: 1970-2365kcal/day (25-30kcal/kg) Protein: 95-120g/day (1.2-1.5g/kg) NUTRITION DIAGNOSIS: 1) Inadequate oral intake related to decreased ability to consume sufficient energy as evidenced by NPO/VENT status - PERSISTS. INTERVENTION: 1) Recommend ST eval be ordered 2) Recommend add scheduled bowel med regimen 3) If pt is not able to pass ST eval, recommend re-start TF MONITOR/EVALUATE: NPO, ST, BM, POC, labs, GI/nutrition status. Follow per high nutrition risk guidelines.
--- NOTE | 2017-04-23 12:19 | DRSVH ---
PROCEDURE: X-RAY CHEST ONE VIEW, PORTABLE ([id number]) INDICATIONS: post extubation TECHNIQUE: One view of the chest was acquired. COMPARISON: [facility], CR, XR CHEST 1VW (PORTABLE), 04/21/2017, 5:35. [facility], CR, XR CHEST 1VW (PORTABLE), 04/20/2017, 3:37. [facility], CR, XR CHEST 1VW (JUAN MANUEL BLE), 04/17/2017, 8:46. [facility], CR, XR CHEST 1VW (PORTABLE), 04/15/2017, 9:02. [facility], CR, XR CHEST 1VW (PORTABLE), 04/22/2017, 3:48. FINDINGS: Surgical changes and devices: Right PICC tube tip projected over the cavoatrial junction. Lungs and pleura: No pleural effusions or pneumothorax. Lungs are clear. Mediastinum: Mediastinal contours appear normal. Heart size is normal. Bones and chest wall: No suspicious bony lesions. Overlying soft tissues appear unremarkable. IMPRESSION: No acute cardiopulmonary disease. Dictated by: Maximiliano CHICAS Interpreted: Terrance Malone MD on 04/23/2017 at 8:11 Approved by: Hermes Malone M.D. on 04/23/2017 at 12:16
--- NOTE | 2017-04-23 15:09 | PCM.PNMED ---
Subjective Date of Service Apr 23, 2017 Subjective successfully extubated yesterday and did well over noc. No critical events More alert Exam Vital Signs Vital Sign - Last Date Time Temp Pulse Resp B/P Pulse Ox O2 Delivery O2 Flow Rate FiO2 04/23/17 13:03 78 16 99 Nasal Cannula 4.00 04/23/17 12:00 36.5 134/81 04/22/17 11:00 40 Intake and Output 04/22/17 04/22/17 04/23/17 Cumulative From/Thru 15:00 23:00 07:00 04/13/17 20:52 - 04/23/17 06:41 Intake Total 192 ml 157 ml 43061 ml Output Total 1300 ml 1700 ml 29957 ml Balance -1108 ml -1543 ml -669 ml Intake Oral 0 ml IV Total 110 ml 157 ml 44011 ml Tube Feeding 42 ml 1379 ml Tube Irrigant 40 ml 892 ml Output Urine Total 1300 ml 1700 ml 00053 ml Gastric Drainage Total 1750 ml # Voids 1 # Bowel Movements 0 Exam WDWN man resting comfortably. Opens eyes to loud voice Lungs Decreased BS, no wheezes, rales CV RRR, no m/g/r Abd Soft, normal BTs, no HSM Ext Warm, pulses 1 + x 4 Lab and Diagnostics Result Diagram: 04/23/17 0504 04/23/17 0504 Microbiology 04/13/17 Blood Culture - No growth to date 04/14/17 Respiratory PCR negative 04/14/17 Streptococcus pneumoniae Ag Screen -Negative 04/19/17 Sputum Culture- Staphylococcus Aureus; Aspergillus Fumigatus 04/20/17 Repeat Blood Cultures- No growth to date 04/20/17 Fungal antibodies- Negative 04/20/17 Heparin PF4 antibodies -pending X-Rays, CTs and MRIs (04/17/17) X-RAY CHEST ONE VIEW, PORTABLE IMPRESSION: Stable support equipment. Improved mild diffuse ground glass opacities since 04/15/17 suggesting improved atelectasis/aspiration, or pulmonary edema. Please correlate clinically. No new focal consolidation. Dictated and approved by: Jose Aparicio MD. on 04/17/2017 at 10:26 (04/20/17) X-RAY CHEST ONE VIEW, PORTABLE IMPRESSION: Endotracheal tube and nasogastric tube remain in expected positions. No acute pulmonary disease. Dictated by: Ángel Clinton M.D. on 04/20/2017 at 8:49 Approved by: Ángel Clinton M.D. on 04/20/2017 at 8:50 . 12-lead ECG Sinus Tachycardia with nonspecific intraventricular conduction delay. Additional Diagnostics DateTimeAnalyzed 04:57:00 -_ pH ____7.454 - 7.350 7.450 pCO2 ___42.9__ -mmHg 35.0 45.0 pO2 101 -mmHg 69.0 116 HCO3- ___29.7__ -mmol/L 22.0 26.0 ABE ____5.5__ -mmol/L -2.0 2.0 Assessment & Plan 61 year old male with a history of asthma who presented to the ED on 04/13 after he was intubated in the field for respiratory distress and admitted to the CCU for status asthmaticus, refractory to all inhaled medications. Hospital and intubation day #10. . IMP Status asthmaticus with acute respiratory failure doing well post extubation. will decrease steroids, advance activities REC Decrease steroids to once daily PT, OOB, Swallow eval Wean O2 as tolerates . VTE Mechanical Devices: Intermittant Pneumatic CD Resuscitation Status: CPR: Attempt Resuscitation Manuel Rodrigez MD Apr 23, 2017 15:09
--- NOTE | 2017-04-23 17:21 | NUR ---
Social Work-continued d/c planning: Data:EMR reviewed. Pt is on day 10 of hospitalization for acute respiratory failure per H&P. Pt is not medically stable anticipate several more days. Pt extubated 04/22. PT and ST to see pt today. SW to follow up regarding discharge planning and await MD orders. SW will continue to follow. Assessment:Pt who is one day post extubation. Plan: PT and ST are both pending. SW to follow up regarding discharge planning and await MD orders. SW will continue to follow. ELEAZAR Guzman
[2017-04-23] MEDS ORDERED: 0.9% Sodium Chloride 1,000 ML IV ONE (17:35)
[2017-04-23] MEDS ORDERED: MeTOProlol 1 mg/mL 5 mL Inj IVPUSH PRN (17:35)
--- NOTE | 2017-04-23 17:57 | PCM.PNMED ---
Subjective Date of Service Apr 23, 2017 Subjective Pt is a 61 year old male with a history of asthma who presents to the ED via EMS in respiratory distress, and was intubated in the ED. Admitted for status asthmaticus to the CCU. Course has been complicated by airways which are non- specifically extremely reactive to all inhaled compounds, which limits therapeutic options. Hospital day 9. Post extubation day 1. Nursing reports patient somnolent with HTN. Metoprolol and hydralazine given with some improvement. No other acute events overnight. Exam Vital Signs Vital Sign - Last Date Time Temp Pulse Resp B/P Pulse Ox O2 Delivery O2 Flow Rate FiO2 04/23/17 04:30 36.8 78 18 151/87 98 Nasal Cannula 4.00 04/22/17 11:00 40 Intake and Output 04/22/17 04/22/17 04/23/17 Cumulative From/Thru 15:00 23:00 07:00 04/13/17 20:52 - 04/23/17 06:41 Intake Total 192 ml 157 ml 41985 ml Output Total 1300 ml 1700 ml 06747 ml Balance -1108 ml -1543 ml -669 ml Intake Oral 0 ml IV Total 110 ml 157 ml 10858 ml Tube Feeding 42 ml 1379 ml Tube Irrigant 40 ml 892 ml Output Urine Total 1300 ml 1700 ml 45341 ml Gastric Drainage Total 1750 ml # Voids 1 # Bowel Movements 0 Exam Constitutional: Awake, Somnolent. In no acute distress Head: Normocephalic and atraumatic Eyes: EOMI, Pupils equal round and reactive to light. Heart: regular rate and rhythm. No peripheral edema. Lungs: Expiratory wheezes throughout, improved from previous exam. No rales or rhonchi. ABD: Soft. nontender. bowel sounds present throughout. Musculoskeletal: Wiggles toes on command. Squeezes hands on command. 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 Skin: warm, dry Psych: unable to assess secondary to patient's condition. IVs and Medications Medications Reviewed: Medications were reviewed in detail Lab and Diagnostics Item Value Date Time Red Blood Count 4.95 mil/mm3 04/23/17 0504 Mean Corpuscular Hemoglobin 30.5 pg 04/23/17 0504 Mean Corpuscular Volume 88.1 fL 04/23/17 0504 Mean Corpuscular Hemoglobin Concent 34.6 % 04/23/17 0504 Red Cell Distribution Width 12.8 % 04/23/17 0504 Neutrophils (%) (Auto) 90.2 % H 04/23/17 0504 Lymphocytes (%) (Auto) 4.1 % L 04/23/17 0504 Monocytes (%) (Auto) 5.4 % 04/23/17 0504 Eosinophils (%) (Auto) 0 % 04/23/17 0504 Basophils (%) (Auto) 0 % 04/23/17 0504 Estimat Glomerular Filtration Rate 124 mL/min 04/23/17 0504 Calcium Level 9.1 mg/dL 04/23/17 0504 Total Bilirubin 0.9 mg/dL 04/23/17 0504 Aspartate Amino Transf (AST/SGOT) 46 U/L 04/23/17 0504 Alanine Aminotransferase (ALT/SGPT) 76 U/L H 04/23/17 0504 Alkaline Phosphatase 69 U/L 04/23/17 0504 Total Protein 6.3 g/dL L 04/23/17 0504 Albumin 3.5 g/dL 04/23/17 0504 Result Diagram: 04/23/17 0504 04/23/17 0504 Microbiology 04/13/17 Blood Culture - No growth to date 04/13/17 Sputum Culture- Moderate normal pineda 04/14/17 Respiratory PCR negative 04/14/17 Streptococcus pneumoniae Ag Screen -Negative 04/20/17 Repeat Blood Cultures- pending 04/20/17 Fungal antibodies- pending 04/20/17 Heparin PF4 antibodies -pending X-Rays, CTs and MRIs (04/17/17) X-RAY CHEST ONE VIEW, PORTABLE IMPRESSION: Stable support equipment. Improved mild diffuse ground glass opacities since 04/15/17 suggesting improved atelectasis/aspiration, or pulmonary edema. Please correlate clinically. No new focal consolidation. Dictated and approved by: Jose Aparicio MD. on 04/17/2017 at 10:26 (04/20/17) X-RAY CHEST ONE VIEW, PORTABLE IMPRESSION: Endotracheal tube and nasogastric tube remain in expected positions. No acute pulmonary disease. Dictated by: Ángel Clinton M.D. on 04/20/2017 at 8:49 PROCEDURE: X-RAY CHEST ONE VIEW, PORTABLE IMPRESSION: No acute cardiopulmonary disease. Dictated by: Maximilaino Choffel RRA Interpreted: Lilly Morrison MD on 04/22/2017 at 10:18 12-lead ECG Sinus Tachycardia with nonspecific intraventricular conduction delay. Additional Diagnostics DateTimeAnalyzed 04:57:00 -_ pH ____7.454 - 7.350 7.450 pCO2 ___42.9__ -mmHg 35.0 45.0 pO2 101 -mmHg 69.0 116 HCO3- ___29.7__ -mmol/L 22.0 26.0 ABE ____5.5__ -mmol/L -2.0 2.0 Assessment & Plan Pt is a 61 year old male with a history of asthma who presents to the ED via EMS in respiratory distress, and was intubated in the ED. Admitted for status asthmaticus to the CCU. Course has been complicated by airways which are non- specifically extremely reactive to all inhaled compounds, which limits therapeutic options. Patient extubated 04/22. Post extubation day 1. Acute hypercapnic respiratory failure. Present on admission. Improving. - Initial ABG: pH 6.96, pCO2 105, bicarb 22.5, pO2 405. Secondary to status asthmaticus. - Post extubation day 1. Acute status asthmaticus. Present on admission. Improving. - Pt presents with severe asthma exacerbation refractory to beta agonist treatment and BiPAP, intubated on admission. - Post extubation day 1 - Duoneb q4h currently held as this causes bronchospasms - Albuterol inhaler 4 puffs q2h - Decrease Solu Medrol from 80 to 60 mg q6h. Will continue to taper over the next week and adjust according to patient status. Acute respiratory acidosis. Present on admission. Resolved. - Secondary to status asthmaticus. Acute sepsis. Present on admission. Resolved - Secondary to CAP. Lactic acidosis, acute. Present on admission. Resolved - Likely secondary to pneumonia on presentation. - Continue to monitor as needed or if patient spikes a temp. Community acquired pneumonia, acute. Present on admission. Resolved - no longer requiring antibiotics. -CXR showed mild patchy bilateral perihilar opacity. - Strep pneumo and Legionella urine antigens negative - Sputum and blood cultures no growth after 2 days - MRSA screen negative Hyperglycemia, acute. Present on admission. - Pt has no prior history of diabetes. Likely secondary to high dose steroids. - Hold Lantus 25U QHS. Patient blood sugars normalizing as we are tapering steroids. - Recheck BG in AM with CMP Diet: - TPN stopped - Swallow eval scheduled, will progress diet as recommended. - Monitoring CMP, AM Mg - Bowel regimen as needed - Antiemetic as needed - Famotidine for GI prophylaxis Disposition: Patient is still showing signs of severe status asthmaticus. Length of stay is uncertain, patient remains in serious medical condition, and although patient extubated and improving, still requires continued medical care with no definitive end date in sight. GI Prophylaxis: H2 carlo VTE Prophylaxis: Sub-Q Heparin (Unfractionated) VTE Mechanical Devices: Intermittant Pneumatic CD Resuscitation Status: CPR: Attempt Resuscitation Attending Statement The patient was seen and examined together with Dr. Carter on 04/23/2017 and I agree with the history, exam and plan as outlined in the note above. . Coleman Carter DO Apr 23, 2017 06:48 Cody Gentile MD Apr 24, 2017 19:07
--- NOTE | 2017-04-23 18:42 | NUR ---
mentation/activity Pt starting to wake slowly during shift. Oriented but forgetful and does not remember why he was here when reminded. Sleeping intermittently with mumbled speech. at bedside throughout shift. Dangle with PT max 2, q2h turns continue as well as mouth care and skin care. Pt able to take ice chips PO and tolerate well with no cough .Waiting for Speech eval.
[2017-04-23] MEDS: Insulin GLARgine 100 Unit/mL Syringe SUBQ SCH (21:00)
[2017-04-24] VITALS (12 sets, daily range): BP systolic 127–147; BP diastolic 62–82; PULSE 54–79; RESP 14–21; O2SAT 98–99
[2017-04-24] MEDS ORDERED: Ondansetron 2 mg/mL 2 mL Inj IVPUSH PRN (00:15)
[2017-04-24] MEDS: Albuterol 2.5 mg/3 mL Inhalation Solution NEB SCH ×6 (00:39→19:48)
[2017-04-24] MEDS: Insulin Human REGular 300 Unit/3 mL Inj SUBQ SCH ×4 (01:39→20:30)
[2017-04-24 03:36] LABS: BASOPHILS % (AUTO) 0 % (0-3); EOSINOPHILS % (AUTO) 0.5 % (0-5); MONOCYTES % (AUTO) 10.7 % (4-12); Mean Corpuscular Hemoglobin 30.2 pg (27.0-35.0); Mean Corpuscular Volume 88.9 fL (81-100); NEUTROPHILS % (AUTO) 78.4 % (40-74); Platelet Count 144 bil/L (150-400)
--- NOTE | 2017-04-24 05:42 | NUR ---
Lethargic, oriented to place/person. VSS this shift. Maintains 99% on 2L NC, denies SOB. Occasional dry cough. Marked weakness in upper extremities, but able assist somewhat with repositioning in bed. BG 90-104 this shift, lantus held for NPO status and N/V. IVP zofran given x1 for nausea, after which pt had one episode of dark green emesis. Pt's sons and spouse at the bedside alternately this shift. Slept about 6 hours. Pt anxiously awaiting speech eval today.
--- NOTE | 2017-04-24 08:35 | NUR ---
Evaluation completed. Please go to "Notes" then click on "Assessments and Notes" (bottom left corner of screen). Then select appropriate discipline tab on top of screen.
[2017-04-24] MEDS: Pantoprazole 4 mg/mL 10 mL Inj IVPUSH SCH (08:49)
[2017-04-24] MEDS: MethylprednisoLONE Sodium Succinate 62.5 mg/mL 2 mL Inj IVPUSH SCH (08:50)
--- NOTE | 2017-04-24 10:15 | NUR ---
NUTRITION FOLLOW-UP: Assess: 61 YO male admitted to CCU with acute respiratory failure with asthma exacerbation secondary to pneumonia. He was able to be extubated 04/22. TF is now off. Still no BM since admit but pt is reporting that he is passing gas. ST evaluated pt this am but pt was not able to pass due to incomplete swallow. Wt is down 6kg from admit wt. PMHX: Asthma. DIET: NPO. 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 Solu-medrol, Insulin, zofran GI: No BM noted x 11 days. SKIN: No issues noted. ANTHROPOMETRICS: Wt: 76.2kg, BMI 23.6 kg/m2, Admit wt: 82.2 kg. ESTIMATED NEEDS: Calories: 1970-2365kcal/day (25-30kcal/kg) Protein: 95-120g/day (1.2-1.5g/kg) NUTRITION DIAGNOSIS: 1) Inadequate oral intake related to decreased ability to consume sufficient energy as evidenced by NPO/VENT status - PERSISTS. INTERVENTION: 1) Advance diet per ST 2) Recommend add scheduled bowel med regimen once pt is cleared for swallow 3) If pt is not able to pass ST eval, recommend re-start TF MONITOR/EVALUATE: NPO, ST, BM, POC, labs, GI/nutrition status. Follow per high nutrition risk guidelines.
--- NOTE | 2017-04-24 12:52 | PCM.PNMED ---
Subjective Date of Service Apr 24, 2017 Subjective Pt is a 61 year old male with a history of asthma who presents to the ED via EMS in respiratory distress, and was intubated in the ED. Admitted for status asthmaticus to the CCU. Course has been complicated by airways which are non- specifically extremely reactive to all inhaled compounds, which limits therapeutic options. Hospital day 10. Post extubation day 2. Nursing reports patient had some nausea overnight with one episode of emesis. No other acute events overnight. Speech therapy evaluated patient and patient only able to tolerate ice chips. Patient seen and examined laying in bed. Reports continued weakness. Denies any CP, SOB, ABD pain, cough, or headache. Patient has been making good urine output through romeor catheter. Has not had bowel movement. Exam Vital Signs Vital Sign - Last Date Time Temp Pulse Resp B/P Pulse Ox O2 Delivery O2 Flow Rate FiO2 04/24/17 12:20 37.0 79 17 139/77 98 Nasal Cannula 2.00 04/22/17 11:00 40 Intake and Output 04/23/17 04/23/17 04/24/17 Cumulative From/Thru 15:00 23:00 07:00 04/13/17 20:52 - 04/24/17 05:16 Intake Total 104 ml 1114 ml 68069 ml Output Total 1100 ml 1150 ml 08913 ml Balance -996 ml -36 ml -1701 ml Intake Oral 0 ml 0 ml IV Total 104 ml 1114 ml 68887 ml Tube Feeding 1379 ml Tube Irrigant 892 ml Output Urine Total 1100 ml 1000 ml 58046 ml Gastric Drainage Total 1750 ml Emesis 150 ml 150 ml # Voids 1 # Bowel Movements 0 Exam Constitutional: awake, alert and oriented x4. No acute distress. Head: normocephalic and atraumatic Eyes: EOMI, Pupils equal round and reactive to light Heart: regular rate and rhythm. No peripheral edema. Lungs: mild expiratory wheeze. No rales or rhonchi. ABD: soft, nontender. bowel sounds present throughout Musculoskeletal: Moves lower extremities laterally with intention, 2/5 celery tier strength in bilateral hands. Moves UE bilaterally appropriately. Skin: warm, dry, no rashes. Neuro: CN II-XII intact. no focal deficits. Psych: Able to speak rationally with appropriate mood and affect. IVs and Medications IV Fluids 1L NS in the last 24 hours. Medications Reviewed: Medications were reviewed in detail Lab and Diagnostics Item Value Date Time Red Blood Count 4.70 mil/mm3 04/24/17314 Mean Corpuscular Volume 88.9 fL 04/24/17314 Mean Corpuscular Hemoglobin 30.2 pg 04/24/17314 Mean Corpuscular Hemoglobin Concent 34.0 % 04/24/17314 Red Cell Distribution Width 12.7 % 04/24/17314 Neutrophils (%) (Auto) 78.4 % H 04/24/17314 Lymphocytes (%) (Auto) 10.1 % L 04/24/17314 Monocytes (%) (Auto) 10.7 % 04/24/17314 Eosinophils (%) (Auto) 0.5 % 04/24/17314 Basophils (%) (Auto) 0 % 04/24/17314 Estimat Glomerular Filtration Rate 124 mL/min 04/24/17314 Calcium Level 8.6 mg/dL 04/24/17314 Total Bilirubin 1.2 mg/dL 04/24/17314 Aspartate Amino Transf (AST/SGOT) 46 U/L 04/24/17314 Alanine Aminotransferase (ALT/SGPT) 76 U/L H 04/24/17314 Alkaline Phosphatase 60 U/L 04/24/17314 Total Protein 5.7 g/dL L 04/24/17314 Albumin 3.2 g/dL L 04/24/17314 Result Diagram: 04/24/1731404/24/17314 Microbiology 04/13/17 Blood Culture - No growth to date 04/13/17 Sputum Culture- Moderate normal pineda 04/14/17 Respiratory PCR negative 04/14/17 Streptococcus pneumoniae Ag Screen -Negative 04/20/17 Repeat Blood Cultures- pending 04/20/17 Fungal antibodies- pending 04/20/17 Heparin PF4 antibodies -pending X-Rays, CTs and MRIs (04/17/17) X-RAY CHEST ONE VIEW, PORTABLE IMPRESSION: Stable support equipment. Improved mild diffuse ground glass opacities since 04/15/17 suggesting improved atelectasis/aspiration, or pulmonary edema. Please correlate clinically. No new focal consolidation. Dictated and approved by: Jose Aparicio MD. on 04/17/2017 at 10:26 (04/20/17) X-RAY CHEST ONE VIEW, PORTABLE IMPRESSION: Endotracheal tube and nasogastric tube remain in expected positions. No acute pulmonary disease. Dictated by: Ángel Clinton M.D. on 04/20/2017 at 8:49 PROCEDURE: X-RAY CHEST ONE VIEW, PORTABLE IMPRESSION: No acute cardiopulmonary disease. Dictated by: Maximiliano Burns RRA Interpreted: Lilly Morrison MD on 04/22/2017 at 10:18 12-lead ECG Sinus Tachycardia with nonspecific intraventricular conduction delay. Additional Diagnostics DateTimeAnalyzed 04:57:00 -_ pH ____7.454 - 7.350 7.450 pCO2 ___42.9__ -mmHg 35.0 45.0 pO2 101 -mmHg 69.0 116 HCO3- ___29.7__ -mmol/L 22.0 26.0 ABE ____5.5__ -mmol/L -2.0 2.0 Assessment & Plan Pt is a 61 year old male with a history of asthma who presents to the ED via EMS in respiratory distress, and was intubated in the ED. Admitted for status asthmaticus to the CCU. Course has been complicated by airways which are non- specifically extremely reactive to all inhaled compounds, which limits therapeutic options. Patient extubated 04/22. Post extubation day 2. Hospital day 10. Acute hypercapnic respiratory failure. Present on admission. Improving. - Initial ABG: pH 6.96, pCO2 105, bicarb 22.5, pO2 405. Secondary to status asthmaticus. - Post extubation day 2. Acute status asthmaticus. Present on admission. Improving. - Pt presents with severe asthma exacerbation refractory to beta agonist treatment and BiPAP, intubated on admission. - Post extubation day 2 - Duoneb q4h currently held as this causes bronchospasms - Albuterol inhaler 4 puffs q2h - Cpmtinue Solu Medrol at 60 mg q6h. Will continue to taper over the next week and adjust according to patient status. Acute respiratory acidosis. Present on admission. Resolved. - Secondary to status asthmaticus. Acute sepsis. Present on admission. Resolved - Secondary to CAP. Lactic acidosis, acute. Present on admission. Resolved - Likely secondary to pneumonia on presentation. - Continue to monitor as needed or if patient spikes a temp. Community acquired pneumonia, acute. Present on admission. Resolved - no longer requiring antibiotics. -CXR showed mild patchy bilateral perihilar opacity. - Strep pneumo and Legionella urine antigens negative - Sputum and blood cultures no growth after 2 days - MRSA screen negative Hyperglycemia, acute. Present on admission. - Pt has no prior history of diabetes. Likely secondary to high dose steroids. - Lantus 12U QHS. Patient blood sugars normalizing as we are tapering steroids. - Recheck BG in AM with CMP Diet: - TPN stopped - Speech Therapy evaluated patient, ice chips only until strength and ability increases, will progress diet as recommended. - Monitoring CMP, AM Mg - Bowel regimen as needed - Antiemetic as needed - Famotidine for GI prophylaxis -PT for increased strength and ability. Disposition: Patient is still showing signs of severe status asthmaticus. Length of stay is uncertain, patient remains in serious medical condition, and although patient extubated and improving, still requires continued medical care with no definitive end date in sight. GI Prophylaxis: H2 carlo VTE Prophylaxis: Sub-Q Heparin (Unfractionated) VTE Mechanical Devices: Intermittant Pneumatic CD Resuscitation Status: CPR: Attempt Resuscitation Attending Statement Please note patient has had persistent ALT elevations for the past 4 days, likely secondary to prolonged tube feeds, high-dose steroids, and stress of acute illness. The patient was seen and examined together with Dr. Carter on 04/24/2017 and I agree with the history, exam and plan as outlined in the note above. . Coleman Carter DO Apr 24, 2017 12:52 Cody Gentile MD Apr 24, 2017 19:11
--- NOTE | 2017-04-24 18:50 | NUR ---
Patient progressing towards planned outcomes. No respiratory distress. Sp02>98% on 1L 02 per NC. IV solumedrol and breathing tx as scheduled. 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 Pressure stable. Afebrile. PT and ST following. Blood glucose controlled. Will continue to monitor.
[2017-04-24] MEDS: 0.9% Sodium Chloride 1,000 ML IV SCH (19:09)
[2017-04-24] MEDS: Insulin GLARgine 100 Unit/mL Syringe SUBQ SCH (21:00)
[2017-04-25] VITALS (11 sets, daily range): BP systolic 108–128; BP diastolic 55–76; PULSE 50–86; RESP 16–18; O2SAT 95–99
[2017-04-25] MEDS: Insulin Human REGular 300 Unit/3 mL Inj SUBQ SCH ×4 (02:30→20:30)
[2017-04-25 03:01] LABS: Mean Corpuscular Hemoglobin 30.3 pg (27.0-35.0); Mean Corpuscular Volume 88.7 fL (81-100)
[2017-04-25] MEDS: Albuterol 2.5 mg/3 mL Inhalation Solution NEB SCH ×5 (04:35→21:51)
--- NOTE | 2017-04-25 06:02 | NUR ---
Resp/BG/Cardiac Denies SOB, maintains 98% on 1L NC. BG 77-90, lantus held. Remains NPO, few ice chips given for comfort. Sinus gaby 55-60's per heart monitor. Fluid decrease to 75 mL/hr noted, 661 clear yellow urine output via Tins[place]. Spouse at bedside this shift. Care continues.
--- NOTE | 2017-04-25 07:54 | PCM.PNMED ---
Subjective Date of Service Apr 25, 2017 Subjective Continues to do well Progressing with exercise tolerance per PT No new resp complaints Denies SOB, fever, chills Cough productive of small amounts brown mucus Exam Vital Signs Vital Sign - Last Date Time Temp Pulse Resp B/P Pulse Ox O2 Delivery O2 Flow Rate FiO2 04/25/17 04:35 62 16 98 Nasal Cannula 1.00 04/25/17 04:30 36.7 128/76 04/22/17 11:00 40 Intake and Output 04/24/17 04/24/17 04/25/17 Cumulative From/Thru 15:00 23:00 07:00 04/13/17 20:52 - 04/25/17 06:08 Intake Total 1153 ml 661 ml 96969 ml Output Total 1450 ml 850 ml 57049 ml Balance -297 ml -189 ml -2187 ml Intake Oral 150 ml 0 ml 150 ml IV Total 1003 ml 661 ml 68170 ml Tube Feeding 1379 ml Tube Irrigant 892 ml Output Urine Total 1450 ml 850 ml 24726 ml Gastric Drainage Total 1750 ml Emesis 150 ml # Voids 1 # Bowel Movements 0 0 Exam WDWN man in NAD, Speaks in full sentences Lungs Decreased BS, no wheezes, occasional crackles CV NO m/g/r Ext warm, no edema Lab and Diagnostics Result Diagram: 04/25/17 0258 04/25/17 0258 Microbiology 04/13/17 Blood Culture - No growth to date 04/13/17 Sputum Culture- Moderate normal pineda 04/14/17 Respiratory PCR negative 04/14/17 Streptococcus pneumoniae Ag Screen -Negative 04/20/17 Repeat Blood Cultures- pending 04/20/17 Fungal antibodies- pending 04/20/17 Heparin PF4 antibodies -pending X-Rays, CTs and MRIs (04/17/17) X-RAY CHEST ONE VIEW, PORTABLE IMPRESSION: Stable support equipment. Improved mild diffuse ground glass opacities since 04/15/17 suggesting improved atelectasis/aspiration, or pulmonary edema. Please correlate clinically. No new focal consolidation. Dictated and approved by: Jose Aparicio MD. on 04/17/2017 at 10:26 (04/20/17) X-RAY CHEST ONE VIEW, PORTABLE IMPRESSION: Endotracheal tube and nasogastric tube remain in expected positions. No acute pulmonary disease. Dictated by: Ángel Clinton M.D. on 04/20/2017 at 8:49 PROCEDURE: X-RAY CHEST ONE VIEW, PORTABLE IMPRESSION: No acute cardiopulmonary disease. Dictated by: Maximiliano CHICAS Interpreted: Lilly Morrison MD on 04/22/2017 at 10:18 12-lead ECG Sinus Tachycardia with nonspecific intraventricular conduction delay. Additional Diagnostics DateTimeAnalyzed 04:57:00 -_ pH ____7.454 - 7.350 7.450 pCO2 ___42.9__ -mmHg 35.0 45.0 pO2 101 -mmHg 69.0 116 HCO3- ___29.7__ -mmol/L 22.0 26.0 ABE ____5.5__ -mmol/L -2.0 2.0 Assessment & Plan IMP Near fatal asthma / status asthmaticus with acute mixed respiratory failure. Now extubated for 3 days and doing well. Thrombocytopenia, HIT negative, platelet count climbing slowly REC Change steroids to PO today Decrease scheduled albuterol to QID and PRN Advance activity, diet Anticipate discharge early next week to home. GI Prophylaxis: H2 carlo VTE Prophylaxis: Sub-Q Heparin (Unfractionated) VTE Mechanical Devices: Intermittant Pneumatic CD Resuscitation Status: CPR: Attempt Resuscitation Manuel Rodrigez MD Apr 25, 2017 07:54 Acute sepsis. Present on admission. Resolved - Secondary to CAP. Lactic acidosis, acute. Present on admission. Resolved - Likely secondary to pneumonia on presentation. - Continue to monitor as needed or if patient spikes a temp. Community acquired pneumonia, acute. Present on admission. Resolved - no longer requiring antibiotics. -CXR showed mild patchy bilateral perihilar opacity. - Strep pneumo and Legionella urine antigens negative - Sputum and blood cultures no growth after 2 days - MRSA screen negative Hyperglycemia, acute. Present on admission. - Pt has no prior history of diabetes. Likely secondary to high dose steroids. - Lantus 12U QHS. Patient blood sugars normalizing as we are tapering steroids. - Recheck BG in AM with CMP Diet: - TPN stopped - Speech Therapy evaluated patient, ice chips only until strength and ability increases, will progress diet as recommended. - Monitoring CMP, AM Mg - Bowel regimen as needed - Antiemetic as needed - Famotidine for GI prophylaxis -PT for increased strength and ability. Disposition: Patient is still showing signs of severe status asthmaticus. Length of stay is uncertain, patient remains in serious medical condition, and although patient extubated and improving, still requires continued medical care with no definitive end date in sight. GI Prophylaxis: H2 carlo VTE Prophylaxis: Sub-Q Heparin (Unfractionated) VTE Mechanical Devices: Intermittant Pneumatic CD Resuscitation Status: CPR: Attempt Resuscitation Manuel Rodrigez MD Apr 25, 2017 07:54
[2017-04-25] MEDS: Pantoprazole 4 mg/mL 10 mL Inj IVPUSH SCH (08:19)
[2017-04-25] MEDS: MethylprednisoLONE Sodium Succinate 62.5 mg/mL 2 mL Inj IVPUSH SCH (08:24)
[2017-04-25] MEDS: 0.9% Sodium Chloride 1,000 ML IV SCH ×2 (08:25→19:05)
--- NOTE | 2017-04-25 14:33 | NUR ---
NUTRITION FOLLOW-UP: Assess: 61 YO male admitted to CCU with acute respiratory failure with asthma exacerbation secondary to pneumonia. He was able to be extubated 04/22. TF is now off. Still no BM since admit but pt is reporting that he is passing gas. Pt was able to pass ST eval 04/25. Diet has been advanced to pureed w/NT liquids. Wt is down 6kg from admit wt. PMHX: Asthma. DIET: Pureed w/ NT liquids. LABS: sanitation officer .59, Ca 8.3, ALT 56, Alb 2.8 MEDICATIONS: Reviewed. zofran GI: No BM noted x 12 days. SKIN: No issues noted. ANTHROPOMETRICS: Wt: 76.2kg, BMI 23.6 kg/m2, Admit wt: 82.2 kg. ESTIMATED NEEDS: Calories: 1970-2365kcal/day (25-30kcal/kg) Protein: 95-120g/day (1.2-1.5g/kg) NUTRITION DIAGNOSIS: 1) Inadequate oral intake related to decreased ability to consume sufficient energy as evidenced by NPO/VENT status IMPROVING 2) Chew/swallow difficulty related to acute illness as evidence by prolonged intubation and need for pureed diet w/NT liquids per ST. INTERVENTION: 1) Advance diet per ST. Will add NT Ensure on L tray to help increase kcal/pro intake 2) Spoke with MD and scheduled bowel meds has been added as pt has not had a BMx12 days. MONITOR/EVALUATE: PO, ST, BM, POC, labs, GI/nutrition status. Follow per high nutrition risk guidelines.
--- NOTE | 2017-04-25 15:42 | NUR ---
Transfer Report called [place] [facility] [place] Pt participated well in PT today. Receiving a breathing treatment currently. Tolerated puree diet well. No issues with swallowing but difficulty with arm movement. Tinsley patent. No c/o pain.
--- NOTE | 2017-04-25 16:51 | PCM.PNMED ---
Subjective Date of Service Apr 25, 2017 Subjective Pt is a 61 year old male with a history of asthma who presents to the ED via EMS in respiratory distress, and was intubated in the ED. Admitted for status asthmaticus to the CCU. Course has been complicated by airways which are non- specifically extremely reactive to all inhaled compounds, which limits therapeutic options. Hospital day 11. Post extubation day 3. Nursing reports no acute events overnight. Patient seen and examined laying in bed. Denies shortness of breath, chest pain , ABD pain, N/V/D or headache. Patient has had good urine output, but has had no bowel movement. Exam Vital Signs Vital Sign - Last Date Time Temp Pulse Resp B/P Pulse Ox O2 Delivery O2 Flow Rate FiO2 04/25/17 14:24 36.8 86 18 108/55 97 Room Air 04/25/17 11:30 1.00 04/22/17 11:00 40 Intake and Output 04/24/17 04/24/17 04/25/17 Cumulative From/Thru 15:00 23:00 07:00 04/13/17 20:52 - 04/25/17 06:08 Intake Total 1153 ml 661 ml 87735 ml Output Total 1450 ml 850 ml 60855 ml Balance -297 ml -189 ml -2187 ml Intake Oral 150 ml 0 ml 150 ml IV Total 1003 ml 661 ml 84515 ml Tube Feeding 1379 ml Tube Irrigant 892 ml Output Urine Total 1450 ml 850 ml 49970 ml Gastric Drainage Total 1750 ml Emesis 150 ml # Voids 1 # Bowel Movements 0 0 Exam Constitutional: awake, alert and oriented. No acute distress. Head: normocephalic and atraumatic Eyes: EOMI, pupils equal round and reactive to light Heart: regular rate and rhythm. No peripheral edema. Lungs: clear to auscultation bilaterally. No wheeze, rales, or rhochi ABD: soft, nontender, bowel sounds present throughout Musculoskeletal: Moves legs with purposeful intent. Able to transition with assist to bedside chair. Neuro: CN II-XII intact. no focal deficits. Psych: appropriate mood and affect. IVs and Medications Medications Reviewed: Medications were reviewed in detail Lab and Diagnostics Item Value Date Time Red Blood Count 4.33 mil/mm3 L 04/25/17 0258 Mean Corpuscular Volume 88.7 fL 04/25/17 0258 Mean Corpuscular Hemoglobin 30.3 pg 04/25/178 Mean Corpuscular Hemoglobin Concent 34.1 % 04/25/17257 Red Cell Distribution Width 12.7 % 04/25/17257 Estimat Glomerular Filtration Rate 149 mL/min 04/25/178 Calcium Level 8.3 mg/dL L 04/25/178 Total Bilirubin 1.2 mg/dL 04/25/17257 Alanine Aminotransferase (ALT/SGPT) 56 U/L H 04/25/178 Aspartate Amino Transf (AST/SGOT) 32 U/L 04/25/178 Alkaline Phosphatase 55 U/L 04/25/17257 Total Protein 5.3 g/dL L 04/25/17257 Albumin 2.8 g/dL L 04/25/17257 Procalcitonin 0.05 ng/mL 04/25/17257 Result Diagram: 04/25/1725704/25/17257 Microbiology 04/13/17 Blood Culture - No growth to date 04/13/17 Sputum Culture- Moderate normal pineda 04/14/17 Respiratory PCR negative 04/14/17 Streptococcus pneumoniae Ag Screen -Negative 04/20/17 Repeat Blood Cultures- pending 04/20/17 Fungal antibodies- pending 04/20/17 Heparin PF4 antibodies -pending X-Rays, CTs and MRIs (04/17/17) X-RAY CHEST ONE VIEW, PORTABLE IMPRESSION: Stable support equipment. Improved mild diffuse ground glass opacities since 04/15/17 suggesting improved atelectasis/aspiration, or pulmonary edema. Please correlate clinically. No new focal consolidation. Dictated and approved by: Jose Aparicio MD. on 04/17/2017 at 10:26 (04/20/17) X-RAY CHEST ONE VIEW, PORTABLE IMPRESSION: Endotracheal tube and nasogastric tube remain in expected positions. No acute pulmonary disease. Dictated by: Ángel Clinton M.D. on 04/20/2017 at 8:49 PROCEDURE: X-RAY CHEST ONE VIEW, PORTABLE IMPRESSION: No acute cardiopulmonary disease. Dictated by: Maximiliano Burns RRNicole Interpreted: Lilly Morrison MD on 04/22/2017 at 10:18 12-lead ECG Sinus Tachycardia with nonspecific intraventricular conduction delay. Additional Diagnostics DateTimeAnalyzed 04:57:00 -_ pH ____7.454 - 7.350 7.450 pCO2 ___42.9__ -mmHg 35.0 45.0 pO2 101 -mmHg 69.0 116 HCO3- ___29.7__ -mmol/L 22.0 26.0 ABE ____5.5__ -mmol/L -2.0 2.0 Assessment & Plan Pt is a 61 year old male with a history of asthma who presents to the ED via EMS in respiratory distress, and was intubated in the ED. Admitted for status asthmaticus to the CCU. Course has been complicated by airways which are non- specifically extremely reactive to all inhaled compounds, which limits therapeutic options. Patient extubated 04/22. Post extubation day 3. Hospital day 11. Acute hypercapnic respiratory failure. Present on admission. Improving. - Post extubation day 3. Acute status asthmaticus. Present on admission. Improving. - Pt presents with severe asthma exacerbation refractory to beta agonist treatment and BiPAP, intubated on admission. - Post extubation day 3 - Duoneb q4h currently held as this causes bronchospasms - Albuterol inhaler 4 puffs q2h - Cpmtinue Solu Medrol at 60 mg q6h. Will continue to taper over the next week and adjust according to patient status. Acute respiratory acidosis. Present on admission. Resolved. - Secondary to status asthmaticus. Acute sepsis. Present on admission. Resolved - Secondary to CAP. Lactic acidosis, acute. Present on admission. Resolved - Likely secondary to pneumonia on presentation. - Continue to monitor as needed or if patient spikes a temp. Community acquired pneumonia, acute. Present on admission. Resolved - no longer requiring antibiotics. -CXR showed mild patchy bilateral perihilar opacity. - Strep pneumo and Legionella urine antigens negative - Sputum and blood cultures no growth after 2 days - MRSA screen negative Hyperglycemia, acute. Present on admission. - Pt has no prior history of diabetes. Likely secondary to high dose steroids. - Lantus 12U QHS. Patient blood sugars normalizing as we are tapering steroids. - Recheck BG in AM with CMP Diet: - TPN stopped - Puree, soft diet started - Speech Therapy evaluated patient, ice chips only until strength and ability increases, will progress diet as recommended. - Monitoring CMP, AM Mg - Bowel regimen as needed - Antiemetic as needed - Famotidine for GI prophylaxis -PT for increased strength and ability. Disposition: Patient is still showing signs of severe status asthmaticus. Length of stay is uncertain, patient remains in serious medical condition, and although patient extubated and improving, still requires continued medical care with no definitive end date in sight. GI Prophylaxis: H2 carlo VTE Prophylaxis: Sub-Q Heparin (Unfractionated) VTE Mechanical Devices: Intermittant Pneumatic CD Resuscitation Status: CPR: Attempt Resuscitation Attending Statement The patient was seen and examined together with Dr. Carter on 04/25/2017 and I agree with the history, exam and plan as outlined in the note above. . Coleman Carter DO Apr 25, 2017 16:51 Cody Gentile MD Apr 27, 2017 16:19
--- NOTE | 2017-04-25 17:01 | NUR ---
Transfer to [facility] [place] 246-1 Arrived to unit via bed around 1600. O x 3, romero patent draining to gravity, no c/o sob/pain. No bm x 12 days per patient/spouse, miralax to be admin in prune or apple juice. Spouse at bedside, oriented to new room, pureed diet called in by spouse. q3h turn d/t inability to turn self in bed at this time.
[2017-04-25] MEDS: Polyethylene Glycol (PEG) 17 Gm Powder PO SCH (17:12)
[2017-04-25] MEDS: Senna-Docusate 8.6-50 mg Tablet PO SCH (20:55)
[2017-04-25] MEDS: Insulin GLARgine 100 Unit/mL Syringe SUBQ SCH (21:08)
[2017-04-26] VITALS (8 sets, daily range): BP systolic 122–144; BP diastolic 66–84; PULSE 60–95; RESP 16–18; O2SAT 94–98
[2017-04-26] MEDS: Insulin Human REGular 300 Unit/3 mL Inj SUBQ SCH ×4 (02:30→20:30)
--- NOTE | 2017-04-26 04:26 | NUR ---
BG Monitor Assumed pt care at 1930, alert and verbally responsive, BG was 112 at 2100 and 110 at 0230, no correctional dose given, offered snacks and accepted 1:1 assist d/t weakness, tolerating diet, no aspirations noted at this time, encouraged deep breath and coughing, vitals stable, no discomfort voiced this shift, call light in reach at all times.
[2017-04-26 05:53] LABS: Mean Corpuscular Hemoglobin 30.3 pg (27.0-35.0); Mean Corpuscular Volume 89.4 fL (81-100)
[2017-04-26] MEDS: Albuterol 2.5 mg/3 mL Inhalation Solution NEB SCH ×4 (06:00→17:56)
[2017-04-26] MEDS: Polyethylene Glycol (PEG) 17 Gm Powder PO SCH (08:27)
[2017-04-26] MEDS: Senna-Docusate 8.6-50 mg Tablet PO SCH ×2 (08:30→21:00)
[2017-04-26] MEDS: Pantoprazole 4 mg/mL 10 mL Inj IVPUSH SCH (08:39)
[2017-04-26] MEDS: predniSONE 20 mg Tablet PO SCH (08:41)
--- NOTE | 2017-04-26 14:16 | PCM.PNMED ---
Subjective Date of Service Apr 26, 2017 Subjective Generalized weakness continues to improve. Exam Vital Signs Vital Sign - Last Date Time Temp Pulse Resp B/P Pulse Ox O2 Delivery O2 Flow Rate FiO2 04/26/17 12:19 36.8 83 16 144/72 98 04/26/17 09:00 Supplement Oxygen 04/25/17 11:30 1.00 04/22/17 11:00 40 Intake and Output 04/25/17 04/25/17 04/26/17 Cumulative From/Thru 15:00 23:00 07:00 04/13/17 20:52 - 04/26/17 06:21 Intake Total 140 ml 1252 ml 30161 ml Output Total 900 ml 1400 ml 00329 ml Balance -760 ml -148 ml -3095 ml Intake Oral 120 ml 480 ml 750 ml IV Total 20 ml 772 ml 30338 ml Tube Feeding 1379 ml Tube Irrigant 892 ml Output Urine Total 900 ml 1400 ml 08746 ml Gastric Drainage Total 1750 ml Emesis 150 ml # Voids 1 # Bowel Movements 0 0 Exam Constitutional: awake, alert and oriented. No acute distress. Head: normocephalic and atraumatic Eyes: EOMI, pupils equal round and reactive to light Heart: regular rate and rhythm. No peripheral edema. Lungs: clear to auscultation bilaterally. No wheeze, rales, or rhochi ABD: soft, nontender, bowel sounds present throughout Musculoskeletal: Moves legs with purposeful intent. Able to transition with assist to bedside chair. Neuro: CN II-XII intact. no focal deficits. Psych: appropriate mood and affect. IVs and Medications Medications Reviewed: Medications were reviewed in detail Lab and Diagnostics Result Diagram: 04/26/17 0500 04/26/17 0500 Microbiology 04/13/17 Blood Culture - No growth to date 04/13/17 Sputum Culture- Moderate normal pineda 04/14/17 Respiratory PCR negative 04/14/17 Streptococcus pneumoniae Ag Screen -Negative 04/20/17 Repeat Blood Cultures- pending 04/20/17 Fungal antibodies- pending 04/20/17 Heparin PF4 antibodies -pending X-Rays, CTs and MRIs (04/17/17) X-RAY CHEST ONE VIEW, PORTABLE IMPRESSION: Stable support equipment. Improved mild diffuse ground glass opacities since 04/15/17 suggesting improved atelectasis/aspiration, or pulmonary edema. Please correlate clinically. No new focal consolidation. Dictated and approved by: Jose Aparicio MD. on 04/17/2017 at 10:26 (04/20/17) X-RAY CHEST ONE VIEW, PORTABLE IMPRESSION: Endotracheal tube and nasogastric tube remain in expected positions. No acute pulmonary disease. Dictated by: Ángel Clinton M.D. on 04/20/2017 at 8:49 PROCEDURE: X-RAY CHEST ONE VIEW, PORTABLE IMPRESSION: No acute cardiopulmonary disease. Dictated by: Maximiliano Burns RRA Interpreted: Lilly Morrison MD on 04/22/2017 at 10:18 12-lead ECG Sinus Tachycardia with nonspecific intraventricular conduction delay. Additional Diagnostics DateTimeAnalyzed 04:57:00 -_ pH ____7.454 - 7.350 7.450 pCO2 ___42.9__ -mmHg 35.0 45.0 pO2 101 -mmHg 69.0 116 HCO3- ___29.7__ -mmol/L 22.0 26.0 ABE ____5.5__ -mmol/L -2.0 2.0 Assessment & Plan Pt is a 61 year old male with a history of asthma who presents to the ED via EMS in respiratory distress, and was intubated in the ED. Admitted for status asthmaticus to the CCU. Course has been complicated by airways which are non- specifically extremely reactive to all inhaled compounds, which limits therapeutic options. Patient extubated 04/22. Post extubation day 3. Hospital day 11. #Acute hypercapnic respiratory failure. Present on admission. Resolved - Post extubation day 4. #Acute status asthmaticus. Present on admission. Improving. - Pt presents with severe asthma exacerbation refractory to beta agonist treatment and BiPAP, intubated on admission. - Post extubation day 4 - Duoneb q4h currently held as this causes bronchospasms - Albuterol inhaler 4 puffs q2h - Continue predisone 40mg daily. Will continue to taper over the next week and adjust according to patient status. #Acute respiratory acidosis. Present on admission. Resolved. - Secondary to status asthmaticus. #Generalized weakness/deconditioning due to prolonged intubation/hospital course -Continue physical therapy -PT rec SNF #Acute sepsis. Present on admission. Resolved - Secondary to CAP. #Lactic acidosis, acute. Present on admission. Resolved - Likely secondary to pneumonia on presentation. - Continue to monitor as needed or if patient spikes a temp. #Community acquired pneumonia, acute. Present on admission. Resolved - no longer requiring antibiotics. -CXR showed mild patchy bilateral perihilar opacity. - Strep pneumo and Legionella urine antigens negative - Sputum and blood cultures no growth after 2 days - MRSA screen negative #Hyperglycemia, acute. Present on admission. - Pt has no prior history of diabetes. Likely secondary to high dose steroids. - Lantus 12U QHS. Patient blood sugars normalizing as we are tapering steroids. - Recheck BG in AM with CMP Diet: - TPN stopped - Puree, soft diet started - Speech Therapy evaluated patient, ice chips only until strength and ability increases, will progress diet as recommended. - Monitoring CMP, AM Mg - Bowel regimen as needed - Antiemetic as needed - Famotidine for GI prophylaxis -PT for increased strength and ability Remove Tinsley. 04/26 Disposition: [facility] 2-3 days GI Prophylaxis: H2 carlo VTE Prophylaxis: Sub-Q Heparin (Unfractionated) VTE Mechanical Devices: Intermittant Pneumatic CD Resuscitation Status: CPR: Attempt Resuscitation Nicolas Pryor MD Apr 26, 2017 14:16
--- NOTE | 2017-04-26 18:29 | NUR ---
Shift summary Pt worked with PT today. He was able turn himself in bed and reposition with minimal assistance. He is tolerating a dysphagia mechanical diet with thin liquids between meals. Laureano was d/c'd. He was able to void x2 without difficulty. He used the bedpan today and had a BM. Denies pain aside from cramping in his calf muscles. IV fluids were discontinued. Encouraging PO intake of fluids. Continue with plan of care.
[2017-04-26] MEDS: Insulin GLARgine 100 Unit/mL Syringe SUBQ SCH (21:22)
[2017-04-27 00:41] VITALS: PULSE 75; RESP 16; O2SAT 95
[2017-04-27] MEDS: Insulin Human REGular 300 Unit/3 mL Inj SUBQ SCH ×5 (02:30→21:37)
--- NOTE | 2017-04-27 05:57 | NUR ---
Shift note uneventful night still requesting help with turning, urinal frustrated with inability to do simple tasks but motivated to get strength and mobility back to base line
[2017-04-27 06:10] VITALS: BP 120/70; PULSE 61; RESP 18; O2SAT 99
[2017-04-27] MEDS: Pantoprazole 4 mg/mL 10 mL Inj IVPUSH SCH (08:13)
[2017-04-27] MEDS: predniSONE 20 mg Tablet PO SCH (08:13)
[2017-04-27] MEDS: Polyethylene Glycol (PEG) 17 Gm Powder PO SCH (08:15)
[2017-04-27] MEDS: Senna-Docusate 8.6-50 mg Tablet PO SCH ×2 (08:15→20:28)
[2017-04-27 08:17] VITALS: PULSE 68; RESP 16; O2SAT 95
[2017-04-27] MEDS: Albuterol 2.5 mg/3 mL Inhalation Solution NEB SCH (08:17)
--- NOTE | 2017-04-27 10:35 | PCM.PNMED ---
Subjective Date of Service Apr 27, 2017 Subjective 61 yo with near fatal asthma requiring intubation and paralysis initially to facilitate ventilation. Extubated 6 days ago and continues to do well. Working with PT and Speech, their help greatly appreciated. Feels well except for generalized weakness, NO pain SOB. Exam Vital Signs Vital Sign - Last Date Time Temp Pulse Resp B/P Pulse Ox O2 Delivery O2 Flow Rate FiO2 04/27/17 08: 68 16 95 Room Air 04/27/17 06:10 36.7 120/70 04/25/17 11:30 1.00 04/22/17 11:00 40 Intake and Output 04/26/17 04/26/17 04/27/17 Cumulative From/Thru 15:00 23:00 07:00 04/13/17 20:52 - 04/27/17 06:11 Intake Total 480 ml 60 ml 46796 ml Output Total 1200 ml 600 ml 650 ml 35271 ml Balance -1200 ml -120 ml -590 ml -5005 ml Intake Oral 480 ml 60 ml 1290 ml IV Total 45481 ml Tube Feeding 1379 ml Tube Irrigant 892 ml Output Urine Total 1200 ml 600 ml 650 ml 88120 ml Gastric Drainage Total 1750 ml Emesis 150 ml # Voids 1 # Bowel Movements 0 Exam WDWN man appears younger than stated age Speaks in full sentences Lungs Normal exam CV RRR, nl S1S2,no m/g/r IVs and Medications Medications Reviewed: Medications were reviewed in detail Lab and Diagnostics Result Diagram: 04/26/17 0500 04/26/17 0500 Microbiology 04/13/17 Blood Culture - No growth to date 04/13/17 Sputum Culture- Moderate normal pineda 04/14/17 Respiratory PCR negative 04/14/17 Streptococcus pneumoniae Ag Screen -Negative 04/20/17 Repeat Blood Cultures- pending 04/20/17 Fungal antibodies- pending 04/20/17 Heparin PF4 antibodies -pending X-Rays, CTs and MRIs (04/17/17) X-RAY CHEST ONE VIEW, PORTABLE IMPRESSION: Stable support equipment. Improved mild diffuse ground glass opacities since 04/15/17 suggesting improved atelectasis/aspiration, or pulmonary edema. Please correlate clinically. No new focal consolidation. Dictated and approved by: Jose Aparicio MD. on 04/17/2017 at 10:26 (04/20/17) X-RAY CHEST ONE VIEW, PORTABLE IMPRESSION: Endotracheal tube and nasogastric tube remain in expected positions. No acute pulmonary disease. Dictated by: Ángel Clinton M.D. on 04/20/2017 at 8:49 PROCEDURE: X-RAY CHEST ONE VIEW, PORTABLE IMPRESSION: No acute cardiopulmonary disease. Dictated by: Maximiliano Burns RRA Interpreted: Lilly Morrison MD on 04/22/2017 at 10:18 12-lead ECG Sinus Tachycardia with nonspecific intraventricular conduction delay. Additional Diagnostics DateTimeAnalyzed 04:57:00 -_ pH ____7.454 - 7.350 7.450 pCO2 ___42.9__ -mmHg 35.0 45.0 pO2 101 -mmHg 69.0 116 HCO3- ___29.7__ -mmol/L 22.0 26.0 ABE ____5.5__ -mmol/L -2.0 2.0 Assessment & Plan IMP Near fatal asthma / status asthmaticus with acute mixed respiratory failure. Now extubated for 6 days and doing well. Thrombocytopenia, HIT negative, platelet count climbing slowly. As he becomes more active, the fondaparinux can be discontinued. REC Home soon with written asthma action plan, Normal peak flow for his age would be 500 but his personal best might be lower. In the absence of data , I would use 400 L/min as his baseline Thus 80% would be 320 L/min And 50% would be 200 L/min I discussed with Resp Therapy yesterday the possibility of obtaining simple spirometry at the bedside but apparently our equipment in not working so we may need to use these estimates. He should be taught proper MDI use and provided with both a spacer device AND a peak flow meter for home monitoring Pulmonary Consult can help to write a formal asthma action plan for him to take home at time of discharge I've started a LABA/steroid combo inhaler, Advair 500/50 and this should be continued at least until his first outpatient followup in Pulmonary clinic after discharge Dr. Brooks will assume care on Friday GI Prophylaxis: H2 carlo VTE Prophylaxis: Sub-Q Heparin (Unfractionated) VTE Mechanical Devices: Intermittant Pneumatic CD Resuscitation Status: CPR: Attempt Resuscitation Manuel Rodrigez MD Apr 27, 2017 10:35
--- NOTE | 2017-04-27 11:47 | PCM.PNMED ---
Subjective Date of Service Apr 27, 2017 Subjective Breathing improved. Getting stronger every day. Exam Vital Signs Vital Sign - Last Date Time Temp Pulse Resp B/P Pulse Ox O2 Delivery O2 Flow Rate FiO2 04/27/17 08: 68 16 95 Room Air 04/27/17 06:10 36.7 120/70 04/25/17 11:30 1.00 04/22/17 11:00 40 Intake and Output 04/26/17 04/26/17 04/27/17 Cumulative From/Thru 15:00 23:00 07:00 04/13/17 20:52 - 04/27/17 06:11 Intake Total 480 ml 60 ml 63736 ml Output Total 1200 ml 600 ml 650 ml 23179 ml Balance -1200 ml -120 ml -590 ml -5005 ml Intake Oral 480 ml 60 ml 1290 ml IV Total 36661 ml Tube Feeding 1379 ml Tube Irrigant 892 ml Output Urine Total 1200 ml 600 ml 650 ml 04041 ml Gastric Drainage Total 1750 ml Emesis 150 ml # Voids 1 # Bowel Movements 0 Exam Constitutional: awake, alert and oriented. No acute distress. Head: normocephalic and atraumatic Eyes: EOMI, pupils equal round and reactive to light Heart: regular rate and rhythm. No peripheral edema. Lungs: clear to auscultation bilaterally. No wheeze, rales, or rhochi ABD: soft, nontender, bowel sounds present throughout Musculoskeletal: Moves legs ,. Unable to stand up Neuro: CN II-XII intact. no focal deficits. Psych: appropriate mood and affect. IVs and Medications Medications Reviewed: Medications were reviewed in detail Lab and Diagnostics Result Diagram: 04/26/17 0500 04/26/17 0500 Microbiology 04/13/17 Blood Culture - No growth to date 04/13/17 Sputum Culture- Moderate normal pineda 04/14/17 Respiratory PCR negative 04/14/17 Streptococcus pneumoniae Ag Screen -Negative 04/20/17 Repeat Blood Cultures- pending 04/20/17 Fungal antibodies- pending 04/20/17 Heparin PF4 antibodies -pending X-Rays, CTs and MRIs (04/17/17) X-RAY CHEST ONE VIEW, PORTABLE IMPRESSION: Stable support equipment. Improved mild diffuse ground glass opacities since 04/15/17 suggesting improved atelectasis/aspiration, or pulmonary edema. Please correlate clinically. No new focal consolidation. Dictated and approved by: Jose Aparicio MD. on 04/17/2017 at 10:26 (04/20/17) X-RAY CHEST ONE VIEW, PORTABLE IMPRESSION: Endotracheal tube and nasogastric tube remain in expected positions. No acute pulmonary disease. Dictated by: Ángel Clinton M.D. on 04/20/2017 at 8:49 PROCEDURE: X-RAY CHEST ONE VIEW, PORTABLE IMPRESSION: No acute cardiopulmonary disease. Dictated by: Maximiliano Burns RRA Interpreted: Lilly Morrison MD on 04/22/2017 at 10:18 12-lead ECG Sinus Tachycardia with nonspecific intraventricular conduction delay. Additional Diagnostics DateTimeAnalyzed 04:57:00 -_ pH ____7.454 - 7.350 7.450 pCO2 ___42.9__ -mmHg 35.0 45.0 pO2 101 -mmHg 69.0 116 HCO3- ___29.7__ -mmol/L 22.0 26.0 ABE ____5.5__ -mmol/L -2.0 2.0 Assessment & Plan Pt is a 61 year old male with a history of asthma who presents to the ED via EMS in respiratory distress, and was intubated in the ED. Admitted for status asthmaticus to the CCU. Course has been complicated by airways which are non- specifically extremely reactive to all inhaled compounds, which limits therapeutic options. Patient extubated 04/22. Post extubation day 3. Hospital day 11. #Generalized weakness/ -due to deconditioning due to prolonged intubation/hospital course , steroid myopathy unlikely due to short duration of steroid rx .patient has significant generalized weakness -Continue physical therapy -PT rec SNF .no insurance,[place] referral for private pay SNF placement #Acute hypercapnic respiratory failure. Present on admission. Resolved - Post extubation , extubated 04/22 #Acute status asthmaticus. Present on admission. Improving. - Pt presents with severe asthma exacerbation refractory to beta agonist treatment and BiPAP, intubated on admission. - extubated 04/22 - Duoneb q4h currently held as this causes bronchospasms - Albuterol inhaler 4 puffs q2h - Continue predisone 40mg daily. Will continue to taper over the next week and adjust according to patient status. -Advair 500/50 started per pulm #Acute respiratory acidosis. Present on admission. Resolved. - Secondary to status asthmaticus. #Acute sepsis. Present on admission. Resolved - Secondary to CAP. #Lactic acidosis, acute. Present on admission. Resolved - Likely secondary to pneumonia on presentation. - Continue to monitor as needed or if patient spikes a temp. #Community acquired pneumonia, acute. Present on admission. Resolved - no longer requiring antibiotics. -CXR showed mild patchy bilateral perihilar opacity. - Strep pneumo and Legionella urine antigens negative - Sputum and blood cultures no growth after 2 days - MRSA screen negative #Hyperglycemia, acute. Present on admission. - Pt has no prior history of diabetes. Likely secondary to high dose steroids. - Lantus 12U QHS. Patient blood sugars normalizing as we are tapering steroids. - Recheck BG in AM with CMP Diet: - TPN stopped - Puree, soft diet started - Speech Therapy evaluated patient, ice chips only until strength and ability increases, will progress diet as recommended. - Monitoring CMP, AM Mg - Bowel regimen as needed - Antiemetic as needed - Famotidine for GI prophylaxis -PT for increased strength and ability Remove Tinsley. 04/26 Disposition: [facility] ,no insurance ,[place] referral for private pay SNF placement GI Prophylaxis: H2 carlo VTE Prophylaxis: Sub-Q Heparin (Unfractionated) VTE Mechanical Devices: Intermittant Pneumatic CD Resuscitation Status: CPR: Attempt Resuscitation Nicolas Pryor MD Apr 27, 2017 11:47
[2017-04-27] MEDS: Fluticasone-Salmeterol 500-50 Inhaler INHALATION SCH ×2 (13:05→19:56)
[2017-04-27 14:49] VITALS: BP 125/68; PULSE 74; RESP 18; O2SAT 98
--- NOTE | 2017-04-27 16:59 | NUR ---
Activity/Diet Patient up to chair 1PA w/FWW once today. Pt liquids upgraded to thins per speech therapy, all liquids must be in cup with handle. Pt must direct cup on own w/minimal assistance from nursing staff.
[2017-04-27 20:03] VITALS: BP 123/75; PULSE 82; RESP 14; O2SAT 98
[2017-04-27] MEDS: Insulin GLARgine 100 Unit/mL Syringe SUBQ SCH (21:37)
[2017-04-27 21:40] VITALS: PULSE 64; RESP 16; O2SAT 97
--- NOTE | 2017-04-28 04:03 | NUR ---
Activity Pt feeling positive about progress in ADL's. Some temporary frustration with inability to dial and hold phone to ear, but appreciate of nursing staff assistance and states he "never gets depressed, only the one time, when his first ". Able to turn in bed on his own without assistance, walked per day shift and patient report with FWW. Pain under control with tylenol requested once this shift for elbow discomfort. Frequent rounding continues.
[2017-04-28 04:19] VITALS: BP 113/66; PULSE 63; RESP 14; O2SAT 100
[2017-04-28 07:20] VITALS: BP 113/66; PULSE 65; RESP 18; O2SAT 98
[2017-04-28] MEDS: Insulin Human REGular 300 Unit/3 mL Inj SUBQ SCH ×4 (07:30→22:00)
[2017-04-28] MEDS: Pantoprazole 4 mg/mL 10 mL Inj IVPUSH SCH (09:30)
[2017-04-28] MEDS: Fluticasone-Salmeterol 500-50 Inhaler INHALATION SCH ×2 (09:30→20:29)
[2017-04-28] MEDS: Senna-Docusate 8.6-50 mg Tablet PO SCH ×2 (09:31→20:29)
[2017-04-28] MEDS: predniSONE 20 mg Tablet PO SCH (09:32)
[2017-04-28] MEDS: Polyethylene Glycol (PEG) 17 Gm Powder PO SCH (09:32)
[2017-04-28 12:20] VITALS: BP 110/64; PULSE 84; RESP 18; O2SAT 93
--- NOTE | 2017-04-28 13:35 | PCM.PNMED ---
Subjective Date of Service Apr 28, 2017 Subjective breathing improved. Generalized weakness continues to improve every day. Exam Vital Signs Vital Sign - Last Date Time Temp Pulse Resp B/P Pulse Ox O2 Delivery O2 Flow Rate FiO2 04/28/17 07:20 36.7 65 18 113/66 98 Room Air 04/25/17 11:30 1.00 04/22/17 11:00 40 Intake and Output 04/27/17 04/27/17 04/28/17 Cumulative From/Thru 15:00 23:00 07:00 04/13/17 20:52 - 04/28/17 06:38 Intake Total 560 ml 240 ml 92298 ml Output Total 450 ml 575 ml 22534 ml Balance 110 ml -335 ml -5230 ml Intake Oral 560 ml 240 ml 2090 ml IV Total 0 ml 87864 ml Tube Feeding 1379 ml Tube Irrigant 892 ml Output Urine Total 450 ml 575 ml 56895 ml Gastric Drainage Total 1750 ml Emesis 150 ml # Voids 1 # Bowel Movements 0 Exam Constitutional: awake, alert and oriented. No acute distress. Head: normocephalic and atraumatic Eyes: EOMI, pupils equal round and reactive to light Heart: regular rate and rhythm. No peripheral edema. Lungs: clear to auscultation bilaterally. No wheeze, rales, or rhochi ABD: soft, nontender, bowel sounds present throughout Musculoskeletal: generalized weakness ,power 4+/5 allover Neuro: CN II-XII intact. no focal deficits. Psych: appropriate mood and affect. IVs and Medications Medications Reviewed: Medications were reviewed in detail Lab and Diagnostics Result Diagram: 04/26/17 0500 04/26/17 0500 Microbiology 04/13/17 Blood Culture - No growth to date 04/13/17 Sputum Culture- Moderate normal pineda 04/14/17 Respiratory PCR negative 04/14/17 Streptococcus pneumoniae Ag Screen -Negative 04/20/17 Repeat Blood Cultures- pending 04/20/17 Fungal antibodies- pending 04/20/17 Heparin PF4 antibodies -pending X-Rays, CTs and MRIs (04/17/17) X-RAY CHEST ONE VIEW, PORTABLE IMPRESSION: Stable support equipment. Improved mild diffuse ground glass opacities since 04/15/17 suggesting improved atelectasis/aspiration, or pulmonary edema. Please correlate clinically. No new focal consolidation. Dictated and approved by: Jose Aparicio MD. on 04/17/2017 at 10:26 (04/20/17) X-RAY CHEST ONE VIEW, PORTABLE IMPRESSION: Endotracheal tube and nasogastric tube remain in expected positions. No acute pulmonary disease. Dictated by: Ángel Clinton M.D. on 04/20/2017 at 8:49 PROCEDURE: X-RAY CHEST ONE VIEW, PORTABLE IMPRESSION: No acute cardiopulmonary disease. Dictated by: Maximiliano Burns RRA Interpreted: Lilly Morrison MD on 04/22/2017 at 10:18 12-lead ECG Sinus Tachycardia with nonspecific intraventricular conduction delay. Additional Diagnostics DateTimeAnalyzed 04:57:00 -_ pH ____7.454 - 7.350 7.450 pCO2 ___42.9__ -mmHg 35.0 45.0 pO2 101 -mmHg 69.0 116 HCO3- ___29.7__ -mmol/L 22.0 26.0 ABE ____5.5__ -mmol/L -2.0 2.0 Assessment & Plan Pt is a 61 year old male with a history of asthma who presents to the ED via EMS in respiratory distress, and was intubated in the ED. Admitted for status asthmaticus to the CCU. Course has been complicated by airways which are non- specifically extremely reactive to all inhaled compounds, which limits therapeutic options. Patient extubated 04/22. Post extubation day 3. Hospital day 11. #Generalized weakness -due to deconditioning due to prolonged intubation/hospital course , steroid myopathy unlikely due to short duration of steroid rx .patient has significant generalized weakness -Continue physical therapy -PT rec SNF .no insurance,[place] referral for private pay SNF placement -Generalized weakness improving. #Acute hypercapnic respiratory failure. Present on admission. Resolved - Post extubation , extubated 04/22 #Acute status asthmaticus. Present on admission. Improving. - Pt presents with severe asthma exacerbation refractory to beta agonist treatment and BiPAP, intubated on admission. - extubated 04/22 - Albuterol inhaler 4 puffs q2h - predisone 40mg daily. taper to 20 mg daily 04/28 -Advair 500/50 started per pulm 04/27 -pulm to write asthma action plan and follow up with Dr morales outpatient for PFT #Acute respiratory acidosis. Present on admission. Resolved. - Secondary to status asthmaticus. #Acute sepsis. Present on admission. Resolved - Secondary to CAP. #Lactic acidosis, acute. Present on admission. Resolved - Likely secondary to pneumonia on presentation.. #Community acquired pneumonia, acute. Present on admission. Resolved - no longer requiring antibiotics. -CXR showed mild patchy bilateral perihilar opacity. - Strep pneumo and Legionella urine antigens negative - Sputum and blood cultures no growth after 2 days - MRSA screen negative #Hyperglycemia, acute. Present on admission. - Pt has no prior history of diabetes. Likely secondary to high dose steroids. - Lantus 12U QHS. Patient blood sugars normalizing as we are tapering steroids. Lower lantus to 8u HS, will consider discontinuing up on discharge -PT for increased strength and ability Remove Tinsley. 04/26 Disposition: PT rec Discharge to nursing home facility vial BLS ,no insurance ,[place] referral for private pay SNF placement GI Prophylaxis: H2 carlo VTE Prophylaxis: Sub-Q Heparin (Unfractionated) VTE Mechanical Devices: Intermittant Pneumatic CD Resuscitation Status: CPR: Attempt Resuscitation Nicolas Pryor MD Apr 28, 2017 13:34
--- NOTE | 2017-04-28 13:59 | NUR ---
NUTRITION FOLLOW-UP: Assess: 61 YO male admitted to CCU with acute respiratory failure with asthma exacerbation secondary to pneumonia. Pt was extubated 04/22. Pt still with no BM since admit. Diet has been advanced to dysphagia Mechanical with thin liquids and pt is eating 100% of meals. PMHX: Asthma. DIET: Dysphagia Mechanical, Ensure on L tray. PO 100%. LABS: Reviewed. Cr 0.66, Glu 161, ALT 49, ALB 3.2. MEDICATIONS: Reviewed. Miralax, Senna GI: No BM noted x 15 days. ANTHROPOMETRICS: Wt: 76.2 kg, BMI 23.6 kg/m2, Admit wt: 82.2 kg. ESTIMATED NEEDS: Calories: 6823-7540 kcal/day (25-30 kcal/kg BW) Protein: 95-120 g/day (1.2-1.5 g/kg BW) NUTRITION DIAGNOSIS: 1) Inadequate oral intake related to decreased ability to consume sufficient energy as evidenced by NPO/VENT status--RESOLVED. 2) Chew/swallow difficulty related to acute illness as evidence by prolonged intubation and need for pureed diet w/NT liquids per ST--IMPROVING, DIET ADV TO DYSPHAGIA MECHANICAL.. INTERVENTION: 1) Continue to advance diet as tolerated per ST. 2) Continue to send ensure on L trays. 3) Continue bowel regimen as pt has not had BM x 15 days. MONITOR/EVALUATE: PO intake, labs, diet adv, BM, GI/nutrition status. Follow per moderate nutrition risk guidelines.
--- NOTE | 2017-04-28 15:32 | NUR ---
Mobility/resp Pt on RA 93-98%, no c/o SOB. Pt able to ambulate to BR with CGA/FWW. For lunch able to feed self 1/2 of pudding with fatigue noted. Pt feeling stronger, but not near baseline.
--- NOTE | 2017-04-28 15:41 | NUR ---
INTERMEDIATE TRANSFER: Gave access to [facility] and [facility] per [facility] [employer] and MD orders both of these facilities are listed as contracted with [facility]
[2017-04-28 16:29] VITALS: BP 117/75; PULSE 69; RESP 18; O2SAT 96
--- NOTE | 2017-04-28 16:34 | NUR ---
Social Work Note: Continued Discharge Planning Data& Assessment: Per MD in multidisciplinary rounds, pt is getting closer to being medically ready for discharge. Case Management confirmed that pt has [facility] insurance coverage now and pt and pt are agreeable for SNF referrals to be sent to contracted facilities [facility] and [facility]. Pt and pt family do not have a preference at this time but would like to see if either of the facilities will be able to accept pt first. Pt and pt discharge plan if pt is not accepted at a SNF is for pt to return home with family support and outpt PT. Pt family is building a ramp at pt's home, pt had all the old carpeting in place to ensure pt respiratory status would not be exacerbated by any other environmental factors in the home and pt also obtained a wheelchair and 4WW with a seat. Pt is progressing with PT on a daily basis, but PT continues to recommend SNF. Pt and pt plant to discuss discharge options this evening while they await final decisions from [facility] and [facility]. Pt and pt deny any other needs at this time. SW to continue to follow. Plan: Anticipated discharge to SNF pending acceptance vs. Home with outpt PT and family support. Pt and pt deny any other needs at this time. SW to continue to follow. ELEAZAR Dupree
[2017-04-28 20:06] VITALS: BP 105/65; PULSE 78; RESP 18; O2SAT 97
[2017-04-28] MEDS: Pantoprazole 20 mg ER24 Tablet PO SCH (20:29)
[2017-04-28 20:48] VITALS: PULSE 76; RESP 16; O2SAT 98
[2017-04-28] MEDS: Insulin GLARgine 100 Unit/mL Syringe SUBQ SCH (21:23)
[2017-04-29 00:25] VITALS: BP 112/71; PULSE 64; RESP 16; O2SAT 98
--- NOTE | 2017-04-29 03:14 | NUR ---
Pain management Paged Dr. Cardona regarding no pain medication orders. She called back and stated she really didn't believe pain medications was going to help with this issue but if Pt. still C/O pain she would order Oxycodone. Pt. is sleeping after taking Temazepam. No SxS of pain. Addendum: 04/29/17 at 0318 by ALISON QUINTERO RN Disregard wrong pt.
[2017-04-29 05:14] VITALS: BP 121/70; PULSE 65; RESP 17; O2SAT 97
--- NOTE | 2017-04-29 05:32 | NUR ---
Fine Motor Skills Improving Pt. is seeing and feeling improvement in his fine motor skills. VSS and he is in good spirits. Able to ambulant to bathroom w/o assistance.
[2017-04-29 07:30] VITALS: PULSE 69; RESP 16; O2SAT 98
[2017-04-29] MEDS: Insulin Human REGular 300 Unit/3 mL Inj SUBQ SCH ×4 (07:30→21:21)
[2017-04-29] MEDS: Pantoprazole 20 mg ER24 Tablet PO SCH ×2 (08:20→20:03)
[2017-04-29] MEDS: Senna-Docusate 8.6-50 mg Tablet PO SCH ×3 (08:21→20:03)
[2017-04-29] MEDS: Fluticasone-Salmeterol 500-50 Inhaler INHALATION SCH ×2 (08:21→20:03)
[2017-04-29] MEDS: Polyethylene Glycol (PEG) 17 Gm Powder PO SCH ×2 (08:21→08:30)
[2017-04-29] MEDS: predniSONE 20 mg Tablet PO SCH (08:21)
[2017-04-29 08:30] VITALS: BP 127/68; PULSE 63; RESP 16; O2SAT 97
--- NOTE | 2017-04-29 12:17 | PCM.PNMED ---
Subjective Date of Service Apr 29, 2017 Subjective Breathing and generalized weakness continues to improve. Exam Vital Signs Vital Sign - Last Date Time Temp Pulse Resp B/P Pulse Ox O2 Delivery O2 Flow Rate FiO2 04/29/17 08:30 36.8 63 16 127/68 97 Room Air 04/25/17 11:30 1.00 Intake and Output 04/28/17 04/28/17 04/29/17 Cumulative From/Thru 15:00 23:00 07:00 04/13/17 20:52 - 04/29/17 05:45 Intake Total 852 ml 400 ml 21019 ml Output Total 600 ml 46400 ml Balance 852 ml -200 ml -4578 ml Intake Oral 840 ml 400 ml 3330 ml IV Total 12 ml 0 ml 49261 ml Tube Feeding 1379 ml Tube Irrigant 892 ml Output Urine Total 600 ml 99727 ml Gastric Drainage Total 1750 ml Emesis 150 ml # Voids 4 5 # Bowel Movements 0 0 Exam Constitutional: awake, alert and oriented. No acute distress. Head: normocephalic and atraumatic Eyes: EOMI, pupils equal round and reactive to light Heart: regular rate and rhythm. No peripheral edema. Lungs: clear to auscultation bilaterally. No wheeze, rales, or rhochi ABD: soft, nontender, bowel sounds present throughout Musculoskeletal: generalized weakness ,power 4+/5 allover Neuro: CN II-XII intact. no focal deficits. Psych: appropriate mood and affect IVs and Medications Medications Reviewed: Medications were reviewed in detail Lab and Diagnostics Result Diagram: 04/26/17 0500 04/26/17 0500 Microbiology 04/13/17 Blood Culture - No growth to date 04/13/17 Sputum Culture- Moderate normal pineda 04/14/17 Respiratory PCR negative 04/14/17 Streptococcus pneumoniae Ag Screen -Negative 04/20/17 Repeat Blood Cultures- pending 04/20/17 Fungal antibodies- pending 04/20/17 Heparin PF4 antibodies -pending X-Rays, CTs and MRIs (04/17/17) X-RAY CHEST ONE VIEW, PORTABLE IMPRESSION: Stable support equipment. Improved mild diffuse ground glass opacities since 04/15/17 suggesting improved atelectasis/aspiration, or pulmonary edema. Please correlate clinically. No new focal consolidation. Dictated and approved by: Jose Aparicio MD. on 04/17/2017 at 10:26 (04/20/17) X-RAY CHEST ONE VIEW, PORTABLE IMPRESSION: Endotracheal tube and nasogastric tube remain in expected positions. No acute pulmonary disease. Dictated by: Ángel Clinton M.D. on 04/20/2017 at 8:49 PROCEDURE: X-RAY CHEST ONE VIEW, PORTABLE IMPRESSION: No acute cardiopulmonary disease. Dictated by: Maximiliano Burns RRA Interpreted: Lilly oMrrison MD on 04/22/2017 at 10:18 12-lead ECG Sinus Tachycardia with nonspecific intraventricular conduction delay. Additional Diagnostics DateTimeAnalyzed 04:57:00 -_ pH ____7.454 - 7.350 7.450 pCO2 ___42.9__ -mmHg 35.0 45.0 pO2 101 -mmHg 69.0 116 HCO3- ___29.7__ -mmol/L 22.0 26.0 ABE ____5.5__ -mmol/L -2.0 2.0 Assessment & Plan Pt is a 61 year old male with a history of asthma who presents to the ED via EMS in respiratory distress, and was intubated in the ED. Admitted for status asthmaticus to the CCU. Course has been complicated by airways which are non- specifically extremely reactive to all inhaled compounds, which limits therapeutic options. Patient extubated 04/22. Post extubation day 3. Hospital day 11. #Generalized weakness -due to deconditioning due to prolonged intubation/hospital course , steroid myopathy unlikely due to short duration of steroid rx .patient has significant generalized weakness -Continue physical therapy -PT rec SNF .SW working on SNF placement -Generalized weakness improving. Patient may progress and eventually discharged home if continues to improve and SNF placement becomes challenging #Acute hypercapnic respiratory failure. Present on admission. Resolved - Post extubation , extubated 04/22 #Acute status asthmaticus. Present on admission. Improving. - Pt presents with severe asthma exacerbation refractory to beta agonist treatment and BiPAP, intubated on admission. - extubated 04/22 - Albuterol inhaler 4 puffs q2h - predisone 40mg daily. taper to 20 mg daily 04/28 -Advair 500/50 started per pulm 04/27 -will write asthma action plan . Recommend follow up with Dr Abdul outpatient for PFT -Baseline peak flow 400L/m, 80% 320, 50% 100 #Acute respiratory acidosis. Present on admission. Resolved. - Secondary to status asthmaticus. #Acute sepsis. Present on admission. Resolved - Secondary to CAP. #Lactic acidosis, acute. Present on admission. Resolved - Likely secondary to pneumonia on presentation.. #Community acquired pneumonia, acute. Present on admission. Resolved - no longer requiring antibiotics. -CXR showed mild patchy bilateral perihilar opacity. - Strep pneumo and Legionella urine antigens negative - Sputum and blood cultures no growth after 2 days - MRSA screen negative #Hyperglycemia, acute. Present on admission. - Pt has no prior history of diabetes. Likely secondary to high dose steroids. - Lantus 12U QHS. Patient blood sugars normalizing as we are tapering steroids. Lower lantus to 8u HS, will consider discontinuing up on discharge -PT for increased strength and ability Remove Tinsley. 04/26 Disposition: PT rec Discharge to detention facility vial BLS ,,SW referral for SNF placement Generalized weakness improving. Patient may progress and eventually discharged home in few days if continues to improve and SNF placement becomes challenging GI Prophylaxis: H2 carlo VTE Prophylaxis: Sub-Q Heparin (Unfractionated) VTE Mechanical Devices: Intermittant Pneumatic CD Resuscitation Status: CPR: Attempt Resuscitation Nicolas Pryor MD Apr 29, 2017 12:17
[2017-04-29 13:00] VITALS: BP 124/78; PULSE 82; RESP 18; O2SAT 98
--- NOTE | 2017-04-29 15:53 | NUR ---
Social Work Note: Continued Discharge Planning/Readiness for Discharge Data& Assessment: Per MD in multidisciplinary rounds, pt is getting closer to being medically ready for discharge. Per PT, pt has improved and is safe to discharge home with home health services. In response to MD order to Home Health RN, PT and OT 2x a week, SW confirmed with both Britni from [facility] and Joo from [facility] that they are able to accept pt [employer] insurance for services. SW provided Home Health list to pt and pt for preferences. Pt explained they would like to open with which ever agency is able to open with them the soonest. Per Britni from [facility], they are able to open services this 05/01/2017. Per Joo from [facility], they are able to open services on Friday05/02/2017. Referral provided to [facility]. Pt has obtained a wheelchair and 4WW and pt's friends are installing a wheelchair ramp for easy access into the home if needed. Pt has also installed new carpeting to ensure pt's respiratory status is not exacerbated any further once pt is discharged on. Pt and pt deny any other needs at this time. SW to continue to follow if any needs arise. Plan: Anticipated discharge home via POV when medically ready with [facility] PT, RN and OT to open on 05/01/2017 2x a week. Pt and pt deny any other needs at this time. SW to continue to follow if any needs arise. ELEAZAR Dupree
--- NOTE | 2017-04-29 17:19 | NUR ---
Shift Report Jairo continues to rehab and progress. Advanced diet and greater mobility today. Worked with case management for discharge planning - plan formulated with that will work for patient and her to continue to progress his strength at home in a safe environment.
[2017-04-29 17:46] VITALS: BP 115/67; PULSE 67; RESP 16; O2SAT 97
[2017-04-29] MEDS: Insulin GLARgine 100 Unit/mL Syringe SUBQ SCH (21:55)
[2017-04-30 01:59] VITALS: BP 111/64; PULSE 61; RESP 16; O2SAT 100
--- NOTE | 2017-04-30 03:44 | NUR ---
Activity Pt reported improved mobility and a successful PT session today with stairs. He stated he has walked around the unit with FWW a few times and was sitting in chair much of the day. He is feeling positive and excited to get home tomorrow and continue his rehabilitation. Pt rested comfortably during the night.
[2017-04-30 06:09] VITALS: BP 116/69; PULSE 79; RESP 18; O2SAT 100
[2017-04-30] MEDS: Insulin Human REGular 300 Unit/3 mL Inj SUBQ SCH (07:30)
[2017-04-30] MEDS ORDERED: FLUT1DIS5 INHALATION (07:35)
[2017-04-30] MEDS ORDERED: PRED-508 PO (07:35)
[2017-04-30] MEDS ORDERED: ALBU2.5V4 INHALATION (07:35)
[2017-04-30] MEDS: Pantoprazole 20 mg ER24 Tablet PO SCH (08:30)
[2017-04-30] MEDS: Polyethylene Glycol (PEG) 17 Gm Powder PO SCH (08:30)
[2017-04-30] MEDS: Senna-Docusate 8.6-50 mg Tablet PO SCH (08:30)
[2017-04-30] MEDS: Fluticasone-Salmeterol 500-50 Inhaler INHALATION SCH (08:49)
[2017-04-30] MEDS: predniSONE 20 mg Tablet PO SCH (08:49)
[2017-04-30 09:45] VITALS: PULSE 70; RESP 16; O2SAT 98
--- NOTE | 2017-04-30 10:49 | PCM.DIMED ---
Discharge Instructions Date of Service Apr 30, 2017 Dates of Hospitalization Apr 13, 2017 at 21:56 Discharge Diagnosis Discharge Diagnosis acute dx Acute respiratory failure due to status asthmaticus Generalized weakness, likely critical illness neuropathy Acute respiratory acidosis secondary to status asthmaticus. Acute sepsis secondary to CAP. Hyperglycemia in the setting steroid use. Medication Instructions Additional med instructions Please use Advair 1puff twice a day Please use albuterol MDI inhaler or nebulizer only when you feels shortness of breath Please continue to take prednisone 20mg daily for 3more days Diet Discharge Diet: No restrictions Activity Discharge Activity: No restrictions Call your provider Call your provider for: Shortness of breath Patient Instructions Patient Instructions You were hospitalized with difficulty of breathing with severe asthma attack. You underwent prolonged course in ICU with mechanical ventilation. Your condition dramatically improved with combination of medications. Please follow medication instruction as above. Please follow Asthma Action Plan and follow with in 2weeks Patient can benefit from HH and PT, RN visit, OT 3times per week given generalized weakness. which will be arranged at the time of discharge Follow-up Provider: Stephie Abdul MD Follow-up with PCP in: 2 weeks Soila Stearns MD Apr 30, 2017 07:38
--- NOTE | 2017-04-30 11:34 | NUR ---
Social Work-discharge: Data:EMR reviewed. Pt is on day 17 of hospitalization for Acute respiratory failure per H&P. Pt is medically stable for discharge home. PT has cleared pt for home with HH Services. SW informed Britni with [facility] of the discharge and provided her with F2F and orders for RN,PT, and OT. Britni confirms they will likely be able to open with pt on 05/01 pending insurance authorization. Pt has w/c and fww for home use. Pt's to provide transport home today. Pt and updated and agreeable to plan. Assessment:pt who would benefit from HH. Plan:Pt to discharge home today via POV. F2F and orders provided to [facility] for RN,PT, and OT. Pt has w/c and fww for home use. Pt and updated and agreeable to plan. Shanthi Moore MSW
--- NOTE | 2017-04-30 12:03 | NUR ---
Discharge Pt d/c at 1100 w/ spouse. Transported to car via w/ staff. Time taken to go over d/c plan w/ pt and , they stated understanding and had no further questions. Teaching regarding prednisone and need to f/u reinforced. Pt and left feeling comfortable with d/c plan. It was a pleasure to take care of this pt.
--- NOTE | 2017-04-30 15:47 | PCM.DC.MED ---
Discharge Summary Date of Service Apr 30, 2017 Dates of Hospitalization Date of Hospital Admission Apr 13, 2017 at 21:56 Date of Discharge: Apr 30, 2017 Providers: Admitting Physician: Chloe Felix DO Primary Care Physician: Nadya Burns Attending Physician: Soila Dooley MD Diagnosis at Time of Discharge Diagnosis at Time of Discharge acute dx Acute respiratory failure due to status asthmaticus Generalized weakness, likely critical illness neuropathy Acute respiratory acidosis secondary to status asthmaticus. Acute sepsis secondary to CAP. Hyperglycemia in the setting steroid use. Consultations Pulmonary Procedures XRay, CTs & MRIs (04/17/17) X-RAY CHEST ONE VIEW, PORTABLE IMPRESSION: Stable support equipment. Improved mild diffuse ground glass opacities since 04/15/17 suggesting improved atelectasis/aspiration, or pulmonary edema. Please correlate clinically. No new focal consolidation. Dictated and approved by: Jose Aparicio MD. on 04/17/2017 at 10:26 (04/20/17) X-RAY CHEST ONE VIEW, PORTABLE IMPRESSION: Endotracheal tube and nasogastric tube remain in expected positions. No acute pulmonary disease. Dictated by: Ángel Clinton M.D. on 04/20/2017 at 8:49 PROCEDURE: X-RAY CHEST ONE VIEW, PORTABLE IMPRESSION: No acute cardiopulmonary disease. Dictated by: Maximiliano Burns RRA Interpreted: Lilly Morrison MD on 04/22/2017 at 10:18 ECG 12 Lead Sinus Tachycardia with nonspecific intraventricular conduction delay. Other Diagnostics DateTimeAnalyzed 04:57:00 -_ pH ____7.454 - 7.350 7.450 pCO2 ___42.9__ -mmHg 35.0 45.0 pO2 101 -mmHg 69.0 116 HCO3- ___29.7__ -mmol/L 22.0 26.0 ABE ____5.5__ -mmol/L -2.0 2.0 Brief History HPI obtained by Dr. Felix on 04/13 Pt is a 61 year old male with a history of asthma who presents to the ED via EMS in respiratory distress. Per his , he had complained of coughing, wheezing, and shortness of breath over the last 3-4 days associated with a recent cold. She states that his coughing and wheezing worsened over the last few days, and today he began to have worsening shortness of breath. This afternoon, he suddenly told her "I can't breathe", and began to decompensate, at which point EMS was contacted. He was found struggling to breathe, but awake and alert. He was given several albuterol nebulizer treatments and epinephrine en route without any improvement. He remained hypoxic, and was placed on 15L of O2 as well as on CPAP while en route. He was found to be unresponsive on arrival , and was intubated. ABG on arrival showed pH of 6.9 and a PCO2 of 105. He was given an amp of bicarbonate followed by a drip of sodium acetate. CXR showed mild patchy bilateral perihilar opacity suspicious for atypical pneumonia. Temp was 36.2, HR 114, RR up to 40, BP 141/95, and O2 sat 99 on the ventilator. Hospital Course Brief hospital course Pt is a 61 year old male with a history of asthma who presents to the ED via EMS in respiratory distress, and was intubated in the ED. Admitted for status asthmaticus to the CCU. Course has been complicated by airways which are non- specifically extremely reactive to all inhaled compounds, which limits therapeutic options. Patient extubated 04/22. pt developed generalized weakness, which was thought to be multifactorial, eventually pt regained his motor strength rather quickly, deemed safe to d/c to home with PT/OT, HH, RN visit. Patient was also treated for pneumonia, developed sepsis, finished course of abx. patient also had hyperglycemia, which was in the setting of steroid. On the day of d/c, plan was to continue Advair regularly. albuterol as needed and follow up with in the clinic in 2weeks. Steroid taper 20mg 3more days. #Generalized weakness -due to deconditioning due to prolonged intubation/hospital course , steroid myopathy unlikely due to short duration of steroid rx .patient has significant generalized weakness -Continue physical therapy -PT rec SNF .SW working on SNF placement -Generalized weakness improving. Patient may progress and eventually discharged home if continues to improve and SNF placement becomes challenging #Acute hypercapnic respiratory failure. Present on admission. Resolved - Post extubation , extubated 04/22 #Acute status asthmaticus. Present on admission. Improving. - Pt presents with severe asthma exacerbation refractory to beta agonist treatment and BiPAP, intubated on admission. - extubated 04/22 - Albuterol inhaler 4 puffs q2h - predisone 40mg daily. taper to 20 mg daily 04/28 -Advair 500/50 started per pulm 04/27 -will write asthma action plan . Recommend follow up with Dr Abdul outpatient for PFT -Baseline peak flow 400L/m, 80% 320, 50% 100 #Acute respiratory acidosis. Present on admission. Resolved. - Secondary to status asthmaticus. #Acute sepsis. Present on admission. Resolved - Secondary to CAP. #Lactic acidosis, acute. Present on admission. Resolved - Likely secondary to pneumonia on presentation.. #Community acquired pneumonia, acute. Present on admission. Resolved - no longer requiring antibiotics. -CXR showed mild patchy bilateral perihilar opacity. - Strep pneumo and Legionella urine antigens negative - Sputum and blood cultures no growth after 2 days - MRSA screen negative #Hyperglycemia, acute. Present on admission. - Pt has no prior history of diabetes. Likely secondary to high dose steroids. - Lantus 12U QHS. Patient blood sugars normalizing as we are tapering steroids. Lower lantus to 8u HS, will consider discontinuing up on discharge -PT for increased strength and ability Remove Tinsley. 04/26 Disposition: PT rec Discharge to [facility] facility vial BLS ,,SW referral for SNF placement Generalized weakness improving. Patient may progress and eventually discharged home in few days if continues to improve and SNF placement becomes challenging Exam Vital Signs (Last) Date Time Temp Pulse Resp B/P Pulse Ox O2 Delivery O2 Flow Rate FiO2 04/30/17 09:45 70 16 98 Room Air 04/30/17 06:09 36.7 116/69 04/25/17 11:30 1.00 Exam pt was examined on the day of d/c, CTAB no w,c Test 04/13/17 20:26 04/14/17 08:45 04/16/17 06:37 04/20/17 12:50 Hold Purple Top Tube Received (Received) Hold Blue Top Tube Received (Received) Hemoglobin A1c 5.7% (4.8-5.6) Troponin T 0.010ug/L (0.0-0.011) Pro-B-Type Natriuretic Peptide 62.58pg/mL (0-210) Hold Red Top Tube Received (Received) Hold [place] Top Tube Received (Received) Hold [place] Top Tube Received (Received) Urine Legionella pneumophilia Ag Negative (Negative) Lactic Acid Level 1.5mmol/L (0.4-2.0) Heparin-PF4 Ab Optical Density 0.072OD (<0.4) Heparin-PF4 Antibody Interpretation Not indicated Fungal Antibodies <31pg/mL (<80) Test 04/20/17 13:08 04/21/17 07:24 04/22/17 03:30 04/24/17 03:15 Urine Color Straw (YELLOW) Urine Appearance Clear (CLEAR,HAZY) Urine pH 7.0 (5.0-8.0) Urine Specific [place] 1.015 (1.003-1.035) Urine Protein Negativemg/dL (NEG,TRACE) Urine Glucose (UA) Negativemg/dL (NEGATIVE) Urine Ketones Negativemg/dL (NEGATIVE) Urine Occult Blood Small (NEGATIVE) Urine Nitrite Negative (NEGATIVE) Urine Bilirubin Negative (NEGATIVE) Urine Urobilinogen Normalmg/dL (NORMAL) Urine Leukocyte Esterase Negative (NEGATIVE) Urine RBC 0-2/hpf (0-2) Urine WBC 0-5/hpf (0-5) Urine Epithelial Cells None/hpf (NONE-MOD) Urine Crystals None seen (NONE SEEN) Urine Bacteria None/hpf (NONE-FEW) Urine Hyaline Casts None/lpf (NONE) Urine Granular Casts None seen (NONE SEEN) Urine Waxy Casts None seen (NONE SEEN) Urine Red Blood Cell Casts None seen (NONE SEEN) Urine White Blood Cell Casts None seen (NONE SEEN) Urine Mucus Present (None Seen) Urine Trichomonas None seen (NONE SEEN) Urine Yeast None (NONE SEEN) Urinalysis Comment None Urine Culture Reflexed Not indicated Theophylline Level 8.4ug/mL Rx (10.0-20.0) Phosphorus Level 4.7mg/dL (2.5-4.9) Magnesium Level 2.2mg/dL (1.6-2.6) Neutrophils (%) (Auto) 78.4% (40-74) Lymphocytes (%) (Auto) 10.1% (14-46) Monocytes (%) (Auto) 10.7% (4-12) Eosinophils (%) (Auto) 0.5% (0-5) Basophils (%) (Auto) 0% (0-3) Test 04/25/17 02:58 04/26/17 05:00 04/27/17 12:45 Procalcitonin 0.05ng/mL (0.00-0.08) White Blood Count 8.4th/mm3 (3.8-10.1) Red Blood Count 4.36mil/mm3 (4.40-5.80) Hemoglobin 13.2g/dL (13.8-17.2) Hematocrit 39.0% (41.0-50.0) Mean Corpuscular Volume 89.4fL (81-100) Mean Corpuscular Hemoglobin 30.3pg (27.0-35.0) Mean Corpuscular Hemoglobin Concent 33.8% (32.0-37.0) Red Cell Distribution Width 12.8% (12.3-15.4) Platelet Count 166bil/L (150-400) Sodium Level 143mEq/L (134-144) Potassium Level 4.0mEq/L (3.5-5.2) Chloride Level 107mEq/L (97-108) Carbon Dioxide Level 23mmol/L (18-29) Blood Urea Nitrogen 23mg/dL (8-27) Creatinine 0.66mg/dL (0.76-1.27) Estimat Glomerular Filtration Rate 131mL/min (>59) Glucose Level 161mg/dL (60-99) Calcium Level 8.5mg/dL (8.5-10.1) Total Bilirubin 0.9mg/dL (0.0-1.2) Aspartate Amino Transf (AST/SGOT) 29U/L (0-50) Alanine Aminotransferase (ALT/SGPT) 49U/L (0-44) Alkaline Phosphatase 58U/L (25-160) Total Protein 5.1g/dL (6.4-8.4) Albumin 3.2g/dL (3.4-5.0) Erythrocyte Sedimentation Rate 3mm/hr (0-30) Total Creatine Kinase 219U/L (21-232) Microbiology Results 04/13/17 Blood Culture - No growth to date 04/13/17 Sputum Culture- Moderate normal pineda 04/14/17 Respiratory PCR negative 04/14/17 Streptococcus pneumoniae Ag Screen -Negative 04/20/17 Repeat Blood Cultures- pending 04/20/17 Fungal antibodies- pending 04/20/17 Heparin PF4 antibodies -pending Discharge Medications Discharge Medications Fluticasone/Salmeterol (Advair 500-50 Diskus) 1 Each Disk.w.dev 1 PUFF INHALATION BID Prescribed by: SOILA DOOLEY MD Prednisone (Deltasone) 20 Mg Tablet 20 MG PO DAILY Prescribed by: SOILA DOOLEY MD As needed Albuterol Neb Soln (Albuterol Neb Soln) 2.5 Mg/3 Ml Vial.neb 2.5 MG INHALATION Q4H PRN PRN For Dyspepsia or Heartburn Prescribed by: SOILA DOOLEY MD Fluticasone Propionate (Flonase Allergy Relief) 50 Mcg/Actuation [place].susp 9.9 ML NS DIRECTED PRN PRN For Congestion (Reported) Additional med instructions Please use Advair 1puff twice a day Please use albuterol MDI inhaler or nebulizer only when you feels shortness of breath Please continue to take prednisone 20mg daily for 3more days Followup Plan Disposition: home with HH, RN ,PT, OT Discharge Diet: No restrictions Discharge Activity: No restrictions Patient Instructions You were hospitalized with difficulty of breathing with severe asthma attack. You underwent prolonged course in ICU with mechanical ventilation. Your condition dramatically improved with combination of medications. Please follow medication instruction as above. Please follow Asthma Action Plan and follow with in 2weeks Patient can benefit from HH and PT, RN visit, OT 3times per week given generalized weakness. which will be arranged at the time of discharge Follow-up Provider: Stephie Abdul MD Follow-up with PCP in: 2 weeks Time spent 65min Soila Dooley MD Apr 30, 2017 15:46
--- NOTE | 2017-05-02 13:13 | NUR ---
Scheduled Hospital Follow up for Friday05/05/17 check in at 135PM for 150PM appointment . Fax # is [phone] Updated Britni at [facility]
== END 2017-04-30 11:00 | disposition home health service (06) | DRG 870 ==
LOC: SED 20:23 → EDBD 20:23 → CCU 21:56 → PCC 04-23 18:03 → MOC 04-25 16:22
PROVIDERS: ADMIT Internal Medicine; ATTEND Internal Medicine
PROC: 5A1955Z Respiratory Ventilation, Greater than 96 Consecutive Hours (ICD-10-PCS; principal; 2017-04-13)
PROC: 4A033R1 Measurement of Arterial Saturation, Peripheral, Percutaneous Approach (ICD-10-PCS; 2017-04-13)
PROC: 0BH17EZ Insertion of Endotracheal Airway into Trachea, Via Natural or Artificial Opening (ICD-10-PCS; 2017-04-13)
DX: A41.9 Sepsis, unspecified organism (principal); J96.02 Acute respiratory failure with hypercapnia; G62.81 Critical illness polyneuropathy; J45.52 Severe persistent asthma with status asthmaticus; J18.9 Pneumonia, unspecified organism; E87.2 Acidosis; E87.0 Hyperosmolality and hypernatremia; D69.6 Thrombocytopenia, unspecified; R73.9 Hyperglycemia, unspecified